=== PATIENT | male | born 1960 | race African-American/Black ===

== ENCOUNTER 2016-08-01 22:15 | Inpatient (IN) | payer OTHER, MEDICAID ==
[~2016-08-01] VITALS: Ht 188 cm; Wt 79.1 kg
[~2016-08-01 22:15] MED LIST: ASPI-807 PO; CALC667C PO; CARV25TA PO; CLOP75TA2 PO; FAMO20TA80 PO; FOLI1TAB16 PO; HYDR1TAB PO; LISI10TA5 PO; SEVE800T PO
[2016-08-01] MEDS ORDERED: FUROSEMIDE 40 MG/4 ML VIAL IV ONE (22:30)
[2016-08-01] MEDS ORDERED: ALBUTEROL FS 2.5 MG/3 ML VIAL.NEB NEB ONE (22:30)
[2016-08-01 22:50] LABS: BASOPHILS % (AUTO) 0.2 % (0.0-2.0); DIFF TOTAL % 100 %; EOSINOPHILS # (AUTO) 0.1 /CMM (0.0-0.7); HEMATOCRIT 34 % (39-51); HEMOGLOBIN 11.2 g/dL (13.5-17.5); LYMPHOCYTES # (AUTO) 0.7 /CMM (0.8-4.8); LYMPHOCYTES % (AUTO) 5.5 % (20.0-44.0); MEAN CORPUSCULAR HEMOGLOBIN 33 PG (26.0-33.0); MEAN CORPUSCULAR HGB CONC 33 g/dl (31.0-36.0); MEAN CORPUSCULAR VOLUME 100 fL (80-96); MONOCYTES # (AUTO) 0.9 /CMM (0.1-1.30); MONOCYTES % (AUTO) 7.6 % (2.0-12.0); NEUTROPHILS # (AUTO) 10.4 /CMM (1.8-8.9); NEUTROPHILS % (AUTO) 85.7 % (43.0-81.0); PLATELET COUNT (AUTO) 233 /CMM (150-450); RED BLOOD CELL COUNT(AUTO) 3.42 MIL/uL (4.5-6.0); WHITE BLOOD COUNT (AUTO) 12.1 K/uL (4.3-11.0)
[2016-08-01 22:58] LABS: CALCIUM, SERUM 9.2 mg/dL (8.5-10.1)
[2016-08-01 23:08] LABS: INR 1.02 (0.87-1.13); TROPONIN I 0.046 ng/mL (0.00-0.056)
[2016-08-01 23:10] LABS: LACTIC ACID 1.6 mmol/L (0.4-2.0)
[2016-08-01 23:11] LABS: CREATININE 8.2 mg/dL (0.6-1.3)
[2016-08-01 23:17] LABS: ALBUMIN 3.9 g/dL (3.4-5.0); BILIRUBIN,DIRECT 0.2 mg/dL (0.0-0.2); INDIRECT BILIRUBIN 0.8 mg/dL (0.0-1.1); TOTAL PROTEIN, SERUM 7.9 g/dL (6.4-8.2)
[2016-08-01] MEDS ORDERED: ALBUTEROL FS 2.5 MG/3 ML VIAL.NEB ONE (23:34)
[2016-08-01] MEDS ORDERED: FUROSEMIDE 40 MG/4 ML VIAL ONE (23:41)
[2016-08-02] MEDS ORDERED: ATOR20TA PO (00:48)
[2016-08-02 01:30] VITALS: BP 126/78
[2016-08-02 01:45] VITALS: BP 126/78
[2016-08-02] MEDS ORDERED: ONDANSETRON HCL/PF 4 MG/2 ML VIAL IVP PRN (02:00)
[2016-08-02] MEDS ORDERED: HYDROCODONE/APAP 5/325MG 1 EACH TABLET PO PRN (02:00)
[2016-08-02] MEDS ORDERED: ZOLPIDEM TARTRATE 5 MG TABLET PO PRN (02:00)
[2016-08-02] MEDS ORDERED: MAG HYDROX/AL HYDROX/SIMETH 30 ML UDC PO PRN (02:00)
[2016-08-02] MEDS ORDERED: ACETAMINOPHEN 325 MG TABLET PO PRN (02:00)
[2016-08-02] MEDS ORDERED: MAGNESIUM HYDROXIDE 30 ML UDC PO PRN (02:00)
[2016-08-02] MEDS ORDERED: Z GUARD REMEDY 2 OZ OINT TP PRN (02:00)
[2016-08-02] MEDS ORDERED: ACETAMINOPHEN 325 MG TABLET ONE (02:22)
[2016-08-02 08:00] VITALS: BP 125/69
[2016-08-02] MEDS: CLOPIDOGREL BISULFATE 75 MG TABLET PO SCH (09:54)
[2016-08-02] MEDS: FOLIC ACID 1 MG TABLET PO SCH (09:55)
[2016-08-02] MEDS: FAMOTIDINE (20 MG) 20 MG TABLET PO SCH ×2 (09:55→17:56)
[2016-08-02] MEDS: LISINOPRIL (10MG) 10 MG TABLET PO SCH (09:55)
[2016-08-02] MEDS: CARVEDILOL 3.125 MG TABLET PO SCH ×2 (09:57→21:19)
[2016-08-02] MEDS: ATORVASTATIN 10 MG TABLET PO SCH (09:57)
[2016-08-02] MEDS ORDERED: LEVOFLOXACIN (500MG) 500 MG TABLET PO SCH ×2 (10:00)
[2016-08-02] MEDS ORDERED: LEVOFLOXACIN (500MG) 500 MG TABLET PO ONE (10:00)
[2016-08-02 12:29] LABS: BASOPHILS # (AUTO) 0.1 /CMM (0.0-0.2); BASOPHILS % (AUTO) 0.4 % (0.0-2.0); DIFF TOTAL % 100 %; EOSINOPHILS # (AUTO) 0.3 /CMM (0.0-0.7); EOSINOPHILS % (AUTO) 1.9 % (0.0-6.0); HEMATOCRIT 31 % (39-51); HEMOGLOBIN 10.1 g/dL (13.5-17.5); LYMPHOCYTES # (AUTO) 0.9 /CMM (0.8-4.8); LYMPHOCYTES % (AUTO) 5.5 % (20.0-44.0); MEAN CORPUSCULAR HEMOGLOBIN 33 PG (26.0-33.0); MEAN CORPUSCULAR HGB CONC 33 g/dl (31.0-36.0); MEAN CORPUSCULAR VOLUME 101 fL (80-96); MONOCYTES # (AUTO) 0.7 /CMM (0.1-1.30); MONOCYTES % (AUTO) 4.1 % (2.0-12.0); NEUTROPHILS # (AUTO) 14.2 /CMM (1.8-8.9); NEUTROPHILS % (AUTO) 88.1 % (43.0-81.0); PLATELET COUNT (AUTO) 205 /CMM (150-450); RED BLOOD CELL COUNT(AUTO) 3.08 MIL/uL (4.5-6.0); WHITE BLOOD COUNT (AUTO) 16.1 K/uL (4.3-11.0)
[2016-08-02 12:49] LABS: IRON, SERUM 22 ug/dl (50-175); PERCENT SATURATION 13 % (14-33); TOTAL IRON BINDING CAPACITY 169 ug/dl (250-450)
[2016-08-02 12:55] LABS: ALBUMIN 3.1 g/dL (3.4-5.0); BILIRUBIN,TOTAL 0.7 mg/dL (0.2-1.0); CALCIUM, SERUM 8.4 mg/dL (8.5-10.1); PHOSPHORUS 3.6 mg/dL (2.5-4.9); POTASSIUM 4.7 mmol/L (3.5-5.1); TOTAL PROTEIN, SERUM 6.9 g/dL (6.4-8.2)
[2016-08-02 12:57] LABS: CREATININE 9.8 mg/dL (0.6-1.3)
[2016-08-02 13:04] LABS: THYROID STIMULATING HORMONE 0.265 uIU/mL (0.358-3.74)
[2016-08-02] MEDS: CALCIUM ACETATE 667 MG TABLET PO SCH ×2 (13:37→17:55)
[2016-08-02] MEDS: ALBUTEROL FS 2.5 MG/0.5 ML VIAL.NEB NEB SCH ×2 (14:29→20:13)
[2016-08-02 16:00] VITALS: BP 114/74
[2016-08-02 20:00] VITALS: BP 117/69
[2016-08-02 20:30] VITALS: BP 117/69
[2016-08-03] MEDS: ALBUTEROL FS 2.5 MG/0.5 ML VIAL.NEB NEB SCH ×4 (01:37→20:30)
[2016-08-03 07:02] LABS: DIFF TOTAL % 100 %; EOSINOPHILS # (AUTO) 0.4 /CMM (0.0-0.7); HEMATOCRIT 29 % (39-51); HEMOGLOBIN 9.5 g/dL (13.5-17.5); LYMPHOCYTES # (AUTO) 1.1 /CMM (0.8-4.8); LYMPHOCYTES % (AUTO) 9.5 % (20.0-44.0); MEAN CORPUSCULAR HEMOGLOBIN 33 PG (26.0-33.0); MEAN CORPUSCULAR HGB CONC 33 g/dl (31.0-36.0); MEAN CORPUSCULAR VOLUME 102 fL (80-96); MONOCYTES # (AUTO) 0.7 /CMM (0.1-1.30); MONOCYTES % (AUTO) 5.8 % (2.0-12.0); NEUTROPHILS # (AUTO) 9.7 /CMM (1.8-8.9); NEUTROPHILS % (AUTO) 81.7 % (43.0-81.0); PLATELET COUNT (AUTO) 194 /CMM (150-450); RED BLOOD CELL COUNT(AUTO) 2.86 MIL/uL (4.5-6.0); WHITE BLOOD COUNT (AUTO) 11.9 K/uL (4.3-11.0)
[2016-08-03 07:35] LABS: POTASSIUM 4.6 mmol/L (3.5-5.1)
[2016-08-03 08:00] VITALS: BP 139/94
[2016-08-03] MEDS: FAMOTIDINE (20 MG) 20 MG TABLET PO SCH ×2 (08:11→18:02)
[2016-08-03] MEDS: FOLIC ACID 1 MG TABLET PO SCH (08:11)
[2016-08-03] MEDS: CALCIUM ACETATE 667 MG TABLET PO SCH ×3 (08:11→18:02)
[2016-08-03] MEDS: FUROSEMIDE 40 MG/4 ML VIAL IV SCH (08:11)
[2016-08-03] MEDS: CARVEDILOL 3.125 MG TABLET PO SCH ×2 (08:12→21:27)
[2016-08-03] MEDS: ATORVASTATIN 10 MG TABLET PO SCH (08:12)
[2016-08-03] MEDS: CLOPIDOGREL BISULFATE 75 MG TABLET PO SCH (08:12)
[2016-08-03] MEDS: LISINOPRIL (10MG) 10 MG TABLET PO SCH (08:12)
[2016-08-03] MEDS: CODEINE/PROMETHAZINE HCL 5 ML UDC PO PRN ×2 (10:47→21:21)
[2016-08-03] MEDS ORDERED: EPOETIN ALFA (10,000 UNIT) 10,000 UNIT/ML VIAL IV ONE (11:30)
[2016-08-03 16:00] VITALS: BP 134/76
[2016-08-03] MEDS: ENALAPRIL MALEATE (5 MG) 5 MG TABLET PO SCH (18:03)
[2016-08-03 20:00] VITALS: BP 115/59
[2016-08-03 22:00] VITALS: BP 152/93
[2016-08-04] MEDS: ALBUTEROL FS 2.5 MG/0.5 ML VIAL.NEB NEB SCH ×2 (01:30→09:26)
[2016-08-04 07:39] LABS: BASOPHILS % (AUTO) 0.7 % (0.0-2.0); DIFF TOTAL % 100 %; EOSINOPHILS # (AUTO) 0.3 /CMM (0.0-0.7); EOSINOPHILS % (AUTO) 4.8 % (0.0-6.0); HEMATOCRIT 31 % (39-51); HEMOGLOBIN 10.1 g/dL (13.5-17.5); LYMPHOCYTES # (AUTO) 1.2 /CMM (0.8-4.8); LYMPHOCYTES % (AUTO) 16.4 % (20.0-44.0); MEAN CORPUSCULAR HEMOGLOBIN 33 PG (26.0-33.0); MEAN CORPUSCULAR HGB CONC 32 g/dl (31.0-36.0); MEAN CORPUSCULAR VOLUME 102 fL (80-96); MONOCYTES # (AUTO) 0.7 /CMM (0.1-1.30); MONOCYTES % (AUTO) 10.1 % (2.0-12.0); NEUTROPHILS # (AUTO) 4.8 /CMM (1.8-8.9); PLATELET COUNT (AUTO) 228 /CMM (150-450); RED BLOOD CELL COUNT(AUTO) 3.09 MIL/uL (4.5-6.0)
[2016-08-04] MEDS: CALCIUM ACETATE 667 MG TABLET PO SCH ×2 (07:58→12:55)
[2016-08-04 08:00] VITALS: BP 154/84
[2016-08-04 08:13] LABS: CALCIUM, SERUM 9.5 mg/dL (8.5-10.1); PHOSPHORUS 2.8 mg/dL (2.5-4.9)
[2016-08-04 08:14] LABS: CREATININE 7.6 mg/dL (0.6-1.3)
[2016-08-04] MEDS: FAMOTIDINE (20 MG) 20 MG TABLET PO SCH (09:18)
[2016-08-04] MEDS: ENALAPRIL MALEATE (5 MG) 5 MG TABLET PO SCH (09:22)
[2016-08-04 09:23] VITALS: BP 154/84
[2016-08-04] MEDS: CARVEDILOL 3.125 MG TABLET PO SCH (09:23)
[2016-08-04] MEDS: CLOPIDOGREL BISULFATE 75 MG TABLET PO SCH (09:24)
[2016-08-04] MEDS: ATORVASTATIN 10 MG TABLET PO SCH (09:25)
[2016-08-04] MEDS: FOLIC ACID 1 MG TABLET PO SCH (09:26)
[2016-08-04] MEDS: FUROSEMIDE 40 MG/4 ML VIAL IV SCH (09:26)
[2016-08-04] MEDS ORDERED: BENZ-13 PO (09:32)
[2016-08-04] MEDS ORDERED: ALBU2.5V13 NEB (09:32)
[2016-08-04] MEDS ORDERED: LEVOFLOXACIN (250MG) 250 MG TABLET PO SCH (10:00)
[2016-08-04] MEDS: CODEINE/PROMETHAZINE HCL 5 ML UDC PO PRN (12:54)
[2016-08-04] MEDS ORDERED: ALBUTEROL FS 2.5 MG/3 ML VIAL.NEB NEB SCH (13:30)
== END 2016-08-04 15:00 | disposition home or self-care (01) | DRG 291 ==
LOC: ER 22:16 → TELE 08-02 00:54 → MED 08-02 10:06
PROVIDERS: ADMIT Contractor; ATTEND Contractor
PROC: 5A1D00Z (ICD-10-PCS; principal; 2016-08-03)
DX: I13.2 Hypertensive heart and chronic kidney disease with heart failure and with stage 5 chronic kidney disease, or end stage renal disease (principal); I50.23 Acute on chronic systolic (congestive) heart failure; N18.6 End stage renal disease; J44.1 Chronic obstructive pulmonary disease with (acute) exacerbation; E44.0 Moderate protein-calorie malnutrition; E11.22 Type 2 diabetes mellitus with diabetic chronic kidney disease; Z99.2 Dependence on renal dialysis; D53.9 Nutritional anemia, unspecified; D72.829 Elevated white blood cell count, unspecified; F17.210 Nicotine dependence, cigarettes, uncomplicated; I25.10 Atherosclerotic heart disease of native coronary artery without angina pectoris; Z86.73 Personal history of transient ischemic attack (TIA), and cerebral infarction without residual deficits; Z95.810 Presence of automatic (implantable) cardiac defibrillator; E78.5 Hyperlipidemia, unspecified; J20.9 Acute bronchitis, unspecified; Z68.22 Body mass index [BMI] 22.0-22.9, adult; E61.1 Iron deficiency
CPT/HCPCS: 36415; 71010-TC; 80048-TC; 80053-TC; 80061-TC; 80076-TC; 82728-TC; 83540-TC; 83605-TC; 83735-TC; 83880; 84100-TC; 84443-TC; 84484-TC; 85025-TC; 85730-TC; 87040-TC; 87070-TC; 87081-TC; 93307-TC; A4606; J0885; J1940; Z7610

== ENCOUNTER 2018-12-17 12:36 | Inpatient (IN) | payer MEDICARE, OTHER ==
[~2018-12-17] VITALS: Ht 190.5 cm; Wt 85.7 kg
[~2018-12-17 12:36] MED LIST changes: +ALBU2.5V13 NEB; -ASPI-807 PO; +ATOR20TA PO; +BENZ-13 PO; +CLOP75TA15 PO; -CLOP75TA2 PO; -HYDR1TAB PO; -SEVE800T PO
--- NOTE | 2018-12-17 12:43 | NUR ---
PT TO ER BED 08 C/O R FOOT PAIN X 2 WEEKS. 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 [PT ALSO A DIALYSIS PATIENT AND WAS LAST DIALIZED SUNDAY OF LAST WEEK. PLACED ON MONITOR. AWAITING MD SAGE.
--- NOTE | 2018-12-17 13:33 | NUR ---
ROMULO FRAIRE AT BEDSIDE FOR EVAL.
--- NOTE | 2018-12-17 13:50 | NUR ---
IV LINE STARTED BLOOD DRAWN AND SENT TO LAB.
[2018-12-17] MEDS ORDERED: ONDANSETRON HCL/PF 4 MG/2 ML VIAL ONE ×2 (13:58→16:14)
[2018-12-17] MEDS ORDERED: MORPHINE SULFATE INJ 4 MG/ML DISP.SYRIN ONE ×2 (13:59→15:59)
[2018-12-17] MEDS ORDERED: IV NS 0.9% 1,000 ML BAG IV ONE (14:00)
[2018-12-17] MEDS ORDERED: MORPHINE SULFATE INJ 10 MG/ML DISP.SYRIN IV ONE ×2 (14:00→16:00)
[2018-12-17] MEDS ORDERED: ONDANSETRON HCL/PF - ER 4 MG/2 ML VIAL IV ONE ×2 (14:00→16:30)
--- NOTE | 2018-12-17 14:05 | NUR ---
CONFIRMED IV FLUID ORDER W/ BRUNILDA FRAIRE.
[2018-12-17 14:08] LABS: HEMATOCRIT 24 % (39-51); HEMOGLOBIN 7.6 g/dL (13.5-17.5); LYMPHOCYTES # (AUTO) 0.7 /CMM (0.8-4.8); LYMPHOCYTES % (AUTO) 3.6 % (20.0-44.0); MEAN CORPUSCULAR HGB CONC 33 g/dl (31.0-36.0); MEAN CORPUSCULAR VOLUME 98 fL (80-96); MONOCYTES # (AUTO) 1.5 /CMM (0.1-1.30); MONOCYTES % (AUTO) 7.6 % (2.0-12.0); NEUTROPHILS # (AUTO) 17.7 /CMM (1.8-8.9); NEUTROPHILS % (AUTO) 87.8 % (43.0-81.0); PLATELET COUNT (AUTO) 396 /CMM (150-450); RED BLOOD CELL COUNT(AUTO) 2.41 MIL/uL (4.5-6.0); WHITE BLOOD COUNT (AUTO) 20.2 K/uL (4.3-11.0)
[2018-12-17 14:22] LABS: POTASSIUM 4.7 mmol/L (3.5-5.1)
[2018-12-17 14:24] LABS: CALCIUM, SERUM 8.7 mg/dL (8.5-10.1)
[2018-12-17 14:28] LABS: BILIRUBIN,TOTAL 1.1 mg/dL (0.2-1.0)
[2018-12-17 14:29] LABS: ALBUMIN 2.4 g/dL (3.4-5.0); CREATININE 12.3 mg/dL (0.6-1.3); TOTAL PROTEIN, SERUM 7.4 g/dL (6.4-8.2)
[2018-12-17] MEDS ORDERED: VANCOMYCIN 1 GM in IV D5W 250 ML IV ONE (14:30)
[2018-12-17] MEDS ORDERED: SEVE800T8 PO (14:58)
[2018-12-17] MEDS ORDERED: ENAL5TAB PO (14:58)
[2018-12-17 15:38] LABS: EOSINOPHILS % (MANUAL) 1 % (0-4); LYMPHOCYTES % (MANUAL) 2 % (16-48); MONOCYTES % (MANUAL) 8 % (0-11.0); NEUTROPHILS % (MANUAL) 89 (42-76)
--- NOTE | 2018-12-17 15:52 | NUR ---
CALLED [facility]DR[facility] NEPHBEVERLY PAGED BARGEMAN
--- NOTE | 2018-12-17 16:13 | NUR ---
U/S TECH AT BEDSIDE FOR BLE DUPLEX ULTRASOUND.
--- NOTE | 2018-12-17 16:30 | NUR ---
REPAGED IDRIS FELIPE INTERNATIONAL MARKETING INTERN PINKY
[2018-12-17] MEDS ORDERED: FEE PK DOSING 1 MIN EA MC ONE (16:51)
[2018-12-17 18:00] VITALS: BP 126/72
--- NOTE | 2018-12-17 18:00 | NUR ---
RN NOTES PATIENT AWAKE ALERT AND ORIENTED, POOR HISTORIAN PATIENT BEING ADMITTED FOR WOUND COMPLICATION BY DR. COLUNGA. PT NOT WANTING TO HAVE BODY CHECK OR VITAL SIGNS DONE, REVIEWED RISKS AND MD ORDERS AND RECOMMENDATIONS WITH REINFORCEMENT NEEDED. PT REFUSED BODY CHECK AT THIS TIME, WILL ENDORSE TO NEXT SHIFT FOR ATTEMPT. IV ACCESS TO RIGHT HAND PATENT AND INTACT NO REDNESS OR INFILTRATION NOTED, PT ALSO WITH DIALYSIS ACCESS SITES NO BLEEDING NOTED. ENDORSED TO NEXT SHIFT FOR ADMISSION ASSESSMENT, DEAF INTERPRETER AWARE. ALL DUE MEDICATIONS GIVEN WITH NO ASE NOTED
[2018-12-17] MEDS: SEVELAMER CARBONATE 800 MG TABLET PO SCH ×2 (18:20→20:29)
[2018-12-17] MEDS: ENALAPRIL MALEATE (5 MG) 5 MG TABLET PO SCH (18:20)
[2018-12-17] MEDS: CALCIUM ACETATE 667 MG TABLET PO SCH (18:20)
[2018-12-17] MEDS: CARVEDILOL 3.125 MG TABLET PO SCH (18:20)
[2018-12-17] MEDS: CLOPIDOGREL BISULFATE 75 MG TABLET PO SCH (18:23)
[2018-12-17] MEDS ORDERED: Z GUARD REMEDY 2 OZ OINT TP PRN (18:30)
[2018-12-17] MEDS ORDERED: ACETAMINOPHEN 325 MG TABLET PO PRN (18:30)
[2018-12-17] MEDS ORDERED: MAG HYDROX/AL HYDROX/SIMETH 30 ML UDC PO PRN (18:30)
[2018-12-17] MEDS ORDERED: MAGNESIUM HYDROXIDE 30 ML UDC PO PRN (18:30)
[2018-12-17] MEDS ORDERED: ONDANSETRON HCL/PF 4 MG/2 ML VIAL IVP PRN (18:30)
[2018-12-17] MEDS: PIPERACILLIN /TAZOBACTAM 2.25 G in IV D5W 50 ML IV SCH (18:36)
[2018-12-17] MEDS: MORPHINE SULFATE INJ 2 MG/ML DISP.SYRIN IV PRN (20:29)
[2018-12-17 20:32] VITALS: BP 136/73
[2018-12-18] VITALS (7 sets, daily range): BP systolic 129–155; BP diastolic 64–79
[2018-12-18] MEDS: PIPERACILLIN /TAZOBACTAM 2.25 G in IV D5W 50 ML IV SCH ×3 (01:59→18:40)
[2018-12-18] MEDS: MORPHINE SULFATE INJ 2 MG/ML DISP.SYRIN IV PRN (06:14)
--- NOTE | 2018-12-18 08:04 | NUR ---
MS RN OPENING NOTES RECEIVED PATIENT IN BED, NOTED WITH EMESIS, DARK BROWN IN COLOR, MINIMAL AMOUNT. EMESIS BAG ON HAND. HOB ELEVATED. ELVER FISTULA HD ACCESS SITE. RIGHT HAND PERIPHERAL LINE INTACT. ABLE TO VERBALIZE NEEDS. BED IN LOWEST POSITION. BED SIDERAILS UPX2. CALL LIGHT WITHIN REACH.
--- NOTE | 2018-12-18 08:40 | NUR ---
MS RN NOTE PER PRIMARY HOSPITALIST CONTINUE TO MONITOR FOR EPISODES OF EMESIS FOR NOW, DO NOT NEED TO KEEP PT NPO, NO NEW ORDERS AT THIS TIME.
--- NOTE | 2018-12-18 08:46 | NUR ---
MS RN NOTE PER CONTROL CENTER OPERATOR THEY WERE UNABLE TO GET DRAW THIS AM AND WILL SEND ANOTHER TECH TO ATTEMPT LAB DRAW.
[2018-12-18] MEDS: CARVEDILOL 3.125 MG TABLET PO SCH ×2 (09:00→17:52)
[2018-12-18] MEDS: ENALAPRIL MALEATE (5 MG) 5 MG TABLET PO SCH (09:00)
[2018-12-18] MEDS: CALCIUM ACETATE 667 MG TABLET PO SCH ×3 (09:04→17:52)
[2018-12-18] MEDS: SEVELAMER CARBONATE 800 MG TABLET PO SCH ×3 (09:04→17:52)
--- NOTE | 2018-12-18 09:07 | NUR ---
MS RN NOTES HELD B/P MEDS, PATIENT WILL HAVE HD TODAY
[2018-12-18] MEDS: CLOPIDOGREL BISULFATE 75 MG TABLET PO SCH (10:04)
--- NOTE | 2018-12-18 11:19 | NUR ---
WOUND CARE CONSULT: PT PRESENTS WITH NECROTIC SURGICAL SITE TO RT FOOT AMPUTATION SITE WITH ELIE, NO DRAINAGE, PRESENT ON ADMISSION. PT NOT TURNED FOR FULL SKIN ASSESSMENT AT THIS TIME DUE TO PT ON DIALYSIS PRESENTLY. RECOMMEND DPM CONSULT. DR MACIAS NOTIFIED OF CONSULT REQUEST PER DR COLUNGA. WILL SEE PRN. SKIN PROTECTION RECOMMENDATIONS DISCUSSED WITH NURSING STAFF. MD IN AGREEMENT WITH PLAN OF CARE.
--- NOTE | 2018-12-18 11:40 | NUR ---
MS RN NOTE INFORMED PROTECTION AGENT YULIYA REGARDING PT REQUEST TO BE TRANSFERRED TO [facility] AND NOT BACK TO [facility]. YULIYA REQUESTED TO ASK PT IF [facility] WOULD BE APPROPRIATE, ASKED PT AND PER PT HE IS AGREEABLE TO BEING TRANSFERRED TO [facility] WHO HAS VASCULAR SURGEON, INFORMED YULIYA.
--- NOTE | 2018-12-18 12:00 | NUR ---
MS RN NOTE INFORMED FILEMON IN PHARMACY THAT PT IS CURRENTLY UNDERGOING HD AND VANCO TROUGH IS 18 TODAY, PER FILEMON THEY WILL PREPARE AND SEND UP VANCO.
[2018-12-18 12:19] LABS: BASOPHILS % (AUTO) 0.3 % (0.0-2.0); EOSINOPHILS % (AUTO) 1.3 % (0.0-6.0); HEMATOCRIT 21 % (39-51); LYMPHOCYTES # (AUTO) 0.7 /CMM (0.8-4.8); LYMPHOCYTES % (AUTO) 3.8 % (20.0-44.0); MEAN CORPUSCULAR HGB CONC 33 g/dl (31.0-36.0); MEAN CORPUSCULAR VOLUME 96 fL (80-96); MONOCYTES # (AUTO) 1.2 /CMM (0.1-1.30); MONOCYTES % (AUTO) 6.7 % (2.0-12.0); NEUTROPHILS # (AUTO) 16.2 /CMM (1.8-8.9); NEUTROPHILS % (AUTO) 87.9 % (43.0-81.0); PLATELET COUNT (AUTO) 373 /CMM (150-450); RED BLOOD CELL COUNT(AUTO) 2.15 MIL/uL (4.5-6.0); WHITE BLOOD COUNT (AUTO) 18.4 K/uL (4.3-11.0)
[2018-12-18 12:25] LABS: BILIRUBIN,TOTAL 0.9 mg/dL (0.2-1.0); CALCIUM, SERUM 8.8 mg/dL (8.5-10.1); MAGNESIUM 2.3 mg/dL (1.8-2.4); PHOSPHORUS 3.9 mg/dL (2.5-4.9); TOTAL PROTEIN, SERUM 6.7 g/dL (6.4-8.2)
--- NOTE | 2018-12-18 12:41 | NUR ---
MS RN NOTE REPORTED CRITICAL LAB VALUE OF HGB 6.9 TO PRIMARY HOSPITALIST , ORDERS RECIEVED TO TRANSFUSE 1 UNIT PRBC. VERIFIED VIA READBACK AND CARRIED OUT.
[2018-12-18 12:42] LABS: CREATININE 13.1 mg/dL (0.6-1.3)
[2018-12-18 12:50] LABS: THYROID STIMULATING HORMONE 1.19 uIU/mL (0.358-3.74)
[2018-12-18 12:53] LABS: HEMOGLOBIN 6.9 g/dL (13.5-17.5)
--- NOTE | 2018-12-18 13:00 | NUR ---
MS RN NOTE LIZZ HELD, PT DID NOT WANT TO EAT LUNCH AFTER HD COMPLETED.
--- NOTE | 2018-12-18 13:02 | NUR ---
MS RN NOTES SPOKE TO KULWINDER FROM (BLOOD BANK), NO NEED FOR ANOTHER TYPE AND SCREEN, ORDER EXPIRES ON 12/20/18.
--- NOTE | 2018-12-18 14:15 | NUR ---
NS RN BLOOD TRANSFUSION NOTES 1 UNIT PRBC VERIFIED BY 2 RN AND INITIATED. V/S 134/64, RR:14, HR: 98, T:97.4, O2 SAT 100%. DENIES ANY C/O PAIN NOR DISCOMFORT AT THIS TIME. WILL CONTINUE TO MONITOR FOR CHANGES.
[2018-12-18 14:23] LABS: EOSINOPHILS % (MANUAL) 2 % (0-4); LYMPHOCYTES % (MANUAL) 4 % (16-48); MONOCYTES % (MANUAL) 7 % (0-11.0); NEUTROPHILS % (MANUAL) 87 (42-76)
--- NOTE | 2018-12-18 14:30 | NUR ---
MS RN BLOOD TRANSFUSION NOTES V/S RECHECK, B/P 136/64, HR: 97, RR:12, T: 97.9, O2 SAT OF 95%. DENIES ANY C/O PAIN NOR DISCOMFORT AT THIS TIME. SAURABH BLOOD TRANSFUSION WELL WITHOUT S/S OF COMPLICATIONS. WILL CONTINUE TO MONITOR. CALL LIGHT WITHIN REACH.
[2018-12-18] MEDS ORDERED: VANCOMYCIN 500 MG in IV D5W 100 ML IV PRN (17:00)
[2018-12-18] MEDS ORDERED: LACTOBACILLUS RHAMNOSUS GG 1 EACH CAP.SPRINK PO SCH (17:00)
--- NOTE | 2018-12-18 17:20 | NUR ---
MS RN BLOOD TRANSFUSION PATIENT COMPLETED BLOOD TRANSFUSION AND RECEIVED 1 PRBCs WITHOUT S/S OF COMPLICATIONS.RIGHT HAND SL INTACT AND PATENT WITHOUT S/S OF INFILTRATION. DENIES ANY C/O PAIN NOR DISCOMFORT AT THIS TIME. ABLE TO VERBALIZE NEEDS, CALL LIGHT WITHIN REACH.
--- NOTE | 2018-12-18 17:29 | NUR ---
MS RN NOTE POST VANCO HD ADMINISTERED ORDERED LATE DUE TO PATIENT UNDERGOING BLOOD TRANSFUSION AFTER HD.
--- NOTE | 2018-12-18 19:00 | NUR ---
MS CLINICAL TRIAL HEAD INITIAL NOTES SEEN PT IN BED SITTING AWAKE AND ALERT WITH IVF STILL INFUSING ON HIS RIGHT HAND. NO SIGNS OF ANY DISTRESS NOTED. PT AWARE THAT HE'S DC TODAY AND GOING TO [facility]. PT COMPLAINING OF ABDOMINAL PAIN BUT NO N/V NOTED. VITAL SIGNS FF. BP 134/72, PULSE 108, RESP 20, TEMP 99.1 AND 98% IN ROOM AIR. KEPT HIM COMFORTABLE AT ALL TIMES. WILL CONTINUE MONITORING . PLACE CALL LIGHT AT REACH.
--- NOTE | 2018-12-18 19:01 | NUR ---
MS RN CLOSING NOTES PATIENT IN BED EATING DINNER. ALERT AND ORIENTED X4. NOTED PATIENT TO HAVE SLURRED SPEECH, BUT ABLE TO MAKE NEEDS KNOWN. DENIES ANY C/O PAIN NOR DISCOMFORT. NO SOB. HOB ELEVATED. ATE DINNER WITH FAIR INTAKE. S/P BLOOD TRANSFUSION WITHOUT S/S OF COMPLICATIONS. HAD HD DONE TODAY WITH 2L OUTPUT, SAURABH WELL. ELVER FISTULA WITIH GOOD BRUIT/THRILL. RIGHT HAND G#20 INTACT AND PATENT. CALLED DONAL REYNOLDS AND GAVE REPORT TO MIGEL. PER MIGEL, PATIENT WILL BE GOING TO LD UNIT, ROOM 1423. ENDORSED TO NEXT SHIFT. CALL LIGHT WITHIN REACH.
--- NOTE | 2018-12-18 19:41 | NUR ---
MS MARTY NOTES MAALOX GIVEN FOR UPSET STOMACH PER PT REQUESTED. WILL CONTINUE MONITORING.
--- NOTE | 2018-12-18 20:00 | NUR ---
MS ROLLER BEARING INSPECTOR CLOSING NOTES STOREPERSON CAME TO IT AUDIT MANAGER THE PT GOING OT DONAL CLAIRE. PT AWARE , BELONGING LIST CHECKED AND HAND HELD THE COPY OF THE CHART WELL BELONGING TO THE STOREPERSON. PT DENIES ANY PAIN OR N/V AT THIS TIME. NO SIGNS OF ANY DISTRESS NOTED. HEPLOCK ON HIS RIGHT HAND PATENT AND INTACT. PT LEFT WITH HEPLOCK ORDERED PER AM NURSE . NURSE. VITAL SIGNS FF. BP 134/72, PULSE 108, RESP 20, TEMP 99.1, O2 SAT 98%. PER AM NURSE SHE GAVE REPORT TO RN/MIGEL AND PT GOING TO ROOM 1423 BED # 2.
== END 2018-12-18 20:00 | disposition short-term general hospital (02) | DRG 564 ==
LOC: ER 12:40 → TELE 16:23 → MED 12-18 08:58
PROVIDERS: ADMIT Internal Medicine; ATTEND Internal Medicine
PROC: 5A1D70Z Performance of Urinary Filtration, Intermittent, Less than 6 Hours Per Day (ICD-10-PCS; principal; 2018-12-18)
PROC: 30233P1 Transfusion of Nonautologous Frozen Red Cells into Peripheral Vein, Percutaneous Approach (ICD-10-PCS; 2018-12-18)
DX: T87.81 Dehiscence of amputation stump (principal); N18.6 End stage renal disease; I69.351 Hemiplegia and hemiparesis following cerebral infarction affecting right dominant side; I12.0 Hypertensive chronic kidney disease with stage 5 chronic kidney disease or end stage renal disease; L03.115 Cellulitis of right lower limb; L97.319 Non-pressure chronic ulcer of right ankle with unspecified severity; Y83.9 Surgical procedure, unspecified as the cause of abnormal reaction of the patient, or of later complication, without mention of misadventure at the time of the procedure; Y92.89 Other specified places as the place of occurrence of the external cause; I25.10 Atherosclerotic heart disease of native coronary artery without angina pectoris; D63.8 Anemia in other chronic diseases classified elsewhere; F17.210 Nicotine dependence, cigarettes, uncomplicated; Z99.2 Dependence on renal dialysis; Z79.02 Long term (current) use of antithrombotics/antiplatelets; I70.233 Atherosclerosis of native arteries of right leg with ulceration of ankle
CPT/HCPCS: 36415; 71045-TC; 80053-TC; 80061-TC; 80202-TC; 83605-TC; 83735-TC; 84100-TC; 84443-TC; 84484-TC; 85025-TC; 85610-TC; 85730-TC; 86706; 86850-TC; 86921-TC; 87040-TC; 87081-TC; 87340; 90935-TC; A6253; A6403; G0378; J2270; J2405; J2543; J3370; J7030; J7050; J7060; P9016-BL

== ENCOUNTER 2018-12-22 12:40 | Inpatient (IN) | payer MEDICARE ==
[~2018-12-22] VITALS: Ht 190.5 cm; Wt 73.9 kg
[~2018-12-22 12:40] MED LIST changes: -ALBU2.5V13 NEB; -ATOR20TA PO; -BENZ-13 PO; +ENAL5TAB PO; -FAMO20TA80 PO; -FOLI1TAB16 PO; -LISI10TA5 PO; +SEVE800T8 PO
[2018-12-22 13:00] VITALS: BP 124/72
[2018-12-22] MEDS ORDERED: METO25TA20 PO (13:14)
[2018-12-22] MEDS ORDERED: CEFE1VIA3 IV (13:14)
[2018-12-22] MEDS ORDERED: ONDA4VIA52 IV (13:14)
[2018-12-22] MEDS ORDERED: HYDR1DIS2 IV (13:14)
[2018-12-22] MEDS ORDERED: BALS60OI4 TP (13:14)
[2018-12-22] MEDS ORDERED: HEPA50008 SQ (13:14)
[2018-12-22] MEDS ORDERED: HYDR-4384 PO (13:14)
[2018-12-22] MEDS ORDERED: VANC1VIA2 IV (13:14)
[2018-12-22] MEDS ORDERED: EPOE1VIA4 SQ (13:21)
[2018-12-22] MEDS ORDERED: ONDANSETRON HCL/PF 4 MG/2 ML VIAL IVP PRN (14:30)
[2018-12-22] MEDS ORDERED: MAGNESIUM HYDROXIDE 30 ML UDC PO PRN (14:30)
[2018-12-22] MEDS ORDERED: MAG HYDROX/AL HYDROX/SIMETH 30 ML UDC PO PRN (14:30)
[2018-12-22] MEDS ORDERED: ACETAMINOPHEN 325 MG TABLET PO PRN (14:30)
[2018-12-22] MEDS ORDERED: DEXTROSE 50%-WATER 50 ML DISP.SYRIN IV PRN (14:30)
[2018-12-22] MEDS ORDERED: HYDROCODONE/APAP 5/325MG 1 EACH TABLET PO PRN (14:30)
[2018-12-22] MEDS ORDERED: TEMAZEPAM 15 MG CAPSULE PO PRN (14:30)
[2018-12-22 15:15] LABS: BASOPHILS # (AUTO) 0.1 /CMM (0.0-0.2); BASOPHILS % (AUTO) 0.5 % (0.0-2.0); EOSINOPHILS % (AUTO) 2.4 % (0.0-6.0); HEMATOCRIT 27 % (39-51); HEMOGLOBIN 8.9 g/dL (13.5-17.5); LYMPHOCYTES # (AUTO) 0.7 /CMM (0.8-4.8); LYMPHOCYTES % (AUTO) 6.9 % (20.0-44.0); MEAN CORPUSCULAR HGB CONC 33 g/dl (31.0-36.0); MEAN CORPUSCULAR VOLUME 93 fL (80-96); MONOCYTES # (AUTO) 0.8 /CMM (0.1-1.30); MONOCYTES % (AUTO) 7.9 % (2.0-12.0); NEUTROPHILS # (AUTO) 8.5 /CMM (1.8-8.9); NEUTROPHILS % (AUTO) 82.3 % (43.0-81.0); PLATELET COUNT (AUTO) 322 /CMM (150-450); RED BLOOD CELL COUNT(AUTO) 2.87 MIL/uL (4.5-6.0); WHITE BLOOD COUNT (AUTO) 10.3 K/uL (4.3-11.0)
[2018-12-22 15:21] LABS: CREATININE 6.1 mg/dL (0.6-1.3); POTASSIUM 4.3 mmol/L (3.5-5.1)
[2018-12-22 16:00] VITALS: BP 124/78
[2018-12-22 16:13] LABS: BAND % (MANUAL) 1 % (0.0-5.0); LYMPHOCYTES % (MANUAL) 11 % (16-48); MONOCYTES % (MANUAL) 5 % (0-11.0); NEUTROPHILS % (MANUAL) 79 (42-76); REACTIVE LYMPHOCYTES 4 % (0-0)
[2018-12-22] MEDS ORDERED: VANCOMYCIN 500 MG in IV D5W 100 ML IV PRN (17:00)
[2018-12-22] MEDS ORDERED: FEE PK DOSING 1 MIN EA MC ONE (17:02)
[2018-12-22] MEDS: HYDROCODONE/APAP 10/325MG 1 EA TABLET PO PRN (17:15)
[2018-12-22] MEDS: BLOOD SUGAR DIAGNOSTIC 1 EACH STRIP IN SCH ×2 (17:30→22:00)
[2018-12-23] MEDS: BLOOD SUGAR DIAGNOSTIC 1 EACH STRIP IN SCH ×4 (07:30→21:34)
[2018-12-23 08:00] VITALS: BP 151/77
[2018-12-23] MEDS: SEVELAMER CARBONATE 0.8 GM POWD.PACK PO SCH ×3 (08:30→17:33)
[2018-12-23] MEDS ORDERED: ONDANSETRON HCL/PF 4 MG/2 ML VIAL IV PRN (08:30)
[2018-12-23] MEDS ORDERED: HYDROMORPHONE 1 MG/1 ML DISP.SYRIN IV PRN (08:30)
[2018-12-23] MEDS ORDERED: HOME MED MISCELLANEOUS XX SCH (08:30)
[2018-12-23] MEDS: CALCIUM ACETATE 667 MG TABLET PO SCH ×3 (08:30→17:33)
[2018-12-23] MEDS ORDERED: HYDROCODONE/APAP 5/325MG 1 EACH TABLET PO PRN (08:30)
[2018-12-23] MEDS ORDERED: EPOE1VIA4 SQ (08:34)
[2018-12-23] MEDS: CEFEPIME 1 GM in IV D5W 50 ML IV SCH ×2 (09:00→14:53)
[2018-12-23] MEDS: ENALAPRIL MALEATE (5 MG) 5 MG TABLET PO SCH (09:00)
[2018-12-23] MEDS: METOPROLOL TARTRATE 25 MG TABLET PO SCH ×2 (09:00→16:56)
[2018-12-23] MEDS: CLOPIDOGREL BISULFATE 75 MG TABLET PO SCH ×2 (09:00→11:52)
[2018-12-23] MEDS ORDERED: EPOETIN ALFA (10,000 UNIT) 10,000 UNIT/ML VIAL IV ONE (12:30)
[2018-12-23 14:30] LABS: CALCIUM, SERUM 8.9 mg/dL (8.5-10.1); CREATININE 7.4 mg/dL (0.6-1.3); MAGNESIUM 2.3 mg/dL (1.8-2.4); PHOSPHORUS 3.7 mg/dL (2.5-4.9); POTASSIUM 4.4 mmol/L (3.5-5.1)
[2018-12-23 14:32] LABS: BASOPHILS # (AUTO) 0.1 /CMM (0.0-0.2); BASOPHILS % (AUTO) 0.8 % (0.0-2.0); EOSINOPHILS % (AUTO) 2.4 % (0.0-6.0); HEMATOCRIT 27 % (39-51); HEMOGLOBIN 8.9 g/dL (13.5-17.5); LYMPHOCYTES # (AUTO) 0.9 /CMM (0.8-4.8); LYMPHOCYTES % (AUTO) 9.1 % (20.0-44.0); MEAN CORPUSCULAR HGB CONC 33 g/dl (31.0-36.0); MEAN CORPUSCULAR VOLUME 94 fL (80-96); MONOCYTES # (AUTO) 0.8 /CMM (0.1-1.30); MONOCYTES % (AUTO) 8.6 % (2.0-12.0); NEUTROPHILS # (AUTO) 7.8 /CMM (1.8-8.9); NEUTROPHILS % (AUTO) 79.1 % (43.0-81.0); PLATELET COUNT (AUTO) 342 /CMM (150-450); RED BLOOD CELL COUNT(AUTO) 2.83 MIL/uL (4.5-6.0); WHITE BLOOD COUNT (AUTO) 9.9 K/uL (4.3-11.0)
[2018-12-23] MEDS: HEPARIN SODIUM, PORCINE 5000 UNITS/1 ML VIAL SQ SCH ×2 (14:48→21:12)
[2018-12-23] MEDS ORDERED: EPOETIN ALFA (2000 UNIT) 2,000 UNIT/ML VIAL IV SCH (15:00)
[2018-12-23 15:18] LABS: BAND % (MANUAL) 2 % (0.0-5.0); EOSINOPHILS % (MANUAL) 3 % (0-4); LYMPHOCYTES % (MANUAL) 12 % (16-48); MONOCYTES % (MANUAL) 7 % (0-11.0); NEUTROPHILS % (MANUAL) 76 (42-76)
[2018-12-23 16:00] VITALS: BP 146/82
[2018-12-23] MEDS ORDERED: QUETIAPINE FUMARATE 25 MG TABLET PO PRN (17:00)
[2018-12-23] MEDS: LACTOBACILLUS RHAMNOSUS GG 1 EACH CAP.SPRINK PO SCH (17:32)
[2018-12-23 20:00] VITALS: BP 159/77
[2018-12-23] MEDS: INSULIN REGULAR, HUMAN 100 UNIT/ML 3 ML VIAL SQ PRN (21:36)
[2018-12-24] MEDS: HYDROCODONE/APAP 10/325MG 1 EA TABLET PO PRN ×3 (05:18→21:48)
[2018-12-24] MEDS: HEPARIN SODIUM, PORCINE 5000 UNITS/1 ML VIAL SQ SCH ×3 (05:19→21:58)
[2018-12-24] MEDS: BLOOD SUGAR DIAGNOSTIC 1 EACH STRIP IN SCH ×4 (06:05→21:56)
[2018-12-24] MEDS: INSULIN REGULAR, HUMAN 100 UNIT/ML 3 ML VIAL SQ PRN (06:05)
[2018-12-24 08:00] VITALS: BP 121/67
[2018-12-24] MEDS: ENALAPRIL MALEATE (5 MG) 5 MG TABLET PO SCH (09:00)
[2018-12-24] MEDS: METOPROLOL TARTRATE 25 MG TABLET PO SCH ×2 (09:00→16:55)
[2018-12-24] MEDS: CLOPIDOGREL BISULFATE 75 MG TABLET PO SCH (09:03)
[2018-12-24] MEDS: SEVELAMER CARBONATE 0.8 GM POWD.PACK PO SCH ×3 (09:03→18:46)
[2018-12-24] MEDS: LACTOBACILLUS RHAMNOSUS GG 1 EACH CAP.SPRINK PO SCH ×2 (09:03→16:54)
[2018-12-24] MEDS: CALCIUM ACETATE 667 MG TABLET PO SCH ×3 (09:03→18:46)
[2018-12-24 16:00] VITALS: BP 150/80
[2018-12-24] MEDS: CLOTRIMAZOLE 1% 15 GM TUBE TP SCH (17:00)
[2018-12-24 20:00] VITALS: BP 141/75
[2018-12-25] MEDS: HEPARIN SODIUM, PORCINE 5000 UNITS/1 ML VIAL SQ SCH ×2 (05:09→13:00)
[2018-12-25 08:00] VITALS: BP 138/77
[2018-12-25] MEDS: BLOOD SUGAR DIAGNOSTIC 1 EACH STRIP IN SCH ×2 (08:57→12:00)
[2018-12-25] MEDS: ENALAPRIL MALEATE (5 MG) 5 MG TABLET PO SCH (09:08)
[2018-12-25] MEDS: LACTOBACILLUS RHAMNOSUS GG 1 EACH CAP.SPRINK PO SCH (09:08)
[2018-12-25] MEDS: METOPROLOL TARTRATE 25 MG TABLET PO SCH (09:08)
[2018-12-25] MEDS: CLOPIDOGREL BISULFATE 75 MG TABLET PO SCH (09:09)
[2018-12-25] MEDS: SEVELAMER CARBONATE 0.8 GM POWD.PACK PO SCH ×2 (09:09→13:00)
[2018-12-25] MEDS: CALCIUM ACETATE 667 MG TABLET PO SCH ×2 (09:09→13:00)
[2018-12-25] MEDS: CLOTRIMAZOLE 1% 15 GM TUBE TP SCH (09:29)
[2018-12-25 16:00] VITALS: BP 126/67
== END 2018-12-25 16:30 | DRG 564 ==
LOC: MED 12:40
PROVIDERS: ADMIT Nurse Practitioner Acute Care; ATTEND Family Medicine
PROC: 5A1D70Z Performance of Urinary Filtration, Intermittent, Less than 6 Hours Per Day (ICD-10-PCS; principal; 2018-12-23)
PROC: 5A1D70Z Performance of Urinary Filtration, Intermittent, Less than 6 Hours Per Day (ICD-10-PCS; 2018-12-24)
DX: T87.81 Dehiscence of amputation stump (principal); N18.6 End stage renal disease; G93.41 Metabolic encephalopathy; L03.115 Cellulitis of right lower limb; I13.2 Hypertensive heart and chronic kidney disease with heart failure and with stage 5 chronic kidney disease, or end stage renal disease; I69.351 Hemiplegia and hemiparesis following cerebral infarction affecting right dominant side; D68.59 Other primary thrombophilia; Z99.2 Dependence on renal dialysis; I25.10 Atherosclerotic heart disease of native coronary artery without angina pectoris; F17.210 Nicotine dependence, cigarettes, uncomplicated; Y83.9 Surgical procedure, unspecified as the cause of abnormal reaction of the patient, or of later complication, without mention of misadventure at the time of the procedure; Y92.89 Other specified places as the place of occurrence of the external cause; I73.9 Peripheral vascular disease, unspecified; I70.90 Unspecified atherosclerosis; I50.9 Heart failure, unspecified; Z95.810 Presence of automatic (implantable) cardiac defibrillator; R73.9 Hyperglycemia, unspecified; Z59.0 Homelessness; H54.62 Unqualified visual loss, left eye, normal vision right eye; G89.29 Other chronic pain; M54.9 Dorsalgia, unspecified; Z91.19 Patient's noncompliance with other medical treatment and regimen; I69.320 Aphasia following cerebral infarction; B35.1 Tinea unguium; F39 Unspecified mood [affective] disorder; D63.1 Anemia in chronic kidney disease; F43.20 Adjustment disorder, unspecified
CPT/HCPCS: 36415; 80048-TC; 80202-TC; 82962-TC; 83735-TC; 84100-TC; 85025-TC; 97110-TC; 97112-TC; 97530-TC; A6253; A6402; G0378; J0692; J0885; J1170; J1644; J1815; J7050; J7060

== ENCOUNTER 2021-02-14 18:22 | Emergency (ER) | payer OTHER ==
[~2021-02-14] VITALS: Ht 190.5 cm; Wt 74.8 kg
[~2021-02-14 18:22] MED LIST changes: +BALS60OI4 TP; -CARV25TA PO; +ENAL-78 PO; -ENAL5TAB PO; +EPOE1VIA4 SQ; +HEPA50008 SQ; +HYDR-4384 PO; +HYDR1DIS2 IV; +METO25TA20 PO; +ONDA4VIA52 IV
--- NOTE | 2021-02-14 19:45 | NUR ---
Line started on r fa g 20, blood drawn from line and sent to lab
[2021-02-14 19:46] LABS: BASOPHILS % (AUTO) 0.5 % (0.0-2.0); EOSINOPHILS % (AUTO) 5.5 % (0.0-6.0); HEMATOCRIT 31 % (39-51); HEMOGLOBIN 10.1 g/dL (13.5-17.5); LYMPHOCYTES # (AUTO) 0.6 K/uL (0.8-4.8); LYMPHOCYTES % (AUTO) 17.6 % (20.0-44.0); MEAN CORPUSCULAR HGB CONC 33 g/dl (31.0-36.0); MEAN CORPUSCULAR VOLUME 94 fL (80-96); MONOCYTES # (AUTO) 0.5 K/uL (0.1-1.30); MONOCYTES % (AUTO) 13.5 % (2.0-12.0); NEUTROPHILS # (AUTO) 2.1 K/uL (1.8-8.9); NEUTROPHILS % (AUTO) 62.9 % (43.0-81.0); PLATELET COUNT (AUTO) 259 K/uL (150-450); RED BLOOD CELL COUNT(AUTO) 3.28 MIL/uL (4.5-6.0); WHITE BLOOD COUNT (AUTO) 3.3 K/uL (4.3-11.0)
[2021-02-14 19:52] LABS: CALCIUM, SERUM 8.9 mg/dL (8.5-10.1); CREATININE 3.5 mg/dL (0.6-1.3); POTASSIUM 3.3 mmol/L (3.5-5.1)
--- NOTE | 2021-02-14 20:30 | NUR ---
CALLED [facility] ACCORDING TO THE PAPERWORK THAT THE PT CAME IN WITH. FACILITY SAID PT HAS BEEN DISCHARGED FOR A WEEK AND WILL NOT RE ACCEPT THE PT. SPOKE WITH POLISH MAKER AND AWAITING CALL BACK REGARDING STATUS OF PT.
--- NOTE | 2021-02-14 21:41 | NUR ---
CALLED THE [facility] THAT PT CAME FROM IN [place] TO ASK WHAT FACILITY PT WAS SENT FROM. NO ANSWER SINCE AFTER HOURS. MESSAGE LEFT AND AWAITING CALL BACK.
--- NOTE | 2021-02-14 23:52 | NUR ---
PATIENT FOR SOCIAL WORK CONSULT IN THE AM
--- NOTE | 2021-02-15 03:24 | NUR ---
PT ASLEEP, NO DISTRESS NOTED. AROUSABLE. DENIES PAIN. VSS. CONTINUE TO MONITOR HIM.
--- NOTE | 2021-02-15 03:30 | NUR ---
CALLED [facility] NO ANSWER AT THIS TIME
--- NOTE | 2021-02-15 07:51 | NUR ---
The patient is sleeping in ER bed #12. Responsive to verbal stimuli. Respiration regular and unlabored. Attched to the monitor. Will continue to monitor the patient.
--- NOTE | 2021-02-15 09:05 | NUR ---
spoke to destin [phone] patient stay in [place] in the [place] [address] [place] [address]
--- NOTE | 2021-02-15 09:09 | NUR ---
[facility] CALLED ETA 60 MINS.
[2021-02-15 10:02] VITALS: BP 146/81
--- NOTE | 2021-02-15 10:03 | NUR ---
patient left in stable condition going back to board and care in no distress.
== END 2021-02-15 10:02 ==
LOC: ER 18:34
DX: I95.9 Hypotension, unspecified (principal); I13.2 Hypertensive heart and chronic kidney disease with heart failure and with stage 5 chronic kidney disease, or end stage renal disease; E11.22 Type 2 diabetes mellitus with diabetic chronic kidney disease; N18.6 End stage renal disease; I50.9 Heart failure, unspecified; Z99.2 Dependence on renal dialysis; F17.200 Nicotine dependence, unspecified, uncomplicated; I48.91 Unspecified atrial fibrillation; Z86.73 Personal history of transient ischemic attack (TIA), and cerebral infarction without residual deficits; Z98.890 Other specified postprocedural states; Z79.899 Other long term (current) drug therapy
CPT/HCPCS: 36415; 71045-TC; 80048-TC; 85025-TC; J7030

== ENCOUNTER 2021-07-13 09:17 | Inpatient (IN) | payer OTHER ==
[~2021-07-13] VITALS: Ht 195.6 cm; Wt 63.1 kg
--- NOTE | 2021-07-13 09:17 | NUR ---
PT B[facility]RA FROM DIALYSIS CENTER C/O MALFUNCTION LEFT ARM FISTULA,UNABLE TO COMPLETE DIALYSIS. PT IS AAOX3, NOT IN RESPIRATORY DISTRESS, HOOKED TO AUTO GARAGE ATTENDANT, KEPT RESTED AND COMFORTABLE. WILL CONTINUE TO MONITOR.
--- NOTE | 2021-07-13 09:30 | NUR ---
IV LINE ESTABLISHED BLOOD DRAWN AND SENT TO LAB.
--- NOTE | 2021-07-13 09:40 | NUR ---
SEEN AND EXAMINED BY .
[2021-07-13 09:57] LABS: BASOPHILS % (AUTO) 0.7 % (0.0-2.0); EOSINOPHILS % (AUTO) 14.6 % (0.0-6.0); HEMATOCRIT 36 % (39-51); HEMOGLOBIN 11.3 g/dL (13.5-17.5); LYMPHOCYTES # (AUTO) 0.7 K/uL (0.8-4.8); LYMPHOCYTES % (AUTO) 15.3 % (20.0-44.0); MEAN CORPUSCULAR HGB CONC 32 g/dl (31.0-36.0); MEAN CORPUSCULAR VOLUME 97 fL (80-96); MONOCYTES # (AUTO) 0.4 K/uL (0.1-1.30); MONOCYTES % (AUTO) 9.5 % (2.0-12.0); NEUTROPHILS # (AUTO) 2.8 K/uL (1.8-8.9); NEUTROPHILS % (AUTO) 59.9 % (43.0-81.0); PLATELET COUNT (AUTO) 158 K/uL (150-450); RED BLOOD CELL COUNT(AUTO) 3.66 MIL/uL (4.5-6.0); WHITE BLOOD COUNT (AUTO) 4.6 K/uL (4.3-11.0)
--- NOTE | 2021-07-13 10:24 | NUR ---
ULTRASOUND AT BEDSIDE
[2021-07-13 10:42] LABS: CALCIUM, SERUM 8.8 mg/dL (8.5-10.1)
--- NOTE | 2021-07-13 11:46 | NUR ---
MOVE SHEET SUBMITTED AND CALLED FOR TELE BED.
--- NOTE | 2021-07-13 11:51 | NUR ---
UNABLE TO UPDATE HOME MEDICATION INFORMATION AT THIS TIME. FROM SNF, CALLED AND REQUESTED RECORDS X3 AT [facility] . PER RUG DESIGNER, UNABLE TO HELP AT THIS TIME DUE TO NURSES ARE BUSY. PATIENT UNABLE TO RECALL MEDICATION INFORMATION.
--- NOTE | 2021-07-13 12:29 | NUR ---
COVID SPECIMEN OBTAINED AND SENT TO LAB.
--- NOTE | 2021-07-13 18:41 | NUR ---
Alanna murray in [place] - 07/13/21 at 1851 by BUD CALLED [facility] [phone] KAMILAH EWING
--- NOTE | 2021-07-13 18:41 | NUR ---
CALLED [facility] [phone] KAMILAH WHITAKER.
--- NOTE | 2021-07-14 | NUR ---
PATIENT RESTING IN BED WATCHING TV. PATIENT VSS AT THIS TIME. NO ACUTE DISTRESS NOTED. PATIENT CONNECTED TO CARDIAC AND POX MONITORS. PT RFA 20G IV INTACT FLUSHING WELL. SITTER AT BEDSIDE. WILL CONTINUE TO MONITOR.
[2021-07-14] MEDS ORDERED: GUAIFENESIN LA 600 MG TABLET.SA PO ONE (06:28)
[2021-07-14] MEDS ORDERED: GUAIFENESIN LA 600 MG TABLET.SA PO SCH (06:30)
[2021-07-14 09:40] LABS: CALCIUM, SERUM 8.7 mg/dL (8.5-10.1); POTASSIUM 5.8 mmol/L (3.5-5.1)
[2021-07-14 09:51] LABS: CREATININE 9.5 mg/dL (0.6-1.3)
--- NOTE | 2021-07-14 10:09 | NUR ---
SPOKE WITH ELIZABETH DEY WILL FOLLOW UP
[2021-07-14] MEDS ORDERED: CALCIUM CHLORIDE 1,000 MG/10 ML DISP.SYRIN IV ONE (11:00)
[2021-07-14] MEDS ORDERED: CALCIUM CHLORIDE 1,000 MG/10 ML DISP.SYRIN ONE (11:06)
--- NOTE | 2021-07-14 11:20 | NUR ---
SEEN BY IVELISSE ORDAZ
[2021-07-14] MEDS ORDERED: ZOLPIDEM TARTRATE 5 MG TABLET PO PRN (12:00)
[2021-07-14] MEDS ORDERED: ONDANSETRON HCL/PF - ER 4 MG/2 ML VIAL IV ONE (12:00)
[2021-07-14] MEDS ORDERED: ONDANSETRON HCL/PF 4 MG/2 ML VIAL IVP PRN (12:00)
[2021-07-14] MEDS ORDERED: Z GUARD REMEDY 4 OZ OINT TP PRN (12:00)
[2021-07-14] MEDS ORDERED: ONDANSETRON HCL/PF 4 MG/2 ML VIAL ONE (12:12)
[2021-07-14] MEDS ORDERED: CRAN1CAP10 PO (12:25)
[2021-07-14] MEDS ORDERED: LORA-259 PO (12:25)
[2021-07-14] MEDS ORDERED: FURO-145 PO (12:25)
[2021-07-14] MEDS ORDERED: QUET25TA PO (12:25)
[2021-07-14] MEDS ORDERED: VIT1TABL46 PO (12:25)
[2021-07-14] MEDS ORDERED: DOCU-141 PO (12:25)
[2021-07-14] MEDS ORDERED: CHOL200013 PO (12:25)
[2021-07-14] MEDS ORDERED: PANT40TA49 PO (12:25)
[2021-07-14] MEDS ORDERED: CARV25TA PO (12:25)
[2021-07-14] MEDS ORDERED: ALBU2.5V13 IH (12:25)
[2021-07-14] MEDS ORDERED: ATOR20TA PO (12:26)
[2021-07-14] MEDS ORDERED: INSULIN REGULAR, HUMAN 100 UNIT/ML 10 ML VIAL IV ONE (13:00)
[2021-07-14] MEDS ORDERED: SODIUM POLYSTYRENE SULFONATE 15 G/60 ML BOTTLE PO ONE (13:00)
[2021-07-14] MEDS ORDERED: DEXTROSE 50%-WATER 50 ML DISP.SYRIN IVP ONE (13:00)
[2021-07-14] MEDS ORDERED: SODIUM BICARBONATE SYR 50 MEQ/50 ML DISP.SYRIN IV ONE (13:00)
[2021-07-14] MEDS ORDERED: SODIUM POLYSTYRENE SULFONATE 15 G/60 ML BOTTLE ONE (13:01)
[2021-07-14] MEDS ORDERED: DEXTROSE 50%-WATER 50 ML DISP.SYRIN ONE (13:01)
[2021-07-14] MEDS ORDERED: SODIUM BICARBONATE SYR 50 MEQ/50 ML DISP.SYRIN ONE (13:01)
[2021-07-14] MEDS ORDERED: INSULIN REGULAR, HUMAN 100 UNIT/ML 10 ML VIAL ONE (13:01)
--- NOTE | 2021-07-14 14:09 | NUR ---
GOT BED 309-1
--- NOTE | 2021-07-14 14:40 | NUR ---
REPORT GIVEN TO LUDIN CROWLEY FOR MARCELO
[2021-07-14 15:10] VITALS: BP 148/87
[2021-07-14 16:00] VITALS: BP 153/93
[2021-07-14] MEDS ORDERED: ALBUTEROL FS 2.5 MG/3 ML VIAL.NEB NEB PRN (16:00)
--- NOTE | 2021-07-14 16:05 | NUR ---
EDGE BASTER ADMITTING NOTES ADMITTED A 61 Y/O MALE TO UNIT VIA GURNEY AT 1500 WITH DIAGNOSIS OF AV FISTULA THROMBOSIS. PT IS A/O X3-4. ABLE TO MAKE NEEDS KNOWN, DENIES PAIN OR ANY DISCOMFORT AT THIS TIME. PT ORIENTED TO STAFF AND ROOM. V/S TAKEN AND RECORDED. PT ON 02 VIA N/C AT 2LPM, TOLERATING WELL WITH NO ACUTE DISTRESS NOTED. 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 PHOTOS OF SKIN ISSUES TAKEN AND FILED IN HIS CHART. PT WITH AV FISTULA ON ELVER WITH POSITIVE BRUIT/SHRILL NOTED. IV ACCESS PRESENT ON RIGHT HAND G#20 AND PATENT. PT PLACED ON EXTERNAL MOTOR EQUIPMENT LIEUTENANT WITH READING OF NSR WITH PAC'S, HR ON THE 90'S, NO C/O CARDIAC DISTRESS VOICED. SAFETY MEASURES INITIATED: BED PLACED IN LOWEST LOCKED POSITION WITH SIDE-RAILS UP X2, BED ALARM ON AND CALL LIGHT PLACED W/I EASY REACH OF PT. WILL CONTINUE TO MONITOR.
[2021-07-14] MEDS: BLOOD SUGAR DIAGNOSTIC 1 EACH STRIP IN SCH ×2 (17:22→22:17)
[2021-07-14] MEDS: INSULIN REGULAR, HUMAN 100 UNIT/ML 3 ML VIAL SQ PRN (17:23)
[2021-07-14] MEDS: SEVELAMER CARBONATE 800 MG TABLET PO SCH (17:35)
[2021-07-14] MEDS: CARVEDILOL 12.5 MG TABLET PO SCH (17:35)
[2021-07-14] MEDS: QUETIAPINE FUMARATE 25 MG TABLET PO SCH (17:36)
--- NOTE | 2021-07-14 18:51 | NUR ---
ELECTRICIAN HELPER AUTOMOTIVE CLOSING NOTES PT IN BED AWAKE AND RESTING AT SEMI-LORA'S POSITION. A/O X3-4. ABLE TO MAKE NEEDS KNOWN. ON 02 VIA N/C AT 2LPM, TOLERATING WELL WITH NO ACUTE DISTRESS NOTED. IV ACCESS ON RIGHT HAND G#20 INTACT, PATENT AND FLUSHES WELL. ON EXTERNAL GENERAL INTERNAL MEDICINE DOCTOR WITH CURRENT READING OF NSR WITH IST DEGREE AV BLOCK, HR ON THE 90'S, NO C/O CARDIAC DISTRESS VOICED. ALL NEEDS AND CARE ATTENDED WELL. SAFETY MEASURES MAINTAINED: BED IN LOWEST LOCKED POSITION WITH SIDE-RAILS UP X2, BED ALARM ON AND CALL LIGHT PLACED W/I EASY REACH OF PT. WILL ENDORSE MARCELO TO NIGHTY SHIFT NURSE.
[2021-07-14 20:00] VITALS: BP 166/88
[2021-07-14] MEDS ORDERED: Medication Not On Formulary EA (Atorvastatin Calcium (Lipitor) 20 MG) PO SCH (22:00)
[2021-07-14] MEDS: ATORVASTATIN 10 MG TABLET PO SCH (22:17)
[2021-07-14] MEDS: LORAZEPAM 1 MG TABLET PO SCH (22:17)
[2021-07-14] MEDS: HEPARIN SODIUM, PORCINE 5000 UNITS/1 ML VIAL SQ SCH (22:18)
[2021-07-15] VITALS: BP 147/63
[2021-07-15 04:00] VITALS: BP 130/45
[2021-07-15] MEDS: BLOOD SUGAR DIAGNOSTIC 1 EACH STRIP IN SCH ×4 (06:02→22:26)
--- NOTE | 2021-07-15 06:13 | NUR ---
OPTOMETRIST/PRACTICE OWNER NOTES AWAKE & RESPONSIVE. NOT IN ANY DISTRESS. NO SOB NOTED. DENIES ANY PAIN OR DISCOMFORT AT THIS TIME. ON TELE SR @ 99 WITH 1AVB WITH IV-HL PATENT & INTACT. AM CARE DONE. MONITORED ACCORDINGLY. CALL LIGHT WITHIN REACH. BED IN LOWEST POSITION. SR UP X 3 WITH BED ALARM ON FOR SAFETY. WILL ENDORSE TO NEXT SHIFT.
--- NOTE | 2021-07-15 07:09 | NUR ---
STERILE PROCESS COORDINATOR OPENING NOTES PT IN BED RESTING SEMI-LORA'S, AROUSABLE VIA VOICE OR TOUCH TO A/O X3-4. ABLE TO MAKE NEEDS KNOWN. ON VIA N/C AT 2LPM, TOLERATING WELL WITH NO ACUTE DISTRESS NOTED. IV ACCESS ON RIGHT HAND G#20 INTACT, PATENT AND FLUSHES WELL. ON EXTERNAL UMBRELLA TIPPER HAND WITH CURRENT READING OF NSR WITH IST DEGREE AV BLOCK, HR ON THE 90'S, NO C/O CARDIAC DISTRESS VOICED. ALL NEEDS AND CARE ATTENDED WELL. SAFETY MEASURES MAINTAINED: BED IN LOWEST LOCKED POSITION WITH SIDE-RAILS UP X2, BED ALARM ON AND CALL LIGHT PLACED W/I EASY REACH OF PT. WILL CONTINUE TO MONITOR. Addendum: 07/15/21 at 0718 by LUDIN BLOUNT RN PATIENT FOR HD CATHETER INSERTION TODAY
--- NOTE | 2021-07-15 07:18 | NUR ---
RN NOTES PATIENT FOR HD CATHETER INSERTION TODAY, SUPPLIES AT BEDSIDE.
[2021-07-15] MEDS: PANTOPRAZOLE 40 MG TABLET.DR PO SCH (07:36)
[2021-07-15 07:40] LABS: BASOPHILS % (AUTO) 0.4 % (0.0-2.0); EOSINOPHILS % (AUTO) 5.3 % (0.0-6.0); HEMATOCRIT 37 % (39-51); HEMOGLOBIN 11.9 g/dL (13.5-17.5); LYMPHOCYTES # (AUTO) 0.5 K/uL (0.8-4.8); LYMPHOCYTES % (AUTO) 7.5 % (20.0-44.0); MEAN CORPUSCULAR HGB CONC 32 g/dl (31.0-36.0); MEAN CORPUSCULAR VOLUME 97 fL (80-96); MONOCYTES # (AUTO) 0.4 K/uL (0.1-1.30); MONOCYTES % (AUTO) 6.8 % (2.0-12.0); PLATELET COUNT (AUTO) 215 K/uL (150-450); RED BLOOD CELL COUNT(AUTO) 3.84 MIL/uL (4.5-6.0); WHITE BLOOD COUNT (AUTO) 6.2 K/uL (4.3-11.0)
[2021-07-15 08:06] VITALS: BP 138/93
[2021-07-15 08:17] LABS: CALCIUM, SERUM 8.8 mg/dL (8.5-10.1); MAGNESIUM 2.6 mg/dL (1.8-2.4); PHOSPHORUS 6.7 mg/dL (2.5-4.9); POTASSIUM 5.4 mmol/L (3.5-5.1)
[2021-07-15 08:23] LABS: CREATININE 10.6 mg/dL (0.6-1.3)
--- NOTE | 2021-07-15 08:31 | NUR ---
TEAM DRIVER NOTES RECEIVED REPORT FROM SERENITY IN LAB OF CRITICAL BUN OF 86 AND CREATININE OF 10.57. MESSAGED DR ESE ORDAZ REGARDING LAB VALUES, AWAITING ANY ORDERS.
[2021-07-15] MEDS: SEVELAMER CARBONATE 800 MG TABLET PO SCH ×3 (08:47→16:50)
[2021-07-15] MEDS: CHOLECALCIFEROL 1,000 UNIT TABLET (VIT D3) PO SCH (08:48)
[2021-07-15] MEDS: CARVEDILOL 12.5 MG TABLET PO SCH ×2 (08:49→16:34)
[2021-07-15] MEDS: VIT B CMPLX 3/FA/VIT C/BIOTIN 1 TAB TABLET PO SCH (08:51)
[2021-07-15] MEDS: HEPARIN SODIUM, PORCINE 5000 UNITS/1 ML VIAL SQ SCH ×2 (08:51→21:05)
[2021-07-15] MEDS: QUETIAPINE FUMARATE 25 MG TABLET PO SCH ×2 (08:57→16:50)
[2021-07-15] MEDS ORDERED: CHOLECALCIFEROL 2000 UNIT PO SCH (09:00)
[2021-07-15] MEDS: INSULIN REGULAR, HUMAN 100 UNIT/ML 3 ML VIAL SQ PRN ×3 (12:15→22:43)
--- NOTE | 2021-07-15 12:39 | NUR ---
RN NOTES LEFT FEMORAL HD CATHETER INSERTED BY KATHRIN FONSECA.
[2021-07-15] MEDS: TRAMADOL HCL 50 MG TABLET PO SCH (14:15)
--- NOTE | 2021-07-15 14:15 | NUR ---
EARLY YEARS TEACHER NOTES HD CATHETER WAS PLACED TODAY BY TIME STUDY ENGINEER WITH NO APPARENT COMPLICATIONS. PATIENT NOTED WITH 9/10 LOWER LEG PAIN AT THIS TIME NEAR SITE OF INSERTION, TRAMADOL PAIN MEDICATION REQUESTED FROM MD ORDAZ AND PRESCRIBED. MEDICATION ADMINISTERED PRESCRIBED, WILL CONTINUE TO MONITOR FOR S/S OF PAIN.
[2021-07-15 15:48] VITALS: BP 128/77
--- NOTE | 2021-07-15 16:12 | NUR ---
RN NOTES PT ON HEMODIALYSIS IN PROGRESS AND BP WENT DOWN TO 91/57 [facility], DR GONZALEZ INFORMED BY HD NURSE WITH ORDER TO ADMINISTERED ALBUMIN 25% 100ML. WILL CARRY OUT ORDER
[2021-07-15] MEDS ORDERED: ALBUMIN 25% 25 GM in PREMIX 1 EA IV STA (16:18)
--- NOTE | 2021-07-15 17:26 | NUR ---
RN NOTES HEMODIALYSIS FINISHED AT 1715 WITH ZERO (0) OUTPUT. PT TOLERATED PROCEDURE. V/S S/P HD; BP 128/79, P 79, R 18 AND T 97.5F. WILL CONTINUE TO MONITOR.
--- NOTE | 2021-07-15 19:19 | NUR ---
FURNITURE CLEANER CLOSING NOTES PATIENT LAYING SEMI-FOWLERS IN BED, A/O X 4. ABLE TO MAKE NEEDS KNOWN. ON 02 VIA N/C AT 2LPM, TOLERATING WELL WITH NO ACUTE DISTRESS NOTED. IV ACCESS ON RIGHT HAND G#20 INTACT, PATENT AND FLUSHES WELL. HD CATHETER IN PLACE IN LEFT GROIN. ON EXTERNAL SUPERVISOR KOSHER DIETARY SERVICE WITH CURRENT READING OF NSR WITH 1ST DEGREE AV BLOCK, HR IN 90S, NO C/O CARDIAC DISTRESS VOICED. ALL NEEDS MET. SAFETY MEASURES IN PLACE: BED IN LOWEST LOCKED POSITION WITH SIDE-RAILS UP X2, BED ALARM ON AND CALL LIGHT PLACED W/I EASY REACH OF PT. WILL ENDORSE TO WILDLIFE CONTROL AGENT FOR MARCELO.
--- NOTE | 2021-07-15 19:55 | NUR ---
PRIME BROKER OPENING NOTE PATIENT RECEIVED AWAKE IN BED. A/OX3. PATIENT IS VERY DIFFICULT TO UNDERSTAND D/T PAST HX OF STROKE. NO S/S OF DISTRESS, BREATHING SYMMETRICAL. TELE MONITOR REVEALS CONTROLLED AFIB 97. RH #20 INTACT AND PATENT. SAFETY MEASURES IN PLACE: BED AT LOWEST POSITION, RAILS UP X2, CALL LAMB WITHIN REACH. WILL CONTINUE TO MONITOR.
[2021-07-15 20:00] VITALS: BP 122/71
[2021-07-15] MEDS ORDERED: ACETAMINOPHEN 325 MG TABLET PO PRN (21:00)
[2021-07-15] MEDS: LORAZEPAM 1 MG TABLET PO SCH (21:03)
[2021-07-15] MEDS: ATORVASTATIN 10 MG TABLET PO SCH (21:03)
[2021-07-15] MEDS: ACETAMINOPHEN 325 MG TABLET PO PRN (21:03)
[2021-07-16] VITALS: BP 136/80
[2021-07-16] MEDS: TRAMADOL HCL 50 MG TABLET PO SCH ×3 (01:48→14:00)
[2021-07-16 04:00] VITALS: BP 108/67
--- NOTE | 2021-07-16 06:03 | NUR ---
TAX ANALYST CLOSING NOTE PATIENT AWAKE IN BED. A/OX3. NO S/S OF DISTRESS, BREATHING SYMMETRICAL. TELE MONITOR REVEALS CONTROLLED AFIB 87. RH #20 INTACT AND PATENT. SAFETY MEASURES IN PLACE: BED AT LOWEST POSITION, RAILS UP X2, CALL LAMB WITHIN REACH. WILL CONTINUE TO MONITOR. Addendum: 07/16/21 at 0608 by YANI ESQUEDA RN WILL ENDORSE TO NEXT SHIFT FOR MARCELO.
[2021-07-16] MEDS: ACETAMINOPHEN 325 MG TABLET PO PRN ×2 (06:11→18:26)
[2021-07-16 06:15] LABS: BASOPHILS % (AUTO) 0.8 % (0.0-2.0); HEMATOCRIT 31 % (39-51); HEMOGLOBIN 10.2 g/dL (13.5-17.5); LYMPHOCYTES # (AUTO) 0.6 K/uL (0.8-4.8); LYMPHOCYTES % (AUTO) 20.2 % (20.0-44.0); MEAN CORPUSCULAR HGB CONC 33 g/dl (31.0-36.0); MEAN CORPUSCULAR VOLUME 97 fL (80-96); MONOCYTES # (AUTO) 0.5 K/uL (0.1-1.30); MONOCYTES % (AUTO) 16.5 % (2.0-12.0); NEUTROPHILS # (AUTO) 1.4 K/uL (1.8-8.9); NEUTROPHILS % (AUTO) 44.5 % (43.0-81.0); PLATELET COUNT (AUTO) 160 K/uL (150-450); WHITE BLOOD COUNT (AUTO) 3.1 K/uL (4.3-11.0)
[2021-07-16] MEDS: BLOOD SUGAR DIAGNOSTIC 1 EACH STRIP IN SCH ×4 (06:40→22:01)
[2021-07-16 06:50] LABS: CALCIUM, SERUM 8.3 mg/dL (8.5-10.1); CREATININE 6.7 mg/dL (0.6-1.3); MAGNESIUM 2.3 mg/dL (1.8-2.4); PHOSPHORUS 5.1 mg/dL (2.5-4.9)
--- NOTE | 2021-07-16 07:46 | NUR ---
CLINICAL SCIENCES PROFESSOR OPENING NOTES RECEIVED PATIENT IN BED, AWAKE, A/O X4. PATIENT ON OXYGEN THERAPY AT 4 LPM VIA NASAL CANNULA; BREATHING EVEN AND UNLABORED AT THIS TIME. NO COMPLAINS OF PAIN. TELE MONITOR WITH A CURRENT READING OF A-FIB 105. IV ACCESS ON R HAND G #20 SL PRESENT AND INTACT. L GROIN AV FISTULA. SAFETY PRECAUTIONS IN PLACE; BED IN LOW POSITION AND LOCKED, RAILS UP X2, CALL LIGHT WITHIN REACH. WILL CONTINUE TO MONITOR PATIENT.
[2021-07-16 08:00] VITALS: BP 106/64
[2021-07-16] MEDS: SEVELAMER CARBONATE 800 MG TABLET PO SCH ×3 (08:16→16:27)
[2021-07-16] MEDS: VIT B CMPLX 3/FA/VIT C/BIOTIN 1 TAB TABLET PO SCH (08:16)
[2021-07-16] MEDS: CHOLECALCIFEROL 1,000 UNIT TABLET (VIT D3) PO SCH (08:16)
[2021-07-16] MEDS: PANTOPRAZOLE 40 MG TABLET.DR PO SCH (08:16)
[2021-07-16] MEDS: QUETIAPINE FUMARATE 25 MG TABLET PO SCH ×2 (08:16→16:27)
[2021-07-16] MEDS: CARVEDILOL 12.5 MG TABLET PO SCH ×2 (08:17→16:27)
[2021-07-16] MEDS: HEPARIN SODIUM, PORCINE 5000 UNITS/1 ML VIAL SQ SCH ×2 (08:22→22:00)
[2021-07-16 12:00] VITALS: BP 109/62
[2021-07-16] MEDS: GUAIFENESIN/D-METHORPHAN HB 5 ML UDC PO PRN (15:25)
[2021-07-16 16:00] VITALS: BP 98/49
--- NOTE | 2021-07-16 18:42 | NUR ---
SUPERVISOR BURLING AND JOINING CLOSING NOTES PATIENT REMAINS IN BED, AWAKE, A/O X4. PATIENT ON OXYGEN THERAPY AT 4 LPM VIA NASAL CANNULA; BREATHING EVEN AND UNLABORED DURING SHIFT. NO COMPLAINS OF PAIN. TELE MONITOR WITH A CURRENT READING OF A-FIB. IV ACCESS ON R HAND G #20 SL PRESENT AND INTACT. L GROIN AV FISTULA. HD TO BE DONE TODAY. ALL NEEDS ATTENDED DURING THE DAY. SAFETY PRECAUTIONS IN PLACE; BED IN LOW POSITION AND LOCKED, RAILS UP X2, CALL LIGHT WITHIN REACH. WILL ENDORSE TO MARKETING RESEARCH COORDINATOR NURSE FOR MARCELO.
--- NOTE | 2021-07-16 19:10 | NUR ---
RN NOTES RECEIVED REPORT FROM MORNING RN. PATIENT IN BED A/O 4. WITH OXYGEN INHALATION AT 4 LMP VIA NASAL CANULA TOLERATING WELL SATING 96%. NO DISTRESS NO SOB NOTED AT THIS TIME. WITH IV ACCESS AT R HAND # 20 SL FLUSHES WELL. WITH L UA AV FISTULA. L FEMORAL HEMODIALYSIS CATHETER INTACT NO BLEEDING NOTED AT THIS TIME. ALL SAFETY MEASURES IN PLACE AT ALL TIMES. CALL LIGHT WITHIN REACH. BED ON LOWEST POSITION AND LOCKED. FOR POSSIBLE HD TODAY ORDERED. WILL CLOSELY MONITOR THE PATIENT.
[2021-07-16 20:00] VITALS: BP 93/69
--- NOTE | 2021-07-16 20:10 | NUR ---
RN NOTES HEMODIALYSIS STARTED BY HD NURSE. WILL CONTINUE TO MONITOR THE PATIENT
[2021-07-16] MEDS ORDERED: ALBUMIN 25% 100 ML IV ONE (21:09)
[2021-07-16] MEDS: ALBUMIN 25% 25 GM in PREMIX 1 EA IV PRN (21:37)
--- NOTE | 2021-07-16 22:00 | NUR ---
RN NOTES BS 146 MG/DL 2 UNITS REGULAR INSULIN PER SLIDING SCALE GIVEN ORDERED.
[2021-07-16] MEDS: LORAZEPAM 1 MG TABLET PO SCH (22:01)
[2021-07-16] MEDS: ATORVASTATIN 10 MG TABLET PO SCH (22:01)
[2021-07-16] MEDS: INSULIN REGULAR, HUMAN 100 UNIT/ML 3 ML VIAL SQ PRN (22:02)
--- NOTE | 2021-07-16 22:15 | NUR ---
RN NOTES HEMODIALYSIS COMPLETED. NO UF GOAL PATIENT BP IS LOW EVEN WITH ALBUMIN. WILL MONITOR THE PATIENT POST HD.
[2021-07-17] VITALS: BP_SYST 102; BP_SYST 132; BP_DIAS 59; BP_DIAS 76
[2021-07-17] MEDS: TRAMADOL HCL 50 MG TABLET PO SCH ×2 (02:07→13:24)
[2021-07-17 04:00] VITALS: BP 115/65
--- NOTE | 2021-07-17 06:30 | NUR ---
RN NOTES BS 115 MG/DL NO INSULIN COVERAGE. PATIENT REMAINS STABLE.
[2021-07-17] MEDS: BLOOD SUGAR DIAGNOSTIC 1 EACH STRIP IN SCH ×4 (06:38→22:16)
--- NOTE | 2021-07-17 06:44 | NUR ---
RN NOTES PATIENT REMAINS STABLE NO SIGNIFICANT CHANGES IN HEALTH CONDITION. ALL DUE MEDS GIVEN ORDERED. STILL WITH OXYGEN INHALATION AT 3LPM VIA NASAL CANULA TOLERATING WELL SATING 96%. S/P HEMODIALYSIS LAST NIGHT NO FLUID REMOVES DUE TO LOW BP. ALL NEEDS ATTENDED PROMPTLY. ALL SAFETY MEASURES IN PLACE AT ALL TIMES. BED ON LOWEST POSITION AND LOCKED CALL LIGHT WITHIN REACH. WILL ENDORSED TO MORNING RN FOR MARCELO
--- NOTE | 2021-07-17 07:45 | NUR ---
MUSIC COORDINATOR OPENING NOTES RECEIVED PATIENT IN BED, ASLEEP, EASY TO AROUSE. A/O X4. PATIENT ON OXYGEN THERAPY AT 4 LPM VIA NASAL CANNULA. BREATHING IS EVEN AND UNLABORED. NO COMPLAINTS OF PAIN AT THIS TIME. TELE MONITOR WITH A CURRENT READING OF A-FIB 101. IV ACCESS ON RHAND G#20 SL PRESENT AND INTACT. LEFT GROIN AV FISTULA POSITIVE FOR BRUIT AND THRILL. SAFETY PRECAUTIONS IN PLACE WITH BED LOCKED IN LOW POSITION, SIDE RAILS UP X2, CALL LIGHT IS WITHIN EASY REACH. WILL CONTINUE TO MONITOR PATIENT.
--- NOTE | 2021-07-17 08:09 | NUR ---
RN NOTE DR. GALDAMEZ AND DR. LIRA MADE AWARE THAT PATIENT REMOVED MIDLINE JUST BEFORE FINISHING THE AMIODARONE DRIP. NO NEW ORDERS OBTAINED. Addendum: 07/17/21 at 1857 by RONAN TAMEZ RN ERROR-WRONG PATIENT
[2021-07-17 08:24] VITALS: BP 140/84
[2021-07-17] MEDS: SEVELAMER CARBONATE 800 MG TABLET PO SCH ×3 (08:26→16:52)
[2021-07-17] MEDS: QUETIAPINE FUMARATE 25 MG TABLET PO SCH ×2 (08:26→16:52)
[2021-07-17] MEDS: CHOLECALCIFEROL 1,000 UNIT TABLET (VIT D3) PO SCH (08:26)
[2021-07-17] MEDS: VIT B CMPLX 3/FA/VIT C/BIOTIN 1 TAB TABLET PO SCH (08:26)
[2021-07-17] MEDS: PANTOPRAZOLE 40 MG TABLET.DR PO SCH (08:26)
[2021-07-17] MEDS: CARVEDILOL 12.5 MG TABLET PO SCH ×2 (08:27→16:52)
[2021-07-17] MEDS: HEPARIN SODIUM, PORCINE 5000 UNITS/1 ML VIAL SQ SCH ×2 (08:27→21:00)
[2021-07-17] MEDS: GUAIFENESIN/D-METHORPHAN HB 5 ML UDC PO PRN (08:33)
[2021-07-17 10:01] LABS: BASOPHILS % (AUTO) 0.6 % (0.0-2.0); EOSINOPHILS % (AUTO) 17.1 % (0.0-6.0); HEMATOCRIT 32 % (39-51); HEMOGLOBIN 10.2 g/dL (13.5-17.5); LYMPHOCYTES # (AUTO) 0.4 K/uL (0.8-4.8); LYMPHOCYTES % (AUTO) 12.2 % (20.0-44.0); MEAN CORPUSCULAR HGB CONC 32 g/dl (31.0-36.0); MEAN CORPUSCULAR VOLUME 97 fL (80-96); MONOCYTES # (AUTO) 0.5 K/uL (0.1-1.30); NEUTROPHILS # (AUTO) 1.7 K/uL (1.8-8.9); NEUTROPHILS % (AUTO) 54.1 % (43.0-81.0); PLATELET COUNT (AUTO) 141 K/uL (150-450); RED BLOOD CELL COUNT(AUTO) 3.28 MIL/uL (4.5-6.0); WHITE BLOOD COUNT (AUTO) 3.2 K/uL (4.3-11.0)
[2021-07-17 10:32] LABS: CALCIUM, SERUM 8.5 mg/dL (8.5-10.1); CREATININE 5.9 mg/dL (0.6-1.3); MAGNESIUM 2.3 mg/dL (1.8-2.4); PHOSPHORUS 4.6 mg/dL (2.5-4.9); POTASSIUM 4.2 mmol/L (3.5-5.1)
[2021-07-17] MEDS: INSULIN REGULAR, HUMAN 100 UNIT/ML 3 ML VIAL SQ PRN (11:27)
[2021-07-17 15:19] LABS: BAND % (MANUAL) 1 % (0.0-5.0); EOSINOPHILS % (MANUAL) 25 % (0-4); LYMPHOCYTES % (MANUAL) 4 % (16-48); MONOCYTES % (MANUAL) 13 % (0-11.0); NEUTROPHILS % (MANUAL) 57 (42-76)
[2021-07-17 16:10] VITALS: BP 120/86
[2021-07-17] MEDS: DEXTROSE 50%-WATER 50 ML DISP.SYRIN IV PRN (16:52)
--- NOTE | 2021-07-17 17:00 | NUR ---
RN NOTE PT BS FOUND TO BE 45. RECHECKED AGAIN 45. ADMINISTERED D50 AND ORANGE JUICE PO. NO SIGNS/SYMPTOMS OF HYPOGLYCEMIA. BS RECHECK AFTER 30 MINS 131. MD AND CHARGE NURSE MADE AWARE. PER RIPRAP MAN, PT DID NOT WANT TO EAT.
--- NOTE | 2021-07-17 18:59 | NUR ---
QC TECH CLOSING NOTES PATIENT IN BED, ASLEEP, EASY TO AROUSE. A/O X4. PATIENT ON ROOM AIR, TOLERATING WELL SATURATING AT 97%. BREATHING IS EVEN AND UNLABORED. PT WITH COUGH. NO COMPLAINTS OF PAIN AT THIS TIME. TELE MONITOR WITH A CURRENT READING OF A-FIB 80'S. IV ACCESS ON RHAND G#20 SL PRESENT AND INTACT. LEFT GROIN AV FISTULA POSITIVE FOR BRUIT AND THRILL. PT NPO AFTER MIDNIGHT FOR PROCEDURE TMRW WITH DR. CONTE. SAFETY PRECAUTIONS IN PLACE WITH BED LOCKED IN LOW POSITION, SIDE RAILS UP X2, CALL LIGHT IS WITHIN EASY REACH. WILL ENDORSE CONTINUITY OF CARE TO ONCOMING SHIFT.
--- NOTE | 2021-07-17 19:30 | NUR ---
LABORER TAN HOUSE NOTES AFIB-102 ON TELE MONITOR,ON BED A/O X4,BREATHING NON LABORED,O2 AT 4L/NC IN USED ON AND OFF,WITH RIGHT HAND SALINE LOCK INTACT AND PATENT,WITH ELVER AV SHUNT,LEFT FEMORAL HD CATH FOR TREATMENT.INSTRUCTED NPO POST MIDNIGHT FOR LEFT AV ACCESS THROMBECTOMY,CONSENT ON CHART.RIGHT BKA NOTED CALL LIGHT IN REACH,NEEDS ANTICIPATED.
[2021-07-17 20:00] VITALS: BP 128/79
[2021-07-17] MEDS: LORAZEPAM 1 MG TABLET PO SCH (21:28)
[2021-07-17] MEDS: ATORVASTATIN 10 MG TABLET PO SCH (21:28)
--- NOTE | 2021-07-17 22:00 | NUR ---
MS RN NOTES ACCU-CHECK BLOOD SUGAR CHECK 109,NO INSULIN COVERAGE.SNACKS PROVIDED,NPO AFTER MIDNIGHT.
[2021-07-18] VITALS: BP_SYST 122; BP_SYST 132; BP_DIAS 76; BP_DIAS 78
[2021-07-18] MEDS: GUAIFENESIN/D-METHORPHAN HB 5 ML UDC PO PRN (00:26)
--- NOTE | 2021-07-18 00:26 | NUR ---
INSECTICIDE MIXER NOTES C/O COUGH,ROBITUSSIN DM 5ML PO GIVEN,NPO THEREAFTER.
[2021-07-18] MEDS: TRAMADOL HCL 50 MG TABLET PO SCH ×2 (02:00→13:59)
[2021-07-18 04:00] VITALS: BP 148/98
[2021-07-18] MEDS: BLOOD SUGAR DIAGNOSTIC 1 EACH STRIP IN SCH ×4 (06:03→22:24)
--- NOTE | 2021-07-18 06:15 | NUR ---
ORACLE SOA ARCHITECT NOTES ACCU-CHECK BLOOD SUGAR CHECK 83,NO INSULIN COVERAGE,KEPT NPO FOR PROCEDURE THIS MORNING
--- NOTE | 2021-07-18 06:26 | NUR ---
CONCHE LOADER AND UNLOADER NOTES ON BED A/O X3-4,NO EPISODE OF SOB NOTED,ABLE TO SLEEP INTERMITTENTLY,KEPT NPO FOR THE PROCEDURE THIS MORNING,IN NO ACUTE DISTRESS.
[2021-07-18] MEDS: PANTOPRAZOLE 40 MG TABLET.DR PO SCH (07:30)
--- NOTE | 2021-07-18 07:35 | NUR ---
CYLINDER WORKER OPENING NOTES RECEIVED PATIENT IN BED, ASLEEP, EASY TO AROUSE. A/O X3. PATIENT ON OXYGEN THERAPY AT 4 LPM VIA NASAL CANNULA. BREATHING IS EVEN AND UNLABORED. NO COMPLAINTS OF PAIN AT THIS TIME. TELE MONITOR WITH A CURRENT READING OF A-FIB 110. PT SCHEDULED FOR SURGERY TODAY. IV ACCESS ON RHAND G#20 SL PRESENT AND INTACT. LEFT GROIN AV FISTULA POSITIVE FOR BRUIT AND THRILL. SAFETY PRECAUTIONS IN PLACE WITH BED LOCKED IN LOW POSITION, SIDE RAILS UP X2, CALL LIGHT IS WITHIN EASY REACH. WILL CONTINUE TO MONITOR PATIENT.
[2021-07-18 07:39] LABS: BASOPHILS % (AUTO) 0.9 % (0.0-2.0); EOSINOPHILS % (AUTO) 14.5 % (0.0-6.0); HEMATOCRIT 33 % (39-51); HEMOGLOBIN 10.6 g/dL (13.5-17.5); LYMPHOCYTES # (AUTO) 0.5 K/uL (0.8-4.8); LYMPHOCYTES % (AUTO) 15.2 % (20.0-44.0); MEAN CORPUSCULAR HGB CONC 32 g/dl (31.0-36.0); MEAN CORPUSCULAR VOLUME 97 fL (80-96); MONOCYTES # (AUTO) 0.5 K/uL (0.1-1.30); MONOCYTES % (AUTO) 14.5 % (2.0-12.0); NEUTROPHILS # (AUTO) 1.8 K/uL (1.8-8.9); NEUTROPHILS % (AUTO) 54.9 % (43.0-81.0); PLATELET COUNT (AUTO) 157 K/uL (150-450); RED BLOOD CELL COUNT(AUTO) 3.42 MIL/uL (4.5-6.0); WHITE BLOOD COUNT (AUTO) 3.4 K/uL (4.3-11.0)
[2021-07-18] MEDS: VIT B CMPLX 3/FA/VIT C/BIOTIN 1 TAB TABLET PO SCH (08:03)
[2021-07-18] MEDS: SEVELAMER CARBONATE 800 MG TABLET PO SCH ×3 (08:03→17:05)
[2021-07-18] MEDS: CARVEDILOL 12.5 MG TABLET PO SCH ×2 (08:03→17:06)
[2021-07-18] MEDS: CHOLECALCIFEROL 1,000 UNIT TABLET (VIT D3) PO SCH (08:04)
[2021-07-18] MEDS: QUETIAPINE FUMARATE 25 MG TABLET PO SCH ×2 (08:04→17:05)
[2021-07-18 08:09] VITALS: BP 156/85
[2021-07-18 08:12] LABS: CALCIUM, SERUM 9.4 mg/dL (8.5-10.1); CREATININE 7.3 mg/dL (0.6-1.3); MAGNESIUM 2.4 mg/dL (1.8-2.4); PHOSPHORUS 5.6 mg/dL (2.5-4.9); POTASSIUM 4.7 mmol/L (3.5-5.1)
[2021-07-18 08:25] LABS: THYROID STIMULATING HORMONE 1.574 uIU/mL (0.358-3.74)
[2021-07-18] MEDS: HEPARIN SODIUM, PORCINE 5000 UNITS/1 ML VIAL SQ SCH (08:36)
[2021-07-18] MEDS ORDERED: ANESTHESIA TRAY IN PYXIS 1 EA TRAY MC ONE (08:37)
[2021-07-18] MEDS ORDERED: HEPARIN SODIUM, PORCINE 1,000 UNIT/ML VIAL ONE (08:38)
[2021-07-18] MEDS ORDERED: LIDOCAINE 1% INJ 50 ML MDV IJ ONE ×2 (08:39→10:30)
--- NOTE | 2021-07-18 09:00 | NUR ---
RN NOTE SURGERY HELD D/T PATIENT DECREASE IN BP AND ELEVATED HEART RATE. PT WAS RETURNED BACK TO ROOM AT THIS TIME. ESE ORDAZ NP AT BEDSIDE.
--- NOTE | 2021-07-18 09:30 | NUR ---
RN NOTE PT NOTED WITH SHORTNESS OF BREATH. OXYGEN SATURATION 96% WITH 4L NC. DR. MALIK AT BEDSIDE.
[2021-07-18] MEDS ORDERED: IOHEXOL 240MG/ML 0 ML IV ONE (09:49)
--- NOTE | 2021-07-18 11:38 | NUR ---
RN NOTE CURRENTLY RECEIVING HEMODIALYSIS AT BEDSIDE.
[2021-07-18 12:14] VITALS: BP 114/70
--- NOTE | 2021-07-18 14:36 | NUR ---
PATIENT REFUSED TO HAVE THORACENTESIS TODAY, WILL RE-ATTEMPT TOMORROW
--- NOTE | 2021-07-18 15:00 | NUR ---
RN NOTE PER HD NURSE, OUTPUT 2.5L
[2021-07-18 15:56] VITALS: BP 137/84
[2021-07-18] MEDS: DILTIAZEM HCL 30 MG TABLET PO SCH (17:08)
--- NOTE | 2021-07-18 18:40 | NUR ---
DEICER INSPECTOR ELECTRIC CLOSING NOTES PATIENT IN BED, ASLEEP, EASY TO AROUSE. A/O X4. PT ON 4L NV SATURATING 97%, TOLERATING WELL.BREATHING IS EVEN AND UNLABORED. PT STILL WITH COUGH. HD DONE TODAY WITH 2.5 L OUTPUT. NO COMPLAINTS OF PAIN AT THIS TIME. TELE MONITOR WITH A CURRENT READING OF A-FIB 92. IV ACCESS ON RHAND G#20 SL PATENT AND INTACT. LEFT GROIN AV FISTULA POSITIVE FOR BRUIT AND THRILL. SAFETY PRECAUTIONS IN PLACE WITH BED LOCKED IN LOW POSITION, SIDE RAILS UP X2, CALL LIGHT IS WITHIN EASY REACH. WILL ENDORSE CONTINUITY OF CARE TO ONCOMING SHIFT.
--- NOTE | 2021-07-18 19:10 | NUR ---
TELE/RN OPENING NOTE RECEIVED PATIENT RESTING IN BED. AWAKE, ALERT AND ORIENTED X 4. ABLE TO MAKE NEEDS KNOWN. DENIES PAIN AT THIS TIME. CONTINUES ON O2 4L VIA NC WITH NO S/SX OF RESPIRATORY DISTRESS NOTED. IV ACCESS TO RIGHT HAND #20G INTACT, PATENT AND SALINE LOCKED. LEFT FEMORAL HD CATH IN PLACE. LEFT UPPER ARM AV FISTULA IN PLACE WITH DRESSING C/D/I. CONTINUES ON TELE MONITOR WITH CURRENT READING A-FIB. CALL LIGHT WITHIN REACH. ASPIRATION, FALL AND SAFETY PRECAUTIONS MAINTAINED. WILL CONTINUE TO MONITOR.
[2021-07-18 20:00] VITALS: BP 103/69
[2021-07-18] MEDS: ATORVASTATIN 10 MG TABLET PO SCH (22:24)
[2021-07-18] MEDS: LORAZEPAM 1 MG TABLET PO SCH (22:24)
[2021-07-19] VITALS: BP 125/96
[2021-07-19] MEDS: DILTIAZEM HCL 30 MG TABLET PO SCH ×3 (00:50→14:59)
[2021-07-19] MEDS: TRAMADOL HCL 50 MG TABLET PO SCH ×2 (01:02→13:15)
[2021-07-19 04:00] VITALS: BP 126/45
--- NOTE | 2021-07-19 06:00 | NUR ---
TELE/RN CLOSING NOTE PATIENT CURRENTLY SLEEPING IN BED. ALERT AND ORIENTED X 4. ABLE TO MAKE NEEDS KNOWN. DENIES PAIN AT THIS TIME. CONTINUES ON O2 2L VIA NC WITH NO S/SX OF RESPIRATORY DISTRESS NOTED. IV ACCESS TO RIGHT HAND #20G INTACT, PATENT AND SALINE LOCKED. LEFT FEMORAL HD CATH IN PLACE. LEFT UPPER ARM AV FISTULA IN PLACE WITH DRESSING C/D/I. CONTINUES ON TELE MONITOR WITH CURRENT READING A-FIB. CALL LIGHT WITHIN REACH. ASPIRATION, FALL AND SAFETY PRECAUTIONS MAINTAINED. WILL ENDORSE PLAN OF CARE TO ONCOMING SHIFT.
[2021-07-19] MEDS: BLOOD SUGAR DIAGNOSTIC 1 EACH STRIP IN SCH ×4 (06:07→21:19)
--- NOTE | 2021-07-19 06:10 | NUR ---
TELE/RN NOTE PATIENT REFUSED TO CHANGE THE LINEN THIS AM. TOLD THE COFFEE TASTER TO GET OUT, DOES NOT WANT TO BE BOTHERED. INCREASED AGITATION NOTED. ENDORSED TO AM SHIFT RN.
[2021-07-19 06:56] LABS: BASOPHILS % (AUTO) 0.9 % (0.0-2.0); EOSINOPHILS % (AUTO) 19.1 % (0.0-6.0); HEMATOCRIT 32 % (39-51); HEMOGLOBIN 10.2 g/dL (13.5-17.5); LYMPHOCYTES # (AUTO) 0.7 K/uL (0.8-4.8); LYMPHOCYTES % (AUTO) 18.7 % (20.0-44.0); MEAN CORPUSCULAR HGB CONC 32 g/dl (31.0-36.0); MEAN CORPUSCULAR VOLUME 97 fL (80-96); MONOCYTES # (AUTO) 0.5 K/uL (0.1-1.30); MONOCYTES % (AUTO) 14.6 % (2.0-12.0); NEUTROPHILS # (AUTO) 1.7 K/uL (1.8-8.9); NEUTROPHILS % (AUTO) 46.7 % (43.0-81.0); PLATELET COUNT (AUTO) 133 K/uL (150-450); RED BLOOD CELL COUNT(AUTO) 3.29 MIL/uL (4.5-6.0); WHITE BLOOD COUNT (AUTO) 3.6 K/uL (4.3-11.0)
[2021-07-19 07:08] LABS: CALCIUM, SERUM 8.9 mg/dL (8.5-10.1); MAGNESIUM 2.2 mg/dL (1.8-2.4); PHOSPHORUS 4.8 mg/dL (2.5-4.9); POTASSIUM 4.1 mmol/L (3.5-5.1)
--- NOTE | 2021-07-19 07:30 | NUR ---
RN OPENING NOTES Patient seen comfortably lying in bed, no SOB, no apparent distress noted, breathing even and unlabored, denies any pain or discomfort at this time, no grimacing. Call light left within reach, safety precautions in place, brakes locked, side rails up X 2, will monitor closely for any changes.
[2021-07-19 08:00] VITALS: BP 122/69
[2021-07-19] MEDS: VIT B CMPLX 3/FA/VIT C/BIOTIN 1 TAB TABLET PO SCH (08:14)
[2021-07-19] MEDS: PANTOPRAZOLE 40 MG TABLET.DR PO SCH (08:14)
[2021-07-19] MEDS: CARVEDILOL 12.5 MG TABLET PO SCH ×2 (08:14→17:36)
[2021-07-19] MEDS: SEVELAMER CARBONATE 800 MG TABLET PO SCH ×3 (08:14→17:37)
[2021-07-19] MEDS: QUETIAPINE FUMARATE 25 MG TABLET PO SCH ×2 (08:14→17:37)
[2021-07-19] MEDS: CHOLECALCIFEROL 1,000 UNIT TABLET (VIT D3) PO SCH (08:14)
--- NOTE | 2021-07-19 10:00 | NUR ---
Patient S/P ultrasound guided thoracentesis of right lung with 1660cc serous fluid output, site covered with dry dressing, intact and patent, no bleeding noted, no s/s of infection, no unusual drainage, no unusual odor, denies any discomfort or pain,patient tolerated procedure well, no apparent distress noted, no shortness of breath, afebrile at this time.
[2021-07-19] MEDS: INSULIN REGULAR, HUMAN 100 UNIT/ML 3 ML VIAL SQ PRN ×2 (12:13→21:29)
[2021-07-19 16:00] VITALS: BP 111/71
--- NOTE | 2021-07-19 18:23 | NUR ---
RN CLOSING NOTES Patient lying in bed, alert, oriented X 4, no apparent distress noted, no shortness of breath, breathing even and unlabored, denies any pain or discomfort, no grimacing, and remained afebrile, no dizziness, no palpitations, no chest pain during shift. Insulin given per sliding scale per MD order, no s/s of hypo or hyperglycemia, no tremors, no change in level of consciousness. All medications given per MD order, tolerating well. No nausea, no vomiting, abdominal bowel sound present in all quadrant, no grimacing when abdomen palpated. Aspiration precautions observed at all times, kept head of bed elevated, all needs anticipated, kept clean and dry, safety precautions in place, side rails up X 2, brakes locked, call light left within reach, will endorse to next shift for continuity of care.
--- NOTE | 2021-07-19 19:11 | NUR ---
RN OPENING NOTES Patient lying in bed, alert, oriented X 4, no apparent distress noted, no shortness of breath, breathing even and unlabored, denies any pain or discomfort, no grimacing, and remained afebrile, no dizziness, no palpitations, no chest pain at this time. no s/s of hypo or hyperglycemia, no tremors, no change in level of consciousness.No nausea, no vomiting, abdominal bowel sound present in all quadrant, no grimacing when abdomen palpated. Aspiration precautions observed at all times, kept head of bed elevated, all needs anticipated, kept clean and dry, safety precautions in place, side rails up X 2, brakes locked, call light left within reach, will continue to monitor.
[2021-07-19 20:00] VITALS: BP 140/73
--- NOTE | 2021-07-19 20:47 | NUR ---
WHEEL ALIGNMENT TECHNICIAN NOTES PT REFUSING VS AT THIS TIME RISK AND BENEFITS EXPLAINED X3 PT REFUSED X3. PT STATED " I ALREADY TOLD YOU I DONT WANT IT RIGHT NOW LEAVE ME ALONE!" WILL TRY AGAIN LATER. WILL CONTINUE TO MONITOR.
[2021-07-19] MEDS: ATORVASTATIN 10 MG TABLET PO SCH (21:19)
[2021-07-19] MEDS: LORAZEPAM 1 MG TABLET PO SCH (21:19)
--- NOTE | 2021-07-19 22:11 | NUR ---
SOCIAL ORGANIZATION PROFESSOR NOTES PT PULLED OUT IV CATHETER INTACT NO BLEEDING OR DISCOLORATION AT SITE NEW IV ACCESS RIGHT FOREARM 20G INTACT SECURED AND FLUSHING WELL. PT TOLERATED WELL. WILL CONTINUE TO MONITOR.
[2021-07-20] VITALS: BP 100/56
[2021-07-20] MEDS: TRAMADOL HCL 50 MG TABLET PO SCH ×2 (01:27→14:48)
[2021-07-20 04:00] VITALS: BP 116/45
[2021-07-20 06:41] LABS: BASOPHILS % (AUTO) 0.7 % (0.0-2.0); EOSINOPHILS % (AUTO) 16.8 % (0.0-6.0); HEMATOCRIT 35 % (39-51); HEMOGLOBIN 11.1 g/dL (13.5-17.5); LYMPHOCYTES # (AUTO) 0.6 K/uL (0.8-4.8); LYMPHOCYTES % (AUTO) 14.7 % (20.0-44.0); MEAN CORPUSCULAR HGB CONC 32 g/dl (31.0-36.0); MEAN CORPUSCULAR VOLUME 97 fL (80-96); MONOCYTES # (AUTO) 0.6 K/uL (0.1-1.30); MONOCYTES % (AUTO) 13.9 % (2.0-12.0); NEUTROPHILS # (AUTO) 2.2 K/uL (1.8-8.9); NEUTROPHILS % (AUTO) 53.9 % (43.0-81.0); PLATELET COUNT (AUTO) 128 K/uL (150-450); RED BLOOD CELL COUNT(AUTO) 3.58 MIL/uL (4.5-6.0); WHITE BLOOD COUNT (AUTO) 4.1 K/uL (4.3-11.0)
--- NOTE | 2021-07-20 06:55 | NUR ---
RN CLOSING NOTES Patient lying in bed, alert, oriented X 4, no apparent distress noted, no shortness of breath, breathing even and unlabored, denies any pain or discomfort, no grimacing, and remained afebrile, no dizziness, no palpitations, no chest pain at this time. no s/s of hypo or hyperglycemia, no tremors, no change in level of consciousness.No nausea, no vomiting, abdominal bowel sound present in all quadrant, no grimacing when abdomen palpated. Aspiration precautions observed at all times, kept head of bed elevated, all needs anticipated, kept clean and dry, safety precautions in place, side rails up X 2, brakes locked, call light left within reach, pt refused lab draw this morning label stitcher will try again later will endorse care to day shift nurse.
[2021-07-20] MEDS: PANTOPRAZOLE 40 MG TABLET.DR PO SCH (07:30)
--- NOTE | 2021-07-20 07:30 | NUR ---
BILLING ADMINISTRATOR NOTES PT IN BED, AWAKE, ALERT AND ORIENTED, NO COMPLAINT AT THIS TIME, CALL LIGHT PLACED WITHIN REACH, NEEDS ATTENDED.
[2021-07-20 07:55] LABS: CREATININE 7.4 mg/dL (0.6-1.3); POTASSIUM 4.6 mmol/L (3.5-5.1)
[2021-07-20 08:00] VITALS: BP 115/75
[2021-07-20] MEDS: CARVEDILOL 12.5 MG TABLET PO SCH ×2 (09:00→16:28)
[2021-07-20] MEDS: DILTIAZEM HCL CD 120 MG PO SCH (09:00)
[2021-07-20] MEDS ORDERED: DILTIAZEM HCL CD 240 MG PO SCH (09:00)
[2021-07-20] MEDS: BLOOD SUGAR DIAGNOSTIC 1 EACH STRIP IN SCH ×4 (09:27→21:58)
[2021-07-20] MEDS: SEVELAMER CARBONATE 800 MG TABLET PO SCH ×3 (09:29→16:29)
[2021-07-20] MEDS: VIT B CMPLX 3/FA/VIT C/BIOTIN 1 TAB TABLET PO SCH (09:29)
[2021-07-20] MEDS: QUETIAPINE FUMARATE 25 MG TABLET PO SCH ×2 (09:29→16:29)
[2021-07-20] MEDS: CHOLECALCIFEROL 1,000 UNIT TABLET (VIT D3) PO SCH (09:29)
[2021-07-20] MEDS: INSULIN REGULAR, HUMAN 100 UNIT/ML 3 ML VIAL SQ PRN ×2 (11:44→21:58)
[2021-07-20 16:00] VITALS: BP 129/81
[2021-07-20] MEDS: APIXABAN 5 MG TABLET PO SCH (18:38)
--- NOTE | 2021-07-20 18:50 | NUR ---
WINDOW DRAPER NOTES PT IN BED, BEING ASSISTED WITH DINNER, WITH GOOD APPETITE, BS CHECKED BEFORE DINNER, 56, CRANBERRY JUICE GIVEN, RECHECKED AFTER DIINER, BS 104, PT STILL EATING AT THIS TIME, PM MEDS GIVEN, FOR HD TONIGHT, ALL NEEDS ATTENDED.
--- NOTE | 2021-07-20 19:37 | NUR ---
RN OPENING NOTES Patient lying in bed, alert, oriented X 4, no apparent distress noted, no shortness of breath, breathing even and unlabored, denies any pain or discomfort, no grimacing, and remained afebrile, no dizziness, no palpitations, no chest pain at this time. no s/s of hypo or hyperglycemia, no tremors, no change in level of consciousness.No nausea, no vomiting, abdominal bowel sound present in all quadrant, no grimacing when abdomen palpated. Aspiration precautions observed at all times, kept head of bed elevated, all needs anticipated, kept clean and dry, safety precautions in place, side rails up X 2, brakes locked, call light left within reach, pt to have dialysis this evening. will continue to monitor pt .
[2021-07-20 20:00] VITALS: BP 103/48
--- NOTE | 2021-07-20 21:20 | NUR ---
STRATEGY EXECUTION CONSULTANT NOTES PT CURRENTLY HAVING DIALYSIS.
[2021-07-20] MEDS: LORAZEPAM 1 MG TABLET PO SCH (22:00)
[2021-07-20] MEDS: ATORVASTATIN 10 MG TABLET PO SCH (22:00)
--- NOTE | 2021-07-20 22:39 | NUR ---
JAVA PERFORMANCE ENGINEER NOTES MEDICATION NOT ADMINISTERED PT JUST STARTED DIALYSIS. WILL CONTINUE TO MONITOR.
--- NOTE | 2021-07-20 23:35 | NUR ---
ASSEMBLER FISHING FLOATS NOTES PT DONE WITH DIALYSIS TOTAL OUTPUT 2L. WILL CONTINUE TO MONITOR.
[2021-07-21] VITALS: BP 98/55
[2021-07-21] MEDS: TRAMADOL HCL 50 MG TABLET PO SCH ×2 (02:00→14:05)
[2021-07-21] MEDS: BLOOD SUGAR DIAGNOSTIC 1 EACH STRIP IN SCH ×4 (06:39→22:19)
--- NOTE | 2021-07-21 06:57 | NUR ---
RN CLOSING NOTES Patient lying in bed, alert, oriented X 4, no apparent distress noted, no shortness of breath, breathing even and unlabored, denies any pain or discomfort, no grimacing, and remained afebrile, no dizziness, no palpitations, no chest pain at this time. no s/s of hypo or hyperglycemia, no tremors, no change in level of consciousness.No nausea, no vomiting, abdominal bowel sound present in all quadrant, no grimacing when abdomen palpated. Aspiration precautions observed at all times, kept head of bed elevated, all needs anticipated, kept clean and dry, safety precautions in place, side rails up X 2, brakes locked, call light left within reach, pt to have dialysis this evening. will endorse care to day shift nurse.
--- NOTE | 2021-07-21 07:33 | NUR ---
NON DESTRUCTIVE TESTER OPENING NOTES RECEIVED PATIENT AWAKE IN BED IN NO ACUTE SIGNS OF DISTRESS. ALERT AND ORIENTED X 4. ABLE TO MAKE NEEDS KNOWN, DENIES PAIN OR ANY DISCOMFORTS AT THIS TIME. ON O2 2L VIA N/C WITH NO S/SX OF RESPIRATORY DISTRESS NOTED. IV ACCESS TO RFA #20G INTACT, PATENT AND SALINE LOCKED. LEFT FEMORAL HD CATH IN PLACE. LEFT UPPER ARM AV FISTULA IN PLACE WITH DRESSING C/D/I AND WITH [POSITIVE SHRILL AND BRUIT NOTED. ON TELE-MONITOR WITH CURRENT READING A-FIB CONTROLLED, HR ON THE 90'S, NO C/O CARDIAC DISTRESS VOICED AT THIS TIME. SAFETY MEASURES IN PLACED: BED IN LOWEST LOCKED POSITION WITH SR-UP X2. CALL LIGHT WITHIN REACH. WILL CONTINUE TO MONITOR PT ACCORDINGLY..
[2021-07-21 07:46] LABS: BASOPHILS % (AUTO) 0.5 % (0.0-2.0); EOSINOPHILS % (AUTO) 15.7 % (0.0-6.0); HEMATOCRIT 33 % (39-51); HEMOGLOBIN 10.4 g/dL (13.5-17.5); LYMPHOCYTES # (AUTO) 0.5 K/uL (0.8-4.8); LYMPHOCYTES % (AUTO) 17.2 % (20.0-44.0); MEAN CORPUSCULAR HGB CONC 32 g/dl (31.0-36.0); MEAN CORPUSCULAR VOLUME 97 fL (80-96); MONOCYTES % (AUTO) 13.4 % (2.0-12.0); NEUTROPHILS # (AUTO) 1.6 K/uL (1.8-8.9); NEUTROPHILS % (AUTO) 53.2 % (43.0-81.0); PLATELET COUNT (AUTO) 105 K/uL (150-450); RED BLOOD CELL COUNT(AUTO) 3.38 MIL/uL (4.5-6.0); WHITE BLOOD COUNT (AUTO) 2.9 K/uL (4.3-11.0)
[2021-07-21 07:47] LABS: MONOCYTES # (AUTO) 0.4 K/uL (0.1-1.30)
[2021-07-21 08:00] VITALS: BP 127/69
[2021-07-21 08:08] LABS: CALCIUM, SERUM 8.7 mg/dL (8.5-10.1); CREATININE 6.3 mg/dL (0.6-1.3); POTASSIUM 4.7 mmol/L (3.5-5.1)
[2021-07-21] MEDS: QUETIAPINE FUMARATE 25 MG TABLET PO SCH ×2 (08:44→16:36)
[2021-07-21] MEDS: VIT B CMPLX 3/FA/VIT C/BIOTIN 1 TAB TABLET PO SCH (08:44)
[2021-07-21] MEDS: DILTIAZEM HCL CD 120 MG PO SCH (08:45)
[2021-07-21] MEDS: APIXABAN 5 MG TABLET PO SCH (08:46)
[2021-07-21] MEDS: CARVEDILOL 12.5 MG TABLET PO SCH ×2 (08:46→16:34)
[2021-07-21] MEDS: CHOLECALCIFEROL 1,000 UNIT TABLET (VIT D3) PO SCH (08:47)
[2021-07-21] MEDS: SEVELAMER CARBONATE 800 MG TABLET PO SCH ×3 (08:47→16:33)
[2021-07-21] MEDS: PANTOPRAZOLE 40 MG TABLET.DR PO SCH (08:47)
--- NOTE | 2021-07-21 11:22 | NUR ---
WOUND CARE CONSULT: PT PRESENTS WITH RT BELOW KNEE AMPUTATION STUMP AND SCARRING TO LEFT LEG, PRESENT ON ADMISSION. RECOMMENDATIONS MADE FOR SKIN PROTECTION. DISCUSSED WITH NURSING STAFF. WILL SEE PRN. UNDERWOOD IN AGREEMENT WITH PLAN OF CARE.
[2021-07-21] MEDS: INSULIN REGULAR, HUMAN 100 UNIT/ML 3 ML VIAL SQ PRN ×2 (11:36→22:19)
[2021-07-21 12:00] VITALS: BP 100/67
--- NOTE | 2021-07-21 13:21 | NUR ---
RN NOTES PT FOR U/S GUIDED THORACENTESIS OF RIGHT LUNG, VERBAL CONSENT GIVEN BY PT. CALLED U/S TECH LOW AND STATED THAT THEY COULDN'T DO THE THORACENTESIS TODAY BECAUSE PT RECEIVED ELIQUIS THIS MORNING AND SHE SAID THAT PT NEEDS TO BE OFF OF BLOOD THINNERS FOR 48HRS FOR PROCEDURE TO BE DONE. SHE SAID THAT THEY WILL DO IT ON SUNDAY.
[2021-07-21 16:09] VITALS: BP 94/65
--- NOTE | 2021-07-21 18:36 | NUR ---
MS RN CLOSING NOTES PATIENT IN BED AWAKE AND WATCHING TV AT THIS TIME. A/O X 4, ABLE TO MAKE NEEDS KNOWN. ON O2 VIA N/C @ 2LPM, TOLERATING WELL WITH NO ACUTE RESPIRATORY DISTRESS NOTED. IV SL ON RFA #20G INTACT, PATENT AND FLUSHES WELL. PT WITH LEFT FEMORAL HD CATHETER IN PLACE WITH DRESSING C/D/I. PT ALSO HAS LEFT UPPER ARM AV FISTULA WITH POSITIVE SHRILL AND BRUIT NOTED. ALL NEEDS AND CARE ATTENDED WELL. SAFETY MEASURES IN PLACED: BED LOCKED AND IN LOWEST POSITION, SIDE-RAILS UP X2, CALL LIGHT AND TRAY TABLE WITHIN EASY REACH OF PT. WILL ENDORSE MARCELO TO MANAGER AUDIO NURSE.
--- NOTE | 2021-07-21 19:50 | NUR ---
MS RN OPENING NOTE RECEIVED PATIENT IN BED WATCHING TELEVISION. A/OX4. NO S/S OF APPARENT DISTRESS ON 2LPM OF O2 VIA NC. NO C/O PAIN AT THIS TIME. RIGHT ABOVE THE KNEE AMPUTATION. NO FLUIDS RUNNING AT THIS TIME. SAFETY IN PLACE . WILL CONTINUE WITH PATIENT PLAN OF CARE.
[2021-07-21 20:00] VITALS: BP 97/50
[2021-07-21] MEDS: ATORVASTATIN 10 MG TABLET PO SCH (22:06)
[2021-07-21] MEDS: LORAZEPAM 1 MG TABLET PO SCH (22:06)
--- NOTE | 2021-07-21 22:20 | NUR ---
MS RN NOTE BLOOD SUGAR 121. NO COVERAGE NEEDED.
[2021-07-22] MEDS: TRAMADOL HCL 50 MG TABLET PO SCH ×2 (02:00→15:07)
[2021-07-22] MEDS: INSULIN REGULAR, HUMAN 100 UNIT/ML 3 ML VIAL SQ PRN ×4 (06:31→22:20)
[2021-07-22] MEDS: BLOOD SUGAR DIAGNOSTIC 1 EACH STRIP IN SCH ×4 (06:31→22:16)
--- NOTE | 2021-07-22 06:32 | NUR ---
MS RN NOTE- NON-ADMIN BLOOD SUGAR 118. NO COVERAGE NEEDED.
--- NOTE | 2021-07-22 06:42 | NUR ---
MS RN CLOSING PATIENT SITTING IN BED WATCHING TELEVISION. A/OX3-4. NO S/S OF APPARENT DISTRESS ON 2LPM OF O2 VIA NC-- ON AND OFF. DENIES PAIN AT THIS TIME. ALL NEEDS ATTENDED. ALL SCHEDULED MEDICATIONS ADMINISTERED. NO FLUIDS RUNNING AT THIS TIME. SAFETY KEPT IN PLACE THE WHOLE SHIFT. WILL ENDORSE TO MORNING SHIFT RN FOR CONTINUITY OF CARE.
[2021-07-22 06:56] LABS: BASOPHILS % (AUTO) 0.6 % (0.0-2.0); EOSINOPHILS % (AUTO) 14.6 % (0.0-6.0); HEMATOCRIT 35 % (39-51); HEMOGLOBIN 11.1 g/dL (13.5-17.5); LYMPHOCYTES # (AUTO) 0.6 K/uL (0.8-4.8); LYMPHOCYTES % (AUTO) 13.2 % (20.0-44.0); MEAN CORPUSCULAR HGB CONC 32 g/dl (31.0-36.0); MEAN CORPUSCULAR VOLUME 98 fL (80-96); MONOCYTES # (AUTO) 0.6 K/uL (0.1-1.30); NEUTROPHILS # (AUTO) 2.6 K/uL (1.8-8.9); NEUTROPHILS % (AUTO) 57.6 % (43.0-81.0); PLATELET COUNT (AUTO) 120 K/uL (150-450); WHITE BLOOD COUNT (AUTO) 4.5 K/uL (4.3-11.0)
--- NOTE | 2021-07-22 07:19 | NUR ---
RN OPENING NOTE- PATIENT IN BED ASLEEP, EASILY AWAKENED. A/OX4. NO S/S OF APPARENT DISTRESS ON 2LPM OF O2 VIA NC. NO C/O PAIN AT THIS TIME. RIGHT ABOVE THE KNEE AMPUTATION. PT HAS TaleSpringO Frazr RUNNING AT THIS TIME. BED LOCKED, SIDE RAILS RAISED, CALL LIGHT IN REACH . WILL CONTINUE WITH PATIENT PLAN OF CARE.
[2021-07-22 07:34] LABS: POTASSIUM 5.3 mmol/L (3.5-5.1)
[2021-07-22 07:41] LABS: CREATININE 7.6 mg/dL (0.6-1.3)
[2021-07-22 07:50] LABS: CALCIUM, SERUM 8.7 mg/dL (8.5-10.1)
[2021-07-22] MEDS: PANTOPRAZOLE 40 MG TABLET.DR PO SCH (08:28)
[2021-07-22] MEDS: CHOLECALCIFEROL 1,000 UNIT TABLET (VIT D3) PO SCH (08:29)
[2021-07-22] MEDS: VIT B CMPLX 3/FA/VIT C/BIOTIN 1 TAB TABLET PO SCH (08:30)
[2021-07-22] MEDS: CARVEDILOL 12.5 MG TABLET PO SCH ×2 (08:30→16:41)
[2021-07-22] MEDS: QUETIAPINE FUMARATE 25 MG TABLET PO SCH ×2 (08:31→16:41)
[2021-07-22] MEDS: DILTIAZEM HCL CD 120 MG PO SCH (08:31)
[2021-07-22] MEDS: SEVELAMER CARBONATE 800 MG TABLET PO SCH ×3 (08:31→16:41)
[2021-07-22 08:32] VITALS: BP 130/74
[2021-07-22] MEDS: PIPERACILLIN /TAZOBACTAM 2.25 G in IV D5W 50 ML IV SCH ×3 (12:00→17:25)
--- NOTE | 2021-07-22 12:45 | NUR ---
RN NOTE-PT REFUSING THIS RNS CARE. ASSISTANCE AND HELP. YELLING AT STAFF. PROFANE AND OPPOSITIONAL. ATTEMPTED TO REASSURE AND ASSIST. TOLD TO "GET OUT OF THIS ROOM. "
--- NOTE | 2021-07-22 13:35 | NUR ---
RN NOTE- SUBSCRIPTION CLERK REPORTS PT YELLING AND CURSING AT HER WHEN TRYING TO HELP. PT STASTES HE NEEDS HELP EATING BUT WHEN SUBSCRIPTION CLERK TRIES, PT BECOMES ANGRY AND ORDERS SUBSCRIPTION CLERK OUT OF ROOM. THEN PT HITS CALL BUTTON REPEATEDLY. ATTEMPTED TO INTERVENE AND FIND MIDDLE GROUND W PT TO FACILITATE NEEDS. PT REFUSED AND ORDERED RN OUT OF ROOM.
--- NOTE | 2021-07-22 13:55 | NUR ---
SS Consult: SS consult for living alone. Pt. Is a 10-haim-jqu-Black male presenting with dialysis fistula complication. Pt. demonstrates adequate insight to the reason for hospitalization. Pt. was oriented x3, alert, and was not cooperative. During interview, pt. was capable of following directions, made appropriate eye-contact, and appeared groomed. Pt.s speech was at a normal rate. Pt.s mood was irritable and angry. Pt. presented with an aggressive tone. SW explored pt.s hx of mental health and substance abuse. Pt. reported no hx of mental health, substance abuse, suicidal or homicidal ideation. Pt. denies auditory hallucinations, visual hallucinations, paranoia, or delusions. SW explored pt.s living situation. Per pt., he does not live alone, and he resides at [facility] [[phone], pt. could not verify address]. Per CM note, pt. is a resident at facility. ARCHANA explored pt.s DMEs. Per pt., he is not ambulatory and uses a wheelchair. Pt. stated that he feels supportive by his caregiver at the facility. Plan: SW provided available resources and pt. accepted. SW left resources at bedside. Once discharge, per pt., he will return to [facility]. Resources Provided: ABUSE PREVENTION: ELDER ABUSE HOTLINE (01/01) ADULT PROTECTIVE SERVICES HOTLINE LONG-TERM CARE [facility] Region AREA ON AGING (HOTLINE) ADULT DAY HEALTH CARE CARE CENTERS: Private pay or [facility] funded adult day care [place] [facility] , [facility] , [facility] , [place] [facility] , [facility] Adult Day Health Care , [facility] Adult Daycare Center , [facility] , [place] [facility] Adult [place] , [place] ALZHEIMERS DISEASE/DEMENTIA: Alzheimers Association Helpline [facility] Chapter www.alz.org/[place] [facility] Department of Aging www.lacity.org Family Caregiver [place] www.caregiver.org [place] Caregiver Resources Center/Family Support www.[facility].org CANCER RESOURCES: South African Cancer Society www.cancer.org Cancer Support Community www.CancerSupportVvsb.org: CancerCare www.cancercare.org [facility] Cancer Support [place] www.[facility].org [facility] HEALTH ASSOCIATIONS: AARP www.aarp.org ALS Association (ask for Debra) www.als.org South African Diabetes Association www.diabetes.org South African Heart Association www.heart.org South African Lung Association www.lungusa.org South African Parkinson Disease Association www.apdaparkinson.org South African Sal[place] , www.redcross.org Arthritis Foundation www.arthritis.org Crohns & Colitis Foundation of South African www.ccfa.org/chapters/salo National Multiple Sclerosis Society www.nationalmssociety.org Myasthenia Gravis Foundation www.myasthenia-ca.org National Stroke Association www.stroke.org CONSERVATORSHIP & GUARDIANSHIP: AARP Elenita Pierre Legal Services Center for Health Care Rights Eldercare Information and Referral Sales Assistant Entertainment And Media Foundation [facility]: [facility] Bar Referral Service [facility] Neighborhood Legal Services Office of the Public Guardian Palms EYESIGHT DISORDER RESOURCES: South African Macular Degeneration Foundation [facility] www.[facility].org GRIEF AND BEREAVEMENT RESOURCES: The [facility] , [facility] THE HOPE Connection , [facility] Bereavement Center , [place] HEARING DISORDER RESOURCES: [place] Telephone Access Program Deaf and Disabled Telecommunications Program www.ddtp.[facility].ca.gov HearRx Hearing Centers ([place]) Better Hearing Systems , [place] GLAD ([facility] Agency on Deafness) V/ TTY; Intake Manager , [facility] Hearing [facility] -low income hearing aid assistance www.Fonemeshuniversity hospitals geauga medical centerringfoundation.org [place] [facility] , [place]y HELP AT HOME CAREGIVER SUPPORT: In Home Support Services (Must have Medi-Tien to be eligible) *Ask for a list of agencies that provide services to assist with care in the home. Local Senior Centers also have listings of care providers. HOME SAFETY MODIFICATIONS AND EQUIPMENT: Senior centers have additional referrals. [place] Housing and Community Investment Dept. Handyworker Program (low income) or Visit http://hcidla.lacity.org/vfn-mcgjyc-ds for more information National Seating and Mobility and/or ; Forever Active www.foreverC9 Inc..MOG Stay Home Safe www.Adviously Inc..MOG LIFE ALERT RESPONSE SYSTEM: Game Plan Holdings Services 696-448-1227 www. PEX Card.MOG Life Alert 722-685-0313 www.[place] Iron Oxides (PIROX) Life Station 790-207-9581 www.Hytle.MOG Safe Return 246-554-1412 www.Sidestage.or/safereturn Cell Phones for Seniors www.Centrality Communications MEALS AND FOOD PROGRAMS: Magnus Meals on Wheels [phone] [place] Meals on Wheels [phone] [facility] [phone] [place] to the Homebound [phone] [place] to the Homebound [phone] Api Healthcare to the Homebound [phone] [facility] to the Homebound [phone] [facility] [phone] [facility] [phone] ONE Generation [phone] [facility] [phone] [facility] [phone] Meals on Wheels [phone] For all ages: $6.85/ meal w side. Delivered M-F from 10 am-1pm. Application and payment is done over the phone. Frozen meals available for weekends. Emergency Food [facility] [phone] [facility] Veneer Sample Maker [phone] [facility] [phone] [facility]- Brown bag lunches [phone] [facility] [phone] MEAL/GROCERY DELIVERY PROGRAMS: [facility] Gourmet Meals [phone]- [facility] [phone]- [facility] Magic Kitchen [phone] Moms Meals [phone] (ask Lam for Discount Select grocery stores may provide delivery. MEDICAL INSURANCE SUPPORT SERVICES: Center for Health Care Rights [phone] Health Insurance Counseling/Advocacy Programs (HICAP)-Must have Medicare. Offers counseling for Medi-Tien eligibility [phone] Department of Public Veneer Sample Maker [phone] www.lifepoint hospitals.ca.gov Medicare 073-820-7423 www.socialsecurity.org Social Security [phone] SENIOR ACTIVITY PROGRAMS: *Contact a local senior center, adult school, recreation facility or community college for education, fitness, recreation, and social programs. Aquatic Therapy and Adapted Exercise programs through [facility] [phone] Encore at [facility] [phone] www.[facility]/encore U- Senior Friends [phone] [place] Senior Programs [phone] www.oasisnet.org Suddenly 65 www..com SENIOR CENTERS: [facility] [phone] [facility] [phone] [facility] [phone] [facility] [phone] [facility] [phone] [facility] [phone] [facility] [phone] [facility] [phone] One [facility] [phone] [facility] [phone] [facility] [phone] [facility] [phone] [phone] TRANSPORTATION: Local [facility] may have applications for transportation programs and additional resources. ACCESS Services [phone] Transportation for seniors and disabled persons 7 days a week requiring 254 hr. advance reservation. Must apply and register for program sue eligible. [employer] RIDE [phone] or [phone] Transportation for seniors and persons with ADA card/metro disabled card in the [facility]. M-F only. Must register for services. ONE GENERATION [phone] Serves 65 years + in conjunction with city ride program. Must be registered with both programs. A to B Transport [phone] Provides wheelchair/gurney van service. Adult Medical Transport [phone] Accepts [facility] with prior authorization. Care Van [phone] Provides wheelchair Transport. [facility] Wide Transportation [phone] Provides gurney service Gentle Care [phone] Gurney Transport. All Town Transportation [phone] wheelchair & gurney transport D Transportation [phone] wheelchair & gurney transport [place] Non-Emergency Transport [phone] wheelchair & gurney transport [facility] Living Center [phone] Short Term Transportation primarily for adults with disabilities on social security income. Nominal fee may apply and a reservation is required. [facility] Cab [phone] or [phone] [facility] [phone] [place] [address] Referral Services -[phone] For additional programs & services VETERANS RESOURCES: Submissions for Aid and Attendance should be done directly to [facility] office locatd at : [address] [address] X110 National Caregiver Support Line [phone] [facility] Field Office [phone] [place] Department of Sullivan Affairs [phone] Pension Information [phone]
--- NOTE | 2021-07-22 15:26 | NUR ---
RN MARYJANE TO HOLD BLOOD THINNERS FOR 48 HOURS PRIOR TO EXAM. TECH WILL ATTEMPT TO ARRANGE FOR RADIOLOGIST TO PERFORM THORACENTESIS ON SUNDAY.
[2021-07-22 16:09] VITALS: BP 114/72
--- NOTE | 2021-07-22 18:36 | NUR ---
RN CLOSING NOTE- PATIENT IN BED A/OX4. NO S/S OF APPARENT DISTRESS ON 2LPM OF O2 VIA NC. NO C/O PAIN AT THIS TIME. RIGHT ABOVE THE KNEE AMPUTATION. PT HAS NO IVF RUNNING AT THIS TIME. SHAVED AND BATHED PT, ASSISTED W CARE AFTER HD. HD W 2 L REMOVED. TOLERATED WELL. COMPLIANT AND COOPERATIVE THIS AFTERNOON. BED LOCKED, SIDE RAILS RAISED, CALL LIGHT IN REACH . WILL CONTINUE WITH PATIENT PLAN OF CARE.
--- NOTE | 2021-07-22 19:30 | NUR ---
MS RN OPENING NOTE RECEIVED PATIENT IN BED With EYES CLOSED, EASY TO AROUSE. A/OX3. NO S/S OF APPARENT DISTRESS ON 2LPM OF O2 VIA NC. NO C/O PAIN AT THIS TIME. RIGHT BELOW THE KNEE AMPUTATION. NO FLUIDS RUNNING AT THIS TIME. SAFETY IN PLACE . WILL CONTINUE WITH PATIENT PLAN OF CARE.
[2021-07-22 20:00] VITALS: BP 110/81
[2021-07-22] MEDS: ATORVASTATIN 10 MG TABLET PO SCH (22:16)
[2021-07-22] MEDS: LORAZEPAM 1 MG TABLET PO SCH (22:16)
[2021-07-22] MEDS: GUAIFENESIN/D-METHORPHAN HB 5 ML UDC PO PRN (22:18)
--- NOTE | 2021-07-22 22:22 | NUR ---
PATIENT COUGHING A LOT. REQUESTED FOR COUGH MEDICATION. GIVEN ROBITUSSIN SYRUP 5ML.
--- NOTE | 2021-07-22 23:54 | NUR ---
MS RN NOTE PATIENT WAS FEELING OUT OF BREATH, EVEN WITH THE HEAD ALL THE WAY UP AND IN 2LPM OF O2.. I TITRATED TO 3LPM THEN CHECKED SATURATION. PATIENT WAS SATING IN THE LOW 80'S. TITRATED UP TO 4LPM AND IT WAS STILL THE SAME AND FINALLY TITRATED TO 5LPM PATIENT SATURATION IS IN 95-96% NOW. WILL LEAVE AT 5LPM FOR NOW. PATIENT STABLE AT THIS TIME. WILL CONTINUE TO MONITOR AND ASSESS.
[2021-07-23] MEDS: PIPERACILLIN /TAZOBACTAM 2.25 G in IV D5W 50 ML IV SCH ×5 (00:06→23:07)
[2021-07-23] MEDS: TRAMADOL HCL 50 MG TABLET PO SCH ×2 (02:00→13:06)
[2021-07-23] MEDS: BLOOD SUGAR DIAGNOSTIC 1 EACH STRIP IN SCH ×4 (07:01→21:47)
[2021-07-23] MEDS: INSULIN REGULAR, HUMAN 100 UNIT/ML 3 ML VIAL SQ PRN (07:02)
--- NOTE | 2021-07-23 07:03 | NUR ---
MS RN NOTE BLOOD SUGAR 112. NO COVERAGE NEEDED.
--- NOTE | 2021-07-23 07:20 | NUR ---
MS RN OPENING NOTES PATIENT ON BED ASLEEP BUT RESPONSIVE TO CALL, HE IS ALERT AND ORIENTED X 4. 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 PATIENT IS ON OXYGEN AT 5LPM WITH NO SIGNS OF DISTRESS. PATIENT WITH LEFT UPPER ARM AV FISTULA WITH POSITIVE BRUIT/ THRILL. WITH LEFT FEMORAL CATHETER WITH DRESSING DRY AND INTACT. WITH RIGHT FOREARM IV ACCESS G20 ON SALINE LOCK. 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 NO COMPLAINTS OF PAIN OR DISTRESS AT THIS TIME. SAFETY MEASURES IN PLACED. CALL LIGHT WITHIN REACH. BED ON LOWEST LOCKED POSITION, SIDE RAILS UP X2. WILL CONTINUE TO MONITOR PATIENT.
--- NOTE | 2021-07-23 07:21 | NUR ---
MS RN CLOSING REPORT GIVEN TO JUAN DALTON CONTINUITY OF CARE.
[2021-07-23 07:41] LABS: BASOPHILS % (AUTO) 0.3 % (0.0-2.0); HEMATOCRIT 33 % (39-51); HEMOGLOBIN 10.7 g/dL (13.5-17.5); LYMPHOCYTES # (AUTO) 0.2 K/uL (0.8-4.8); MEAN CORPUSCULAR HGB CONC 32 g/dl (31.0-36.0); MEAN CORPUSCULAR VOLUME 97 fL (80-96); MONOCYTES # (AUTO) 0.6 K/uL (0.1-1.30); MONOCYTES % (AUTO) 7.8 % (2.0-12.0); NEUTROPHILS # (AUTO) 6.5 K/uL (1.8-8.9); NEUTROPHILS % (AUTO) 85.9 % (43.0-81.0); PLATELET COUNT (AUTO) 111 K/uL (150-450); RED BLOOD CELL COUNT(AUTO) 3.47 MIL/uL (4.5-6.0); WHITE BLOOD COUNT (AUTO) 7.6 K/uL (4.3-11.0)
[2021-07-23 08:34] LABS: CALCIUM, SERUM 8.7 mg/dL (8.5-10.1); POTASSIUM 5.5 mmol/L (3.5-5.1)
[2021-07-23] MEDS: QUETIAPINE FUMARATE 25 MG TABLET PO SCH ×2 (09:00→17:25)
[2021-07-23] MEDS: CHOLECALCIFEROL 1,000 UNIT TABLET (VIT D3) PO SCH (09:00)
[2021-07-23] MEDS: PANTOPRAZOLE 40 MG TABLET.DR PO SCH (09:00)
[2021-07-23] MEDS: VIT B CMPLX 3/FA/VIT C/BIOTIN 1 TAB TABLET PO SCH (09:01)
[2021-07-23] MEDS: SEVELAMER CARBONATE 800 MG TABLET PO SCH ×3 (09:01→17:24)
[2021-07-23] MEDS: CARVEDILOL 12.5 MG TABLET PO SCH ×2 (09:09→17:25)
[2021-07-23] MEDS: DILTIAZEM HCL CD 120 MG PO SCH (09:09)
--- NOTE | 2021-07-23 15:17 | NUR ---
MS RN NOTE S/P THORACENTESIS DONE. TOOK OUT 1.5 LITERS AND SENT TO LABORATORY FOR CYTOLOGY STUDIES. PROCEDURE TOLERATED WELL. NOTIFIED WITH ORDER TO DO XRAY. VERIFIED ORDERS AND CARRIED OUT. WILL CONTINUE TO MONITOR PATIENT.
[2021-07-23 16:00] VITALS: BP 100/60
--- NOTE | 2021-07-23 18:50 | NUR ---
MS CARLINE CLOSING NOTES PATIENT ON BED ASLEEP BUT RESPONSIVE TO CALL, HE IS ALERT AND ORIENTED X 4. 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 PATIENT IS ON OXYGEN AT 5LPM WITH NO SIGNS OF DISTRESS. PATIENT WITH LEFT UPPER ARM AV FISTULA WITH POSITIVE BRUIT/ THRILL. WITH RIGHT FOREARM IV ACCESS G20 ON SALINE LOCK. 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 NO SIGNS OF BLEEDING NOTED. NO COMPLAINTS OF PAIN OR DISTRESS AT THIS TIME. SAFETY MEASURES IN PLACED. CALL LIGHT WITHIN REACH. BED ON LOWEST LOCKED POSITION, SIDE RAILS UP X2. WILL CONTINUE TO MONITOR PATIENT. Addendum: 07/23/21 at 1857 by JUAN ONOFRE RN ADDENDUM WILL ENDORSE PATIENT FOR CONTINUITY OF CARE.
--- NOTE | 2021-07-23 19:30 | NUR ---
MS RN OPENING NOTES RECEIVED PATIENT IN BED ASLEEP, AROUSES EASILY. A/OX4, NO SOB NOTED. PATIENT IS ON OXYGEN AT 5LPM WITH NO SIGNS OF DISTRESS. PATIENT WITH LEFT UPPER ARM AV FISTULA WITH POSITIVE BRUIT AND THRILL. IV ACCESS ON RIGHT FOREARM G20 ON SL. 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 PATIENT IS LEGALLY BLIND. DENIES PAIN OR DISCOMFORT AT THIS TIME. SAFETY MEASURES IN PLACED. CALL LIGHT WITHIN REACH. BED ON LOWEST LOCKED POSITION, SIDE RAILS UP X2. WILL CONTINUE TO MONITOR PATIENT THROUGHOUT THE SHIFT.
[2021-07-23 20:00] VITALS: BP 108/68
[2021-07-23] MEDS: LORAZEPAM 1 MG TABLET PO SCH (21:18)
[2021-07-23] MEDS: ATORVASTATIN 10 MG TABLET PO SCH (21:18)
[2021-07-24] MEDS: TRAMADOL HCL 50 MG TABLET PO SCH ×2 (01:39→14:08)
[2021-07-24] MEDS: PIPERACILLIN /TAZOBACTAM 2.25 G in IV D5W 50 ML IV SCH ×4 (05:06→23:31)
[2021-07-24 06:07] LABS: BASOPHILS % (AUTO) 0.5 % (0.0-2.0); EOSINOPHILS % (AUTO) 9.1 % (0.0-6.0); HEMATOCRIT 32 % (39-51); HEMOGLOBIN 10.2 g/dL (13.5-17.5); LYMPHOCYTES # (AUTO) 0.3 K/uL (0.8-4.8); LYMPHOCYTES % (AUTO) 8.2 % (20.0-44.0); MEAN CORPUSCULAR HGB CONC 32 g/dl (31.0-36.0); MEAN CORPUSCULAR VOLUME 96 fL (80-96); MONOCYTES # (AUTO) 0.5 K/uL (0.1-1.30); MONOCYTES % (AUTO) 13.3 % (2.0-12.0); NEUTROPHILS # (AUTO) 2.4 K/uL (1.8-8.9); NEUTROPHILS % (AUTO) 68.9 % (43.0-81.0); PLATELET COUNT (AUTO) 111 K/uL (150-450); RED BLOOD CELL COUNT(AUTO) 3.29 MIL/uL (4.5-6.0); WHITE BLOOD COUNT (AUTO) 3.5 K/uL (4.3-11.0)
[2021-07-24 06:32] LABS: CALCIUM, SERUM 8.3 mg/dL (8.5-10.1); POTASSIUM 5.5 mmol/L (3.5-5.1)
[2021-07-24] MEDS: BLOOD SUGAR DIAGNOSTIC 1 EACH STRIP IN SCH ×4 (06:40→22:19)
--- NOTE | 2021-07-24 06:48 | NUR ---
MS RN CLOSING NOTES PATIENT IN BED AWAKE, A/OX4, NO SOB NOTED. PATIENT IS ON OXYGEN AT 5LPM WITH NO SIGNS OF DISTRESS. PATIENT WITH LEFT UPPER ARM AV FISTULA WITH POSITIVE BRUIT AND THRILL. IV ACCESS ON RIGHT FOREARM G20 ON SL. 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 PATIENT IS LEGALLY BLIND. DENIES PAIN OR DISCOMFORT AT THIS TIME. SAFETY MEASURES IN PLACED. CALL LIGHT WITHIN REACH. BED ON LOWEST LOCKED POSITION, SIDE RAILS UP X2. WILL ENDORSE TO ONCOMING SHIFT.
--- NOTE | 2021-07-24 07:15 | NUR ---
MS RN OPENING NOTES PATIENT ON BED ASLEEP BUT AROUSABLE TO CALL, HE IS ALERT AND ORIENTED X 4. 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 PATIENT IS ON OXYGEN AT 5LPM WITH NO SIGNS OF DISTRESS. PATIENT WITH LEFT UPPER ARM AV FISTULA WITH POSITIVE BRUIT/ THRILL. WITH RIGHT FOREARM IV ACCESS G20 ON SALINE LOCK. 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 NO SIGNS OF BLEEDING NOTED. NO COMPLAINTS OF PAIN OR DISTRESS AT THIS TIME. SAFETY MEASURES IN PLACED. CALL LIGHT WITHIN REACH. BED ON LOWEST LOCKED POSITION, SIDE RAILS UP X2. WILL CONTINUE TO MONITOR PATIENT.
[2021-07-24 07:16] LABS: CREATININE 7.8 mg/dL (0.6-1.3)
[2021-07-24] MEDS: PANTOPRAZOLE 40 MG TABLET.DR PO SCH (08:19)
[2021-07-24] MEDS: QUETIAPINE FUMARATE 25 MG TABLET PO SCH ×2 (09:39→17:18)
[2021-07-24] MEDS: SEVELAMER CARBONATE 800 MG TABLET PO SCH ×3 (09:39→17:18)
[2021-07-24] MEDS: DILTIAZEM HCL CD 120 MG PO SCH (09:40)
[2021-07-24] MEDS: CHOLECALCIFEROL 1,000 UNIT TABLET (VIT D3) PO SCH (09:40)
[2021-07-24] MEDS: VIT B CMPLX 3/FA/VIT C/BIOTIN 1 TAB TABLET PO SCH (09:40)
[2021-07-24] MEDS: CARVEDILOL 12.5 MG TABLET PO SCH ×2 (09:41→17:18)
--- NOTE | 2021-07-24 19:00 | NUR ---
MS RN CLOSING NOTES PATIENT ON BED ASLEEP BUT AROUSABLE TO CALL, HE IS ALERT AND ORIENTED X 4. 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 PATIENT IS ON OXYGEN AT 5LPM WITH NO SIGNS OF DISTRESS. PATIENT WITH LEFT UPPER ARM AV FISTULA WITH POSITIVE BRUIT/ THRILL. WITH RIGHT FOREARM IV ACCESS G20 ON SALINE LOCK. 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 NO SIGNS OF BLEEDING NOTED. NO COMPLAINTS OF PAIN OR DISTRESS AT THIS TIME. SAFETY MEASURES IN PLACED. CALL LIGHT WITHIN REACH. BED ON LOWEST LOCKED POSITION, SIDE RAILS UP X2. WILL ENDORSE FOR CONTINUITY OF CARE.
[2021-07-24 20:00] VITALS: BP 93/55
[2021-07-24] MEDS: ATORVASTATIN 10 MG TABLET PO SCH (21:53)
[2021-07-24] MEDS: LORAZEPAM 1 MG TABLET PO SCH (21:53)
[2021-07-25] MEDS: TRAMADOL HCL 50 MG TABLET PO SCH ×2 (02:42→14:17)
[2021-07-25] MEDS: PIPERACILLIN /TAZOBACTAM 2.25 G in IV D5W 50 ML IV SCH ×3 (05:16→18:14)
--- NOTE | 2021-07-25 06:30 | NUR ---
RN CLOSING NOTES Patient is A&Ox4. Safety measures in place d/t patient legally blind and fall risk. Patient is also short tempered with staff but kept calm overnight. VS WBL. BG WNL. RFA #20G flushed and patent. No overnight events. No signs of distress. Satting at 96% on 5L NC. Currently resting in bed denies any needs.
[2021-07-25] MEDS: BLOOD SUGAR DIAGNOSTIC 1 EACH STRIP IN SCH ×4 (06:45→22:01)
[2021-07-25 06:57] LABS: BASOPHILS % (AUTO) 0.4 % (0.0-2.0); EOSINOPHILS % (AUTO) 15.1 % (0.0-6.0); HEMATOCRIT 31 % (39-51); HEMOGLOBIN 9.7 g/dL (13.5-17.5); LYMPHOCYTES # (AUTO) 0.4 K/uL (0.8-4.8); LYMPHOCYTES % (AUTO) 8.7 % (20.0-44.0); MEAN CORPUSCULAR HGB CONC 32 g/dl (31.0-36.0); MEAN CORPUSCULAR VOLUME 95 fL (80-96); MONOCYTES # (AUTO) 0.7 K/uL (0.1-1.30); MONOCYTES % (AUTO) 15.6 % (2.0-12.0); NEUTROPHILS # (AUTO) 2.6 K/uL (1.8-8.9); NEUTROPHILS % (AUTO) 60.2 % (43.0-81.0); PLATELET COUNT (AUTO) 130 K/uL (150-450); WHITE BLOOD COUNT (AUTO) 4.3 K/uL (4.3-11.0)
[2021-07-25 07:31] LABS: CALCIUM, SERUM 7.8 mg/dL (8.5-10.1); POTASSIUM 5.8 mmol/L (3.5-5.1)
[2021-07-25 07:34] LABS: CREATININE 9.5 mg/dL (0.6-1.3)
[2021-07-25 08:00] VITALS: BP 96/63
[2021-07-25] MEDS: CHOLECALCIFEROL 1,000 UNIT TABLET (VIT D3) PO SCH (08:18)
[2021-07-25] MEDS: VIT B CMPLX 3/FA/VIT C/BIOTIN 1 TAB TABLET PO SCH (08:18)
[2021-07-25] MEDS: PANTOPRAZOLE 40 MG TABLET.DR PO SCH (08:18)
[2021-07-25] MEDS: SEVELAMER CARBONATE 800 MG TABLET PO SCH ×3 (08:18→18:03)
[2021-07-25] MEDS: QUETIAPINE FUMARATE 25 MG TABLET PO SCH ×2 (08:18→18:03)
[2021-07-25] MEDS: CARVEDILOL 12.5 MG TABLET PO SCH ×2 (08:24→17:00)
[2021-07-25] MEDS: DILTIAZEM HCL CD 120 MG PO SCH (08:25)
[2021-07-25 16:00] VITALS: BP 99/63
[2021-07-25] MEDS ORDERED: LIDOCAINE 1% INJ 50 ML MDV IJ PRN (17:00)
[2021-07-25 20:00] VITALS: BP 94/68
--- NOTE | 2021-07-25 20:26 | NUR ---
RN OPENING NOTES RECEIVED PT IN BED, AWAKE. AOx4, ABLE TO MAKE NEEDS KNOWN. ON NC 5LPM AND TOLERATING WELL. NO SOB NOTED. NO S/SX OF RESPIRATORY DISTRESS NOTED. IV ACCESS IN RFA#20, AND ELVER AVF. IV IS INTACT, PATENT, AND FLUSHING WELL. SAFETY PRECAUTIONS IN PLACE: BED IN LOWEST, LOCKED POSITION, SIDERAILS UPx2, AND BRAKES ON. TABLE AND CALL LIGHT WITHIN REACH. WILL CONTINUE TO MONITOR.
[2021-07-25] MEDS: LORAZEPAM 1 MG TABLET PO SCH (21:37)
[2021-07-25] MEDS: ATORVASTATIN 10 MG TABLET PO SCH (21:37)
[2021-07-25] MEDS: INSULIN REGULAR, HUMAN 100 UNIT/ML 3 ML VIAL SQ PRN (22:02)
[2021-07-26] MEDS: TRAMADOL HCL 50 MG TABLET PO SCH ×2 (01:08→14:47)
[2021-07-26] MEDS: BLOOD SUGAR DIAGNOSTIC 1 EACH STRIP IN SCH ×4 (06:34→21:46)
[2021-07-26] MEDS: INSULIN REGULAR, HUMAN 100 UNIT/ML 3 ML VIAL SQ PRN ×2 (06:35→21:49)
--- NOTE | 2021-07-26 07:30 | NUR ---
RN MS NOTES PT IN BED, AWAKE, ALERT AND ORIENTED, DENIES PAIN, NOT IN DISTRESS, WATCHING TV, CALL LIGHT WITHIN REACH, KEPT COMFORTABLE IN BED.
--- NOTE | 2021-07-26 07:50 | NUR ---
PATIENT STABLE. REPORT GIVEN TO ONCOMING SHIFT FOR MARCELO.
[2021-07-26 08:00] VITALS: BP 104/63
[2021-07-26] MEDS: CARVEDILOL 12.5 MG TABLET PO SCH ×2 (09:00→16:31)
[2021-07-26] MEDS: DILTIAZEM HCL CD 120 MG PO SCH (09:00)
[2021-07-26] MEDS: SEVELAMER CARBONATE 800 MG TABLET PO SCH ×3 (09:38→17:28)
[2021-07-26] MEDS: VIT B CMPLX 3/FA/VIT C/BIOTIN 1 TAB TABLET PO SCH (09:38)
[2021-07-26] MEDS: CHOLECALCIFEROL 1,000 UNIT TABLET (VIT D3) PO SCH (09:38)
[2021-07-26] MEDS: QUETIAPINE FUMARATE 25 MG TABLET PO SCH ×2 (09:38→17:28)
[2021-07-26] MEDS: PANTOPRAZOLE 40 MG TABLET.DR PO SCH (09:38)
[2021-07-26 13:01] LABS: BASOPHILS % (AUTO) 0.3 % (0.0-2.0); CALCIUM, SERUM 8.4 mg/dL (8.5-10.1); HEMATOCRIT 29 % (39-51); HEMOGLOBIN 9.3 g/dL (13.5-17.5); LYMPHOCYTES # (AUTO) 0.4 K/uL (0.8-4.8); LYMPHOCYTES % (AUTO) 8.7 % (20.0-44.0); MEAN CORPUSCULAR HGB CONC 33 g/dl (31.0-36.0); MEAN CORPUSCULAR VOLUME 93 fL (80-96); MONOCYTES # (AUTO) 0.7 K/uL (0.1-1.30); MONOCYTES % (AUTO) 16.9 % (2.0-12.0); NEUTROPHILS # (AUTO) 2.3 K/uL (1.8-8.9); NEUTROPHILS % (AUTO) 54.1 % (43.0-81.0); PLATELET COUNT (AUTO) 148 K/uL (150-450); POTASSIUM 5.9 mmol/L (3.5-5.1); RED BLOOD CELL COUNT(AUTO) 3.07 MIL/uL (4.5-6.0); WHITE BLOOD COUNT (AUTO) 4.3 K/uL (4.3-11.0)
[2021-07-26 13:46] LABS: CREATININE 7.7 mg/dL (0.6-1.3)
[2021-07-26 16:00] VITALS: BP 115/67
[2021-07-26 17:29] LABS: BAND % (MANUAL) 1 % (0.0-5.0); EOSINOPHILS % (MANUAL) 20 % (0-4); LYMPHOCYTES % (MANUAL) 17 % (16-48); MONOCYTES % (MANUAL) 14 % (0-11.0); NEUTROPHILS % (MANUAL) 48 (42-76)
--- NOTE | 2021-07-26 18:12 | NUR ---
RN MS NOTES PT IN BED, AWAKE, ALERT AND VERBALLY RESPONSIVE, PT WITH ONGOING HEMODIALYSIS, TOLERATES WELL, CALL LIGHT WITHIN REACH, ASSISTED WITH MEALS, PT HAD US GUIDED THORACENTESIS THIS AFTERNOON WITH 1650 ML OUTPUT, SPECIMEN SENT TO LAB FOR CYTOLOGY ORDERED, PM MEDS GIVEN, ALL NEEDS ATTENDED.
--- NOTE | 2021-07-26 19:41 | NUR ---
RN OPENING NOTES RECEIVED PT IN BED, AWAKE, RECEIVING DIALYSIS. AOx4, ABLE TO MAKE NEEDS KNOWN. ON NC 5LPM AND TOLERATING WELL. NO SOB NOTED. NO S/SX OF RESPIRATORY DISTRESS NOTED. IV ACCESS IN RFA#20, AND ELVER AVF. IV IS INTACT, PATENT, AND FLUSHING WELL. SAFETY PRECAUTIONS IN PLACE: BED IN LOWEST, LOCKED POSITION, SIDERAILS UPx2, AND BRAKES ON. TABLE AND CALL LIGHT WITHIN REACH. WILL CONTINUE TO MONITOR.
--- NOTE | 2021-07-26 19:41 | NUR ---
DIALYSIS JUST FINISHED. PER SIGNS CLEANER, 2 L OUT. VITAL SIGNS STABLE. WILL CONTINUE TO MONITOR.
[2021-07-26 20:25] VITALS: BP 108/54
[2021-07-26] MEDS: ATORVASTATIN 10 MG TABLET PO SCH (21:46)
[2021-07-26] MEDS: LORAZEPAM 1 MG TABLET PO SCH (21:46)
[2021-07-27] MEDS: TRAMADOL HCL 50 MG TABLET PO SCH ×2 (01:37→17:01)
[2021-07-27] MEDS: BLOOD SUGAR DIAGNOSTIC 1 EACH STRIP IN SCH ×4 (06:31→22:41)
[2021-07-27] MEDS: INSULIN REGULAR, HUMAN 100 UNIT/ML 3 ML VIAL SQ PRN ×2 (06:32→23:28)
--- NOTE | 2021-07-27 06:34 | NUR ---
ABRIL WNL. DID NOT ADMINISTER INSULIN. WILL CONTINUE TO MONITOR.
--- NOTE | 2021-07-27 06:47 | NUR ---
RN CLOSING NOTES PT IN BED, ASLEEP, AWAKENS TO VERBAL STIMULI. AOx4, ABLE TO MAKE NEEDS KNOWN. ON NC 5LPM AND TOLERATING WELL. NO SOB NOTED. NO S/SX OF RESPIRATORY DISTRESS NOTED. IV ACCESS IN RFA#20, AND ELVER AVF. IV IS INTACT, PATENT, AND FLUSHING WELL. ALL NEEDS MET. PT KEPT CLEAN AND DRY. SAFETY PRECAUTIONS IN PLACE: BED IN LOWEST, LOCKED POSITION, SIDERAILS UPx2, AND BRAKES ON. TABLE AND CALL LIGHT WITHIN REACH. WILL ENDORSE TO ONCOMING SHIFT FOR MARCELO.
[2021-07-27 06:57] LABS: BASOPHILS % (AUTO) 0.4 % (0.0-2.0); EOSINOPHILS % (AUTO) 18.3 % (0.0-6.0); HEMATOCRIT 30 % (39-51); HEMOGLOBIN 9.9 g/dL (13.5-17.5); LYMPHOCYTES # (AUTO) 0.4 K/uL (0.8-4.8); LYMPHOCYTES % (AUTO) 11.8 % (20.0-44.0); MEAN CORPUSCULAR HGB CONC 33 g/dl (31.0-36.0); MEAN CORPUSCULAR VOLUME 93 fL (80-96); MONOCYTES # (AUTO) 0.6 K/uL (0.1-1.30); NEUTROPHILS # (AUTO) 1.8 K/uL (1.8-8.9); NEUTROPHILS % (AUTO) 52.5 % (43.0-81.0); PLATELET COUNT (AUTO) 155 K/uL (150-450); RED BLOOD CELL COUNT(AUTO) 3.28 MIL/uL (4.5-6.0); WHITE BLOOD COUNT (AUTO) 3.4 K/uL (4.3-11.0)
[2021-07-27 07:06] LABS: ALBUMIN 2.6 g/dL (3.4-5.0); BILIRUBIN,TOTAL 0.5 mg/dL (0.2-1.0); CALCIUM, SERUM 8.3 mg/dL (8.5-10.1); CREATININE 6.4 mg/dL (0.6-1.3); POTASSIUM 5.1 mmol/L (3.5-5.1); TOTAL PROTEIN, SERUM 6.7 g/dL (6.4-8.2)
--- NOTE | 2021-07-27 07:30 | NUR ---
RN MS NOTES PT IN BED, ASLEEP, EASY TO AROUSE, ALERT AND ABLE TO MAKE NEEDS KNOWN, DENIES PAIN, NOT IN DISTRESS, CALL LIGHT WITHIN REACH, NEEDS ATTENDED.
[2021-07-27 08:00] VITALS: BP_SYST 118
[2021-07-27] MEDS: DILTIAZEM HCL CD 120 MG PO SCH (08:43)
[2021-07-27] MEDS: PANTOPRAZOLE 40 MG TABLET.DR PO SCH (08:43)
[2021-07-27] MEDS: VIT B CMPLX 3/FA/VIT C/BIOTIN 1 TAB TABLET PO SCH (08:43)
[2021-07-27] MEDS: CARVEDILOL 12.5 MG TABLET PO SCH ×2 (08:43→17:00)
[2021-07-27] MEDS: QUETIAPINE FUMARATE 25 MG TABLET PO SCH ×2 (08:43→17:01)
[2021-07-27] MEDS: SEVELAMER CARBONATE 800 MG TABLET PO SCH ×3 (08:43→17:01)
[2021-07-27] MEDS: CHOLECALCIFEROL 1,000 UNIT TABLET (VIT D3) PO SCH (08:44)
[2021-07-27 13:58] LABS: BAND % (MANUAL) 1 % (0.0-5.0); EOSINOPHILS % (MANUAL) 19 % (0-4); LYMPHOCYTES % (MANUAL) 10 % (16-48); MONOCYTES % (MANUAL) 19 % (0-11.0); NEUTROPHILS % (MANUAL) 51 (42-76)
[2021-07-27 16:00] VITALS: BP 109/55
--- NOTE | 2021-07-27 19:00 | NUR ---
RN MS NOTES PT IN BED, RESTING, EASY TO AROUSE, ALERT AND ORIENTED, REFUSED BLOOD SUGAR CHECK AND DOES NOT WANT TO BE DISTURBED, PM CARE GIVEN, ASSISTED WITH DINNER, NEEDS ATTENDED.
--- NOTE | 2021-07-27 19:15 | NUR ---
MS RN OPENING NOTES RECEIVED PATIENT LAYING AWAKE IN BED. A/OX4. PATIENT WITH REGULAR AND UNLABORED BREATHING ON 5LPM VIA NASAL CANULA, TOLERATED WELL. NO SIGNS AND SYMPTOMS OF DISTRESS NOTED AT THIS TIME. NO COMPLAINS OF PAIN OR DISCOMFORT AT THIS TIME. SAFETY PRECAUTIONS ENFORCED WITH BED LOCKED AND AT LOWEST POSITION. CALL LIGHT WITHIN REACH AT ALL TIMES. WILL CONTINUE TO MONITOR PATIENT.
[2021-07-27] MEDS: ATORVASTATIN 10 MG TABLET PO SCH (22:23)
[2021-07-27] MEDS: LORAZEPAM 1 MG TABLET PO SCH (22:23)
[2021-07-28] MEDS: TRAMADOL HCL 50 MG TABLET PO SCH ×2 (04:10→08:29)
[2021-07-28 06:55] LABS: BASOPHILS % (AUTO) 0.4 % (0.0-2.0); EOSINOPHILS % (AUTO) 16.7 % (0.0-6.0); HEMATOCRIT 31 % (39-51); HEMOGLOBIN 10.1 g/dL (13.5-17.5); LYMPHOCYTES # (AUTO) 0.4 K/uL (0.8-4.8); LYMPHOCYTES % (AUTO) 8.4 % (20.0-44.0); MEAN CORPUSCULAR HGB CONC 32 g/dl (31.0-36.0); MEAN CORPUSCULAR VOLUME 93 fL (80-96); MONOCYTES # (AUTO) 0.7 K/uL (0.1-1.30); MONOCYTES % (AUTO) 13.5 % (2.0-12.0); PLATELET COUNT (AUTO) 190 K/uL (150-450); RED BLOOD CELL COUNT(AUTO) 3.37 MIL/uL (4.5-6.0)
[2021-07-28] MEDS: BLOOD SUGAR DIAGNOSTIC 1 EACH STRIP IN SCH ×4 (07:03→21:47)
[2021-07-28 07:13] LABS: CALCIUM, SERUM 8.9 mg/dL (8.5-10.1); MAGNESIUM 2.4 mg/dL (1.8-2.4); PHOSPHORUS 5.4 mg/dL (2.5-4.9); POTASSIUM 5.5 mmol/L (3.5-5.1)
--- NOTE | 2021-07-28 07:15 | NUR ---
MS RN CLOSING NOTES PATIENT STILL LAYING AWAKE IN BED. A/OX4. PATIENT WITH REGULAR AND UNLABORED BREATHING ON 5LPM VIA NASAL CANULA, TOLERATED WELL. NO SIGNS AND SYMPTOMS OF DISTRESS NOTED AT THIS TIME. NO COMPLAINS OF PAIN OR DISCOMFORT AT THIS TIME. SAFETY PRECAUTIONS ENFORCED WITH BED LOCKED AND AT LOWEST POSITION. CALL LIGHT WITHIN REACH AT ALL TIMES. WILL ENDORSE CONTINUITY OF CARE TO DAY SHIFT NURSE.
--- NOTE | 2021-07-28 07:30 | NUR ---
ms rn received on bed, awake,alert,oriented x4,not in any form of distress, hd patient ,will have hd today, no sob noted,denies pain at this time. will monitor patient.
--- NOTE | 2021-07-28 07:35 | NUR ---
ms rn received a critical high creatinine result but patient is on hd,will follow up for hd today.
[2021-07-28 07:44] LABS: CREATININE 7.9 mg/dL (0.6-1.3)
[2021-07-28 08:00] VITALS: BP 127/75
--- NOTE | 2021-07-28 08:00 | NUR ---
ms rn hd rn came to do tx, patient is refusing.
[2021-07-28] MEDS: SEVELAMER CARBONATE 800 MG TABLET PO SCH ×3 (08:28→17:00)
[2021-07-28] MEDS: VIT B CMPLX 3/FA/VIT C/BIOTIN 1 TAB TABLET PO SCH (08:28)
[2021-07-28] MEDS: CHOLECALCIFEROL 1,000 UNIT TABLET (VIT D3) PO SCH (08:29)
[2021-07-28] MEDS: QUETIAPINE FUMARATE 25 MG TABLET PO SCH (08:29)
[2021-07-28] MEDS: PANTOPRAZOLE 40 MG TABLET.DR PO SCH (08:29)
[2021-07-28] MEDS: INSULIN REGULAR, HUMAN 100 UNIT/ML 3 ML VIAL SQ PRN (08:33)
[2021-07-28] MEDS: CARVEDILOL 12.5 MG TABLET PO SCH ×2 (09:00→17:00)
[2021-07-28] MEDS: DILTIAZEM HCL CD 120 MG PO SCH (09:00)
[2021-07-28] MEDS: diphenhydrAMINE HCL 25 MG CAPSULE PO PRN (10:24)
--- NOTE | 2021-07-28 14:45 | NUR ---
ms rn was able to do hd, no distress noted.
[2021-07-28 16:00] VITALS: BP 100/59
--- NOTE | 2021-07-28 16:00 | NUR ---
ms rn hd done w/ 500ml output,was not able to pull out more fluid due to hypotensive episodes during tx. will monitor patient.
--- NOTE | 2021-07-28 16:21 | NUR ---
ms rn refusing meds that was held before hd, will monitor b/p.
--- NOTE | 2021-07-28 17:00 | NUR ---
ms rn patient is refusing care at this time, was seen by dr. shyla finnegan/ orders made and carried out.
--- NOTE | 2021-07-28 18:00 | NUR ---
ms rn blood sugar done - 134 - patient refused 2 units of coverage, will monitor patient.
[2021-07-28] MEDS: BENZTROPINE MESYLATE (1 MG) 1 MG TABLET PO SCH (18:25)
[2021-07-28] MEDS: HALOPERIDOL 5 MG TABLET PO SCH (18:25)
--- NOTE | 2021-07-28 18:33 | NUR ---
ms rn on bed, no distress noted,all needs attended.
--- NOTE | 2021-07-28 19:35 | NUR ---
RN NOTES RECEIVED PATIENT AWAKE ON BED, A/OX3, LEGALLY BLIND, DENIES PAIN, NO SOB, CALL LIGHT WITHIN REACH, SIDERAILSUPX2, WILL CONTINUE TO MONITOR
[2021-07-28 20:00] VITALS: BP 134/77
[2021-07-28] MEDS: LORAZEPAM 1 MG TABLET PO SCH (21:46)
[2021-07-28] MEDS: ATORVASTATIN 10 MG TABLET PO SCH (21:46)
[2021-07-29] MEDS: TRAMADOL HCL 50 MG TABLET PO SCH ×2 (02:00→13:01)
--- NOTE | 2021-07-29 02:00 | NUR ---
RN NOTES ULTRAM 50 MG PO WAS NOT GIVEN , PT. SLEEPING GOOD
[2021-07-29 06:45] LABS: BASOPHILS % (AUTO) 0.4 % (0.0-2.0); EOSINOPHILS % (AUTO) 23.5 % (0.0-6.0); HEMATOCRIT 32 % (39-51); HEMOGLOBIN 10.3 g/dL (13.5-17.5); LYMPHOCYTES # (AUTO) 0.5 K/uL (0.8-4.8); LYMPHOCYTES % (AUTO) 13.6 % (20.0-44.0); MEAN CORPUSCULAR HGB CONC 32 g/dl (31.0-36.0); MEAN CORPUSCULAR VOLUME 93 fL (80-96); MONOCYTES # (AUTO) 0.5 K/uL (0.1-1.30); MONOCYTES % (AUTO) 14.5 % (2.0-12.0); NEUTROPHILS # (AUTO) 1.8 K/uL (1.8-8.9); PLATELET COUNT (AUTO) 210 K/uL (150-450); RED BLOOD CELL COUNT(AUTO) 3.46 MIL/uL (4.5-6.0); WHITE BLOOD COUNT (AUTO) 3.7 K/uL (4.3-11.0)
--- NOTE | 2021-07-29 06:45 | NUR ---
RN NOTES AWAKE, DENIES PAIN, NO SOB, CALL LIGHT WITHIN REACH, SIDERAKILSUPX2, PT. NEEDS ATTENDED
[2021-07-29] MEDS: BLOOD SUGAR DIAGNOSTIC 1 EACH STRIP IN SCH ×4 (06:47→21:55)
[2021-07-29] MEDS: PANTOPRAZOLE 40 MG TABLET.DR PO SCH (07:30)
--- NOTE | 2021-07-29 07:32 | NUR ---
ms rn received on bed, awake,alert,oriented x4,not in any form of distress, respirations even and unlabored,no sob noted,denies pain at this time, will monitor patient's conditon.
[2021-07-29 08:00] VITALS: BP 135/75
--- NOTE | 2021-07-29 08:30 | NUR ---
ms rn patient on npo for thoracenthesis today.
[2021-07-29 08:38] LABS: CALCIUM, SERUM 8.9 mg/dL (8.5-10.1); CREATININE 6.6 mg/dL (0.6-1.3); PHOSPHORUS 5.1 mg/dL (2.5-4.9); POTASSIUM 4.8 mmol/L (3.5-5.1)
[2021-07-29] MEDS: BENZTROPINE MESYLATE (1 MG) 1 MG TABLET PO SCH ×3 (09:00→17:22)
[2021-07-29] MEDS: HALOPERIDOL 5 MG TABLET PO SCH ×3 (09:00→17:22)
[2021-07-29] MEDS: SEVELAMER CARBONATE 800 MG TABLET PO SCH ×3 (09:00→17:22)
[2021-07-29 09:15] VITALS: BP 147/87
[2021-07-29] MEDS ORDERED: NALOXONE PREFILLED SYRINGE 2 MG/2 ML SYRINGE IV PRN (09:30)
[2021-07-29] MEDS ORDERED: MIDAZOLAM HCL 2 MG/2ML VIAL IV PRN (09:30)
[2021-07-29] MEDS ORDERED: FENTANYL PF 250MCG/5ML AMPUL IV PRN (09:30)
[2021-07-29] MEDS ORDERED: FLUMAZENIL 0.5 MG VIAL IV PRN (09:30)
[2021-07-29 09:46] VITALS: BP 104/57
[2021-07-29 09:50] VITALS: BP 106/65
--- NOTE | 2021-07-29 10:05 | NUR ---
ms rn patient went down for procedure,all needs attended.
[2021-07-29 10:18] VITALS: BP 115/65
--- NOTE | 2021-07-29 11:05 | NUR ---
ms rn patient came back from post thoracentesis w/ pigtail drain connected to water seal tube, received w/ 650cc level ,pus like color,initially, site covered w/ dressing,no s/s of bleeding noted.
[2021-07-29] MEDS: CHOLECALCIFEROL 1,000 UNIT TABLET (VIT D3) PO SCH (13:01)
[2021-07-29] MEDS: VIT B CMPLX 3/FA/VIT C/BIOTIN 1 TAB TABLET PO SCH (13:02)
[2021-07-29] MEDS: CARVEDILOL 12.5 MG TABLET PO SCH ×2 (13:03→17:22)
[2021-07-29] MEDS: DILTIAZEM HCL CD 120 MG PO SCH (13:04)
--- NOTE | 2021-07-29 14:00 | NUR ---
ms rn was seen by dr. garza, wanted to connect water seal tube to low intermittent suction,all needs attended.
[2021-07-29 14:02] LABS: EOSINOPHILS % (MANUAL) 27 % (0-4); LYMPHOCYTES % (MANUAL) 10 % (16-48); MONOCYTES % (MANUAL) 17 % (0-11.0); NEUTROPHILS % (MANUAL) 46 (42-76)
--- NOTE | 2021-07-29 14:10 | NUR ---
rn due all meds given, including those were not given this morning.
--- NOTE | 2021-07-29 17:37 | NUR ---
ms rn on bed, eating dinner, denies pain, chest tube still intact draining pus like color,all needs attended.
--- NOTE | 2021-07-29 19:11 | NUR ---
MS RN NOTES received on bed, awake,alert,oriented x4,not in any form of distress, respirations even and unlabored,no sob noted,denies pain at this time, pt s/p thoracentesis with chest tube placement noted pt with chest tube connected to wall with intermittent suction noted with 1750cc of drainage. will continue to monitor pt. Addendum: 07/29/21 at 2053 by JAMAAL FIELDS RN correction noted with 2100 cc output at this time. chamber changed.
[2021-07-29 20:00] VITALS: BP 124/74
[2021-07-29] MEDS: LORAZEPAM 1 MG TABLET PO SCH (21:55)
[2021-07-29] MEDS: ATORVASTATIN 10 MG TABLET PO SCH (21:55)
[2021-07-29] MEDS: INSULIN REGULAR, HUMAN 100 UNIT/ML 3 ML VIAL SQ PRN (22:05)
[2021-07-30] MEDS: TRAMADOL HCL 50 MG TABLET PO SCH ×2 (02:00→14:00)
--- NOTE | 2021-07-30 05:25 | NUR ---
MS RN NOTES PT PULLED OUT IV PT IS IN A BAD MOOD WILL NOT LET ME REINSERT IV AT THIS TIME. PT ALSO REFUSED BLOOD DRAW AT THIS TIME. CHARGE NURSE MADE AWARE WILL CONTINUE TO MONITOR.
--- NOTE | 2021-07-30 06:46 | NUR ---
MS RN NOTES pt in bed , awake,alert,oriented x4,not in any form of distress, respirations even and unlabored,no sob noted,denies pain at this time, noted pt with chest tube connected to wall with intermittent suction noted with 70 cc of drainage. pt still refusing iv insertion at this time and refused aq check as well will endorse care to day shift nurse.
[2021-07-30] MEDS: BLOOD SUGAR DIAGNOSTIC 1 EACH STRIP IN SCH ×4 (07:26→22:39)
--- NOTE | 2021-07-30 07:30 | NUR ---
MS RN OPENING NOTES RECEIVED PATIENT ON BED, AWAKE AND A/O X4. ON ROOM AIR TOLERATING WELL. NO SOB NOTED. NOT IN DISTRESS. WITH NO COMPLAINTS OF PAIN OR DISCOMFORT AT THIS TIME. WITH NO IV ACCESS. PATIENT PULLED OUT IV LINE. REFUSED FOR IV LINE INSERTION. SAFETY MEASURES IN PLACED. CALL LIGHT WITHIN REACH. BED ON LOWEST LOCKED POSITION, SIDE RAILS UP X2. WILL CONTINUE TO MONITOR.
[2021-07-30 08:00] VITALS: BP 114/62
[2021-07-30] MEDS: HALOPERIDOL 5 MG TABLET PO SCH ×3 (08:48→16:37)
[2021-07-30] MEDS: PANTOPRAZOLE 40 MG TABLET.DR PO SCH (08:48)
[2021-07-30] MEDS: SEVELAMER CARBONATE 800 MG TABLET PO SCH ×3 (08:48→16:37)
[2021-07-30] MEDS: VIT B CMPLX 3/FA/VIT C/BIOTIN 1 TAB TABLET PO SCH (08:48)
[2021-07-30] MEDS: CHOLECALCIFEROL 1,000 UNIT TABLET (VIT D3) PO SCH (08:48)
[2021-07-30] MEDS: CARVEDILOL 12.5 MG TABLET PO SCH ×2 (08:49→16:38)
[2021-07-30] MEDS: BENZTROPINE MESYLATE (1 MG) 1 MG TABLET PO SCH ×3 (08:50→16:37)
[2021-07-30] MEDS: DILTIAZEM HCL CD 120 MG PO SCH (09:00)
[2021-07-30 18:06] LABS: BASOPHILS % (AUTO) 0.2 % (0.0-2.0); HEMATOCRIT 31 % (39-51); HEMOGLOBIN 10.1 g/dL (13.5-17.5); LYMPHOCYTES # (AUTO) 0.3 K/uL (0.8-4.8); LYMPHOCYTES % (AUTO) 9.5 % (20.0-44.0); MEAN CORPUSCULAR HGB CONC 32 g/dl (31.0-36.0); MEAN CORPUSCULAR VOLUME 92 fL (80-96); MONOCYTES # (AUTO) 0.4 K/uL (0.1-1.30); MONOCYTES % (AUTO) 11.8 % (2.0-12.0); NEUTROPHILS # (AUTO) 2.2 K/uL (1.8-8.9); NEUTROPHILS % (AUTO) 63.5 % (43.0-81.0); PLATELET COUNT (AUTO) 216 K/uL (150-450); WHITE BLOOD COUNT (AUTO) 3.5 K/uL (4.3-11.0)
[2021-07-30 18:31] LABS: CALCIUM, SERUM 8.3 mg/dL (8.5-10.1); CREATININE 5.6 mg/dL (0.6-1.3); PHOSPHORUS 4.1 mg/dL (2.5-4.9); POTASSIUM 4.8 mmol/L (3.5-5.1)
--- NOTE | 2021-07-30 19:14 | NUR ---
MS RN CLOSING NOTES PATIENT ON BED, AWAKE AND A/O X4. ON ROOM AIR TOLERATING WELL. NO SOB NOTED. NOT IN DISTRESS. WITH NO COMPLAINTS OF PAIN OR DISCOMFORT AT THIS TIME. WITH NO IV ACCESS. PATIENT STILL REFUSED FOR IV LINE INSERTION. DUE MEDS GIVEN. SAFETY MEASURES IN PLACED. CALL LIGHT WITHIN REACH. BED ON LOWEST LOCKED POSITION, SIDE RAILS UP X2. WILL ENDORSE TO NEXT SHIFT FOR MARCELO.
--- NOTE | 2021-07-30 19:35 | NUR ---
RN NOTES RECEIVED PATIENT SLEEPING BUT AROUSABLE, CHEST TUBE IN PLACE, NOT IN DISTRESS, NO PAIN NOTED, A/OX3. LEGALLY BLIND, CALL LIGHT WITHIN REACH, SIDERAILSUPX2, WILL CONTINUE TO MONITOR
[2021-07-30 20:00] VITALS: BP 100/57
[2021-07-30] MEDS: LORAZEPAM 1 MG TABLET PO SCH (22:40)
[2021-07-30] MEDS: ATORVASTATIN 10 MG TABLET PO SCH (22:40)
[2021-07-31] MEDS: TRAMADOL HCL 50 MG TABLET PO SCH ×2 (01:49→13:05)
[2021-07-31 06:12] LABS: BASOPHILS % (AUTO) 0.2 % (0.0-2.0); EOSINOPHILS % (AUTO) 13.3 % (0.0-6.0); HEMATOCRIT 28 % (39-51); LYMPHOCYTES # (AUTO) 0.4 K/uL (0.8-4.8); LYMPHOCYTES % (AUTO) 9.9 % (20.0-44.0); MEAN CORPUSCULAR HGB CONC 32 g/dl (31.0-36.0); MEAN CORPUSCULAR VOLUME 93 fL (80-96); MONOCYTES # (AUTO) 0.5 K/uL (0.1-1.30); MONOCYTES % (AUTO) 12.6 % (2.0-12.0); NEUTROPHILS # (AUTO) 2.5 K/uL (1.8-8.9); PLATELET COUNT (AUTO) 201 K/uL (150-450); RED BLOOD CELL COUNT(AUTO) 2.99 MIL/uL (4.5-6.0); WHITE BLOOD COUNT (AUTO) 3.9 K/uL (4.3-11.0)
[2021-07-31] MEDS: INSULIN REGULAR, HUMAN 100 UNIT/ML 3 ML VIAL SQ PRN ×3 (06:22→16:40)
--- NOTE | 2021-07-31 06:54 | NUR ---
RN NOTES AWAKE, DENIES PAIN, CHEST TUBE IN PLACE, NO SOB, MORNING CARE RENDERED, PT. NEEDS ATTENDED
[2021-07-31] MEDS: BLOOD SUGAR DIAGNOSTIC 1 EACH STRIP IN SCH ×4 (06:59→21:05)
--- NOTE | 2021-07-31 07:20 | NUR ---
MS RN OPENING NOTES RECEIVED PATIENT IN BED, AWAKE, VERBALLY RESPONSIVE. NO SIGNS OF ACUTE DISTRESS NOTED. CURRENTLY ON ROOM AIR, TOLERATING WELL. SPO2 98%, NO SOB NOTED. WITH CHEST TUBE INTACT ATTACHED TO PLEURAVAC WITH PURULENT DRAINAGE. AV FISTULA ON LEFT UPPER ARM, (+) BRUITS AND THRILLS. NO BLEEDING NOTED. NO IV ACCESS NOTED. SAFETY MEASURES PROVIDED. BED IN LOWEST LOCKED POSITION, SR UP X2, CALL LIGHT PLACED WITHIN EASY REACH. WILL CONTINUE TO MONITOR.
[2021-07-31 07:22] LABS: CALCIUM, SERUM 8.3 mg/dL (8.5-10.1); CREATININE 6.8 mg/dL (0.6-1.3); MAGNESIUM 2.1 mg/dL (1.8-2.4); PHOSPHORUS 4.6 mg/dL (2.5-4.9); POTASSIUM 4.8 mmol/L (3.5-5.1)
[2021-07-31] MEDS: PANTOPRAZOLE 40 MG TABLET.DR PO SCH (08:14)
[2021-07-31] MEDS: BENZTROPINE MESYLATE (1 MG) 1 MG TABLET PO SCH ×3 (08:15→16:18)
[2021-07-31] MEDS: VIT B CMPLX 3/FA/VIT C/BIOTIN 1 TAB TABLET PO SCH (08:15)
[2021-07-31] MEDS: CHOLECALCIFEROL 1,000 UNIT TABLET (VIT D3) PO SCH (08:15)
[2021-07-31] MEDS: SEVELAMER CARBONATE 800 MG TABLET PO SCH ×3 (08:15→16:18)
[2021-07-31] MEDS: DILTIAZEM HCL CD 120 MG PO SCH (08:15)
[2021-07-31] MEDS: HALOPERIDOL 5 MG TABLET PO SCH ×3 (08:15→16:18)
[2021-07-31] MEDS: CARVEDILOL 12.5 MG TABLET PO SCH ×2 (08:15→16:19)
[2021-07-31 08:46] VITALS: BP 155/98
[2021-07-31] MEDS: DEXTROSE 50%-WATER 50 ML DISP.SYRIN IV PRN (09:38)
--- NOTE | 2021-07-31 10:00 | NUR ---
RN NOTES PATIENT NOTED WITH BS OF 32 MG/DL @ 0930. DOZING INTERMITTENTLY, ORANGE JUICE GIVEN. NEW IV ACCESS INSERTED ON LFA #20G. D50% W GIVEN VIA IV. RECHECKED BS @ 15 MINUTES 165 MG/DL. PATIENT AWAKE, VERBALLY RESPONSIVE. DEGREASING SOLUTION MIXER HELPED HER EAT BREAKFAST. WILL CONTINUE TO MONITOR.
[2021-07-31] MEDS ORDERED: NEPRO VAN 237 ML CAN PO PRN (13:00)
[2021-07-31 15:55] VITALS: BP 103/61
--- NOTE | 2021-07-31 18:49 | NUR ---
MS RN CLOSING NOTES PATIENT IN BED, AWAKE, VERBALLY RESPONSIVE. NO SIGNS OF ACUTE DISTRESS NOTED. CURRENTLY ON ROOM AIR, TOLERATING WELL. SPO2 97%, NO SOB NOTED. WITH CHEST TUBE INTACT ATTACHED TO PLEURAVAC WITH PURULENT DRAINAGE, NOTED WITH 10 ML TOTAL OUTPUT THIS SHIFT. AV FISTULA ON LEFT UPPER ARM, (+) BRUITS AND THRILLS. NO BLEEDING NOTED. IV ACCESS ON RFA INTACT AND PATENT, SL. SAFETY MEASURES MAINTAINED. BED IN LOWEST LOCKED POSITION, SR UP X2, CALL LIGHT PLACED WITHIN EASY REACH. WILL ENDORSE TO NEXT SHIFT.
--- NOTE | 2021-07-31 19:30 | NUR ---
RN NOTES RECEIVED PATIENT AWAKE ON BED, A/OX2, LEGALLY BLIND, CHEST TUBE IN PLACE, NOT IN DISTRESS, DENIES PAIN, CALL LIGHT WITHIN REACH, SIDERAILSUPX2, WILL CONTINUE TO MONITOR
[2021-07-31 20:00] VITALS: BP 95/67
[2021-07-31] MEDS: ATORVASTATIN 10 MG TABLET PO SCH (21:05)
[2021-07-31] MEDS: LORAZEPAM 1 MG TABLET PO SCH (21:05)
--- NOTE | 2021-07-31 22:00 | NUR ---
RN NOTES BLOOD SUGAR 165- PT. REFUSED INSULIN COVERAGE
[2021-08-01] MEDS: TRAMADOL HCL 50 MG TABLET PO SCH ×2 (02:19→13:34)
[2021-08-01 05:59] LABS: BASOPHILS % (AUTO) 0.5 % (0.0-2.0); EOSINOPHILS % (AUTO) 15.5 % (0.0-6.0); HEMATOCRIT 30 % (39-51); HEMOGLOBIN 9.7 g/dL (13.5-17.5); LYMPHOCYTES # (AUTO) 0.4 K/uL (0.8-4.8); LYMPHOCYTES % (AUTO) 8.9 % (20.0-44.0); MEAN CORPUSCULAR HGB CONC 32 g/dl (31.0-36.0); MEAN CORPUSCULAR VOLUME 92 fL (80-96); MONOCYTES # (AUTO) 0.4 K/uL (0.1-1.30); MONOCYTES % (AUTO) 9.7 % (2.0-12.0); NEUTROPHILS % (AUTO) 65.4 % (43.0-81.0); PLATELET COUNT (AUTO) 230 K/uL (150-450); RED BLOOD CELL COUNT(AUTO) 3.27 MIL/uL (4.5-6.0); WHITE BLOOD COUNT (AUTO) 4.6 K/uL (4.3-11.0)
--- NOTE | 2021-08-01 06:25 | NUR ---
RN NOTES AWAKE, MORNING CARE RENDERED, REFUSED PHOTO, DENIES PAIN, NO SOB, CALL LIGHT WITHIN REACH, SIDERAILSUPX2, PT. NEEDS ATTENDED
[2021-08-01 06:43] LABS: CALCIUM, SERUM 8.7 mg/dL (8.5-10.1); MAGNESIUM 2.4 mg/dL (1.8-2.4); PHOSPHORUS 5.2 mg/dL (2.5-4.9); POTASSIUM 5.7 mmol/L (3.5-5.1)
[2021-08-01 06:49] LABS: CREATININE 8.5 mg/dL (0.6-1.3)
[2021-08-01] MEDS: BLOOD SUGAR DIAGNOSTIC 1 EACH STRIP IN SCH ×4 (07:37→21:36)
[2021-08-01] MEDS: PANTOPRAZOLE 40 MG TABLET.DR PO SCH (07:48)
[2021-08-01] MEDS: VIT B CMPLX 3/FA/VIT C/BIOTIN 1 TAB TABLET PO SCH (08:16)
[2021-08-01] MEDS: SEVELAMER CARBONATE 800 MG TABLET PO SCH ×3 (08:16→16:44)
[2021-08-01] MEDS: HALOPERIDOL 5 MG TABLET PO SCH ×3 (08:16→16:45)
[2021-08-01] MEDS: CHOLECALCIFEROL 1,000 UNIT TABLET (VIT D3) PO SCH (08:16)
[2021-08-01] MEDS: BENZTROPINE MESYLATE (1 MG) 1 MG TABLET PO SCH ×3 (08:16→16:44)
[2021-08-01] MEDS: DILTIAZEM HCL CD 120 MG PO SCH (08:27)
[2021-08-01] MEDS: CARVEDILOL 12.5 MG TABLET PO SCH ×2 (08:27→16:46)
[2021-08-01 08:45] VITALS: BP 80/40
[2021-08-01] MEDS: INSULIN REGULAR, HUMAN 100 UNIT/ML 3 ML VIAL SQ PRN (11:46)
--- NOTE | 2021-08-01 13:49 | NUR ---
RN NOTES RECEIVED PATIENT IN BED, ASLEEP EASY TO AROUSE, VERBALLY RESPONSIVE. NO SIGNS OF ACUTE DISTRESS NOTED. CURRENTLY ON ROOM AIR, TOLERATING WELL. SPO2 98%, NO DISTRESS & NO SOB NOTED. PATIENT SLEEPING ON RIGHT SIDE WITH CHEST TUBE INTACT IT IS ATTACHED TO PLEURAVAC - PURULENT DRAINAGE, NOTED WITH 30 ML , AV FISTULA ON LEFT UPPER ARM, (+) BRUITS/ THRILLS NOTED INTACT, IV ACCESS ON RFA INTACT AND PATENT EASY TO FLUSH, BED LOW TO FLOOR, WHEELS LOCKED SAFETY MEASURES INPLACE, SR UP X2, CALL LIGHT PLACED WITHIN EASY REACH. CONSENT FOR THORANCENTISIS FILLED OUT SIGNED DATED IN AGREEMENT TO COOPERATE NEEDED AT THIS TIME,
[2021-08-01] MEDS ORDERED: DEXTROSE 50%-WATER 50 ML DISP.SYRIN IVP ONE (16:00)
[2021-08-01] MEDS ORDERED: Calcium Gluconate 1GM/10ML 4.65 MEQ in IV D5W 50 ML IV ONE (16:00)
[2021-08-01] MEDS ORDERED: INSULIN REGULAR, HUMAN 100 UNIT/ML 10 ML VIAL IV ONE (16:00)
[2021-08-01] MEDS ORDERED: SODIUM POLYSTYRENE SULFONATE 15 G/60 ML BOTTLE PO ONE (16:00)
--- NOTE | 2021-08-01 19:27 | NUR ---
RN OPENING NOTES RECEIVED PT IN BED, AWAKE, SITTING UP AT BEDSIDE. AOx2-3, ABLE TO MAKE NEEDS KNOWN. [place] NC 2LPM AND TOLERATING WELL. NO SOB NOTED. NO S/SX OF RESPIRATORY DISTRESS NOTED. IV ACCESS IN RFA #20G AND L AV FISTULA. IV IS INTACT, PATENT, AND FLUSHING WELL. SAFETY PRECAUTIONS IN PLACE: BED IN LOWEST, LOCKED POSITION, SIDERAILS UPx2, AND BRAKES ON. TABLE AND CALL LIGHT WITHIN REACH. WILL CONTINUE TO MONITOR.
[2021-08-01] MEDS: ATORVASTATIN 10 MG TABLET PO SCH (21:16)
[2021-08-01] MEDS: LORAZEPAM 1 MG TABLET PO SCH (21:16)
--- NOTE | 2021-08-01 22:07 | NUR ---
PATIENT ALMOST FELL OUT OF BED. ATTEMPTED TO HELP PATIENT LAY IN BED RATHER THAN SIT AT THE EDGE. PT BECOMES ANGRY AND HOSTILE. REFUSES HELP AND DOES NOT WANT TO LAY IN BED. WILL CONTINUE TO MONITOR.
[2021-08-02] MEDS: TRAMADOL HCL 50 MG TABLET PO SCH ×2 (01:06→13:31)
--- NOTE | 2021-08-02 06:53 | NUR ---
RN CLOSING NOTES PT IN BED, AWAKE, SITTING AT BEDSIDE. AOx2-3, ABLE TO MAKE NEEDS KNOWN. ON NC 2LPM AND TOLERATING WELL. NO SOB NOTED. NO S/SX OF RESPIRATORY DISTRESS NOTED. IV ACCESS IN RFA #20G AND L AV FISTULA. IV IS INTACT, PATENT, AND FLUSHING WELL. PT DENIED LINEN CHANGE. ALL NEEDS MET. SAFETY PRECAUTIONS IN PLACE: BED IN LOWEST, LOCKED POSITION, SIDERAILS UPx2, AND BRAKES ON. TABLE AND CALL LIGHT WITHIN REACH. WILL ENDORSE TO ONCOMING SHIFT FOR MARCELO.
[2021-08-02] MEDS: BLOOD SUGAR DIAGNOSTIC 1 EACH STRIP IN SCH ×4 (07:48→21:28)
[2021-08-02 08:00] VITALS: BP 148/89
--- NOTE | 2021-08-02 08:02 | NUR ---
RN NOTES DIALYSIS NURSE AT BEDSIDE FOR SCHEDULED HD TODAY.
[2021-08-02] MEDS: PANTOPRAZOLE 40 MG TABLET.DR PO SCH (09:01)
[2021-08-02] MEDS: VIT B CMPLX 3/FA/VIT C/BIOTIN 1 TAB TABLET PO SCH (09:02)
[2021-08-02] MEDS: SEVELAMER CARBONATE 800 MG TABLET PO SCH ×3 (09:02→16:04)
[2021-08-02] MEDS: HALOPERIDOL 5 MG TABLET PO SCH ×3 (09:03→16:21)
[2021-08-02] MEDS: BENZTROPINE MESYLATE (1 MG) 1 MG TABLET PO SCH ×3 (09:03→16:21)
[2021-08-02] MEDS: CHOLECALCIFEROL 1,000 UNIT TABLET (VIT D3) PO SCH (09:03)
[2021-08-02] MEDS: DILTIAZEM HCL CD 120 MG PO SCH (09:04)
[2021-08-02] MEDS: CARVEDILOL 12.5 MG TABLET PO SCH ×2 (09:04→16:03)
--- NOTE | 2021-08-02 09:19 | NUR ---
RN NOTES PATIENT SEEN BY DR. MALIK; REORDERED TRIGLYCERIDE LEVEL FROM PLEURAL FLUID ASPIRATE RESULT IS NOT SHOWN IN RECORD.
--- NOTE | 2021-08-02 09:50 | NUR ---
RN NOTES SPECIMEN OBTAINED FOR TRIG LEVEL.
--- NOTE | 2021-08-02 10:30 | NUR ---
RN NOTES SPECIMEN BROUGHT TO LAB FOR PROCESSING FOR TRIG LEVEL.
--- NOTE | 2021-08-02 12:30 | NUR ---
RN NOTES S/P HD, OUTPUT OF 400CC PER HD NURSE. ELVER AV FISTULA SECURED W/ DRY DRESSING AND TAPE.
[2021-08-02] MEDS: INSULIN REGULAR, HUMAN 100 UNIT/ML 3 ML VIAL SQ PRN ×3 (12:38→21:35)
[2021-08-02 15:00] LABS: BASOPHILS % (AUTO) 0.4 % (0.0-2.0); EOSINOPHILS % (AUTO) 20.2 % (0.0-6.0); HEMATOCRIT 29 % (39-51); HEMOGLOBIN 9.4 g/dL (13.5-17.5); LYMPHOCYTES # (AUTO) 0.4 K/uL (0.8-4.8); LYMPHOCYTES % (AUTO) 13.7 % (20.0-44.0); MEAN CORPUSCULAR HGB CONC 32 g/dl (31.0-36.0); MEAN CORPUSCULAR VOLUME 92 fL (80-96); MONOCYTES # (AUTO) 0.6 K/uL (0.1-1.30); MONOCYTES % (AUTO) 17.3 % (2.0-12.0); NEUTROPHILS # (AUTO) 1.6 K/uL (1.8-8.9); NEUTROPHILS % (AUTO) 48.4 % (43.0-81.0); PLATELET COUNT (AUTO) 200 K/uL (150-450); RED BLOOD CELL COUNT(AUTO) 3.18 MIL/uL (4.5-6.0); WHITE BLOOD COUNT (AUTO) 3.2 K/uL (4.3-11.0)
[2021-08-02 15:15] LABS: CALCIUM, SERUM 8.6 mg/dL (8.5-10.1); CREATININE 6.8 mg/dL (0.6-1.3); MAGNESIUM 2.1 mg/dL (1.8-2.4); PHOSPHORUS 4.3 mg/dL (2.5-4.9); POTASSIUM 5.2 mmol/L (3.5-5.1)
[2021-08-02 16:06] LABS: EOSINOPHILS % (MANUAL) 18 % (0-4); LYMPHOCYTES % (MANUAL) 9 % (16-48); MONOCYTES % (MANUAL) 17 % (0-11.0); NEUTROPHILS % (MANUAL) 56 (42-76)
--- NOTE | 2021-08-02 18:56 | NUR ---
RN NOTES PATIENT SITTING AT BEDSIDE FINISHED EATING DINNER. REFUSED TO BE REPOSITIONED IN BED, STATING HE'S COMFORTABLE ALREADY. IV LINE AND FISTULA INTACT, DRESSING C/D/I. ASSISTED W/ MEALS/FEEDING APPLICABLE. SAFETY MEASURES MAINTAINED. WILL ENDORSE TO DIRECTOR NETWORK DEVELOPMENT RN FOR MARCELO.
--- NOTE | 2021-08-02 19:30 | NUR ---
RN OPENING NOTE PATIENT SITTING AT THE EDGE OF THE BED, PATIENT IS A/O X 2-3 AT THIS TIME. PATIENT DOES NOT WANT TO BE REPOSITIONED RIGHT NOW, WILL TRY AGAIN AT A LATER TIME. CHEST TUBE PLACED. RFA 20 G PATENT AND INTACT. DRESSING ON ELVER AV FISTULA DRESSING C/D/I. SAFETY MEASURES IMPLEMENTED: BED LOCKED AND IN LOWEST POSITION, CALL LIGHT WITHIN REACH, SIDE RAILS UP. WILL MONITOR PATIENT CLOSELY.
[2021-08-02] MEDS: ATORVASTATIN 10 MG TABLET PO SCH (21:28)
[2021-08-02] MEDS: LORAZEPAM 1 MG TABLET PO SCH (21:29)
--- NOTE | 2021-08-02 21:31 | NUR ---
RN NOTE BS 137 MG/DL, REFUSES INSULIN. PATIENT EATING HIS DINNER AT THIS MOMENT.
[2021-08-03] VITALS (16 sets, daily range): BP systolic 90–121; BP diastolic 48–82
[2021-08-03] MEDS: TRAMADOL HCL 50 MG TABLET PO SCH ×2 (01:21→16:42)
--- NOTE | 2021-08-03 02:55 | NUR ---
RN NOTE PATIENT FOUND ON THE FLOOR SITTING UP RIGHT NEXT TO THE BED. PATIENT DID NOT OBTAIN ANY INJURIES FROM THE INCIDENT. PATIENT STATES HE SLID OFF THE BED WANTING TO GET A BLANKET. VSS. BP 117/69, HR 71, TEMP 98.0, 96% O2 SAT. CHEST TUBE STILL INTACT AND IN PLACE. BODY ASSESSED, NO BRUISES OR REDNESS BESIDES CURRENT SKIN ISSUES.
--- NOTE | 2021-08-03 06:40 | NUR ---
RAPID RESPONSE STARTED. NURSING VP EMERGING MEDIA PRESENT, RT AND MD. BACTERIOLOGIST PHARMACEUTICAL. RAPID RESPONSE TEAM.
--- NOTE | 2021-08-03 06:44 | NUR ---
STAT CBC, ABG 15L NRB, 111/63 94 HR, 87% O2 SAT
--- NOTE | 2021-08-03 06:50 | NUR ---
[employer] CREDIT ADMINISTRATION OFFICER CALLED AND NOTIFIED REGARDING IT BUSINESS SYSTEMS ANALYST AND PTIENT TO TRANSFER TO ICU
--- NOTE | 2021-08-03 06:53 | NUR ---
TRANSFERRED TO ICU RAPID RESPONSE ENDED. RM 259 ENDORSED TO TELEVISION ANNOUNCER.
--- NOTE | 2021-08-03 07:10 | NUR ---
REPORT GIVEN TO ENTERTAINMENT PRODUCTION PROFESSIONAL
[2021-08-03] MEDS: PANTOPRAZOLE 40 MG TABLET.DR PO SCH (07:30)
--- NOTE | 2021-08-03 07:30 | NUR ---
RN NOTES PT FOUND SEMI FOWLERS DISPLAYING MILD DISTRESS, FLACC = 3 AND PT STRUGGLING AGAINST BI-PAP. PT HAS GOOD SPO2 AND IS NOT BREATHING WITH EXAGGERATED LABOR. R FA 20G IS PATIENT AND INTACT. CHEST TUBE INTACT, NO TIDLING OBSERVED IN DRAIN, RN WILL INVESTIGATE. VSS, RN WILL MONITOR AND TREAT THROUGHOUT SHIFT. SAFETY MEASURES IN PLACE, BED LOCKED AND IN LOWEST POSITION, SIDE RAILS UPX2, CALL LIGHT WITHIN REACH, BED ALARM ARMED.
[2021-08-03] MEDS: BLOOD SUGAR DIAGNOSTIC 1 EACH STRIP IN SCH ×4 (07:54→22:12)
--- NOTE | 2021-08-03 08:00 | NUR ---
NURSES NOTES PROTONIX PO NOT GIVEN. PT JUST PLACED ON BI-PAP WITH NOW KNOWLEDGE OF RESPIRATORY STATUS OUTSIDE OF SPO2. BEST TO LEAVE BI-PAP UNTIL MORE IS KNOWN.
--- NOTE | 2021-08-03 08:30 | NUR ---
PATIENT TRANSFER RN CALLED AND GAVE REPORT TO 3W RN. ALL QUESTIONS ANSWERED. PT IS CURRENTLY BREATHING EVEN AND UNLABORED ON RA, NO C/O PAIN. PT A&O STATUS IS DIFFICULT TO DETERMINE BECAUSE PT IS RESPONSIVE TO COMMANDS BUT ONLY GRUNTS IN RESPONSE. PT TRANSPORTED VIA HOSPITAL BED ON BED SIDE MONITOR. R FA 20G IS PATIENT AND INTACT. RETEST OF ACCU CHECK IS 147. PT ENDORSED IN STABLE CONDITION FOR MARCELO.
[2021-08-03] MEDS: HALOPERIDOL 5 MG TABLET PO SCH ×3 (08:45→17:00)
[2021-08-03] MEDS: VIT B CMPLX 3/FA/VIT C/BIOTIN 1 TAB TABLET PO SCH (08:46)
[2021-08-03] MEDS: CHOLECALCIFEROL 1,000 UNIT TABLET (VIT D3) PO SCH (08:46)
[2021-08-03] MEDS: CARVEDILOL 12.5 MG TABLET PO SCH ×2 (08:46→16:44)
[2021-08-03] MEDS: BENZTROPINE MESYLATE (1 MG) 1 MG TABLET PO SCH ×3 (08:46→17:00)
[2021-08-03] MEDS: SEVELAMER CARBONATE 800 MG TABLET PO SCH ×3 (08:46→17:00)
[2021-08-03] MEDS: DILTIAZEM HCL CD 120 MG PO SCH (08:47)
[2021-08-03 09:08] LABS: BASOPHILS % (AUTO) 0.2 % (0.0-2.0); EOSINOPHILS % (AUTO) 7.1 % (0.0-6.0); HEMATOCRIT 31 % (39-51); HEMOGLOBIN 9.7 g/dL (13.5-17.5); LYMPHOCYTES # (AUTO) 0.5 K/uL (0.8-4.8); LYMPHOCYTES % (AUTO) 7.2 % (20.0-44.0); MEAN CORPUSCULAR HGB CONC 32 g/dl (31.0-36.0); MEAN CORPUSCULAR VOLUME 93 fL (80-96); MONOCYTES # (AUTO) 0.5 K/uL (0.1-1.30); MONOCYTES % (AUTO) 7.5 % (2.0-12.0); NEUTROPHILS # (AUTO) 4.9 K/uL (1.8-8.9); PLATELET COUNT (AUTO) 216 K/uL (150-450); RED BLOOD CELL COUNT(AUTO) 3.28 MIL/uL (4.5-6.0); WHITE BLOOD COUNT (AUTO) 6.3 K/uL (4.3-11.0)
[2021-08-03] MEDS: INSULIN REGULAR, HUMAN 100 UNIT/ML 3 ML VIAL SQ PRN (09:38)
[2021-08-03 10:10] LABS: CALCIUM, SERUM 8.8 mg/dL (8.5-10.1); MAGNESIUM 2.1 mg/dL (1.8-2.4); PHOSPHORUS 5.9 mg/dL (2.5-4.9)
[2021-08-03 10:12] LABS: CREATININE 8.1 mg/dL (0.6-1.3)
--- NOTE | 2021-08-03 13:00 | NUR ---
RN NOTE PIG TAIL REMOVED FROM PT. HD WILL START SHORTLY.
--- NOTE | 2021-08-03 16:30 | NUR ---
HD DONE 1L OUT
--- NOTE | 2021-08-03 17:00 | NUR ---
NURSING NOTES TORSTNE BROWN RENVELA JUST GIVEN LATE BECAUSE PT WAS IN HD
[2021-08-03] MEDS: DEXTROSE 50%-WATER 50 ML DISP.SYRIN IV PRN (17:48)
--- NOTE | 2021-08-03 18:45 | NUR ---
RN NOTES PATIENT TRANSFERRED TO UNIT AT ROOM 315-1 VIA [facility], ACCOMPANIED BY 2 ICU NURSES. PATIENT ATTACHED TO EXTERNAL PEST TECHNICIAN W/ READING OF SR, HR IN THE LOW 60'S, NO CARDIAC DISTRESS NOTED.
[2021-08-03 19:02] LABS: ABG BASE EXCESS -5.3 mmol/L; ABG OXYGEN SATURATION 99.5 % (92.0-98.5); ABG PCO2 42.9 mmHg (35.0-45.0); ABG PH 7.304 (7.350-7.450); ABG PO2 305.4 mmHg (75.0-100.0); AaDO2 364.7 mmHg; COHb 0.3 % (0.5-1.5); MetHb 0.1 % (0.0-1.5); O2Hb 99.1 % (94.0-97.0); SITE, ABG Right Radial; VENT MODE, BG 15 LPM NRB
[2021-08-03] MEDS: ATORVASTATIN 10 MG TABLET PO SCH (21:58)
[2021-08-03] MEDS: LORAZEPAM 1 MG TABLET PO SCH (21:58)
[2021-08-04] VITALS (7 sets, daily range): BP systolic 93–139; BP diastolic 50–74
[2021-08-04] MEDS: TRAMADOL HCL 50 MG TABLET PO SCH ×2 (02:00→13:44)
--- NOTE | 2021-08-04 05:39 | NUR ---
Ending Notes: on coming report I was told earlier his Blood sugar allen t to 40 in ICU yesterday At 2200 blood sugar was 90 Being concerned about his blood sugar took it again at 0000 and now the sugar 87 patient is alert and awake X2 juice and 1/4 vup jellow given fed to patient , he is on and off cooperative. He can become verbally "angry" noted his sight is poor . needs much assiste to get about and comfortable in the bed .bed alarm in use thru the night for safety. Drasg on his right lower back s/p pigtail CDI
[2021-08-04] MEDS: BLOOD SUGAR DIAGNOSTIC 1 EACH STRIP IN SCH ×4 (06:06→22:09)
[2021-08-04 07:15] LABS: CALCIUM, SERUM 9.2 mg/dL (8.5-10.1); CREATININE 5.7 mg/dL (0.6-1.3); MAGNESIUM 2.6 mg/dL (1.8-2.4); PHOSPHORUS 4.9 mg/dL (2.5-4.9); POTASSIUM 6.1 mmol/L (3.5-5.1)
--- NOTE | 2021-08-04 07:15 | NUR ---
INSPECTING AND TESTING LEAD HAND OPENING NOTE PATIENT ON BED ASLEEP BUT RESPONSIVE TO CALL, HE IS ALERT AND ORIENTED X 2-3. 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 PATIENT IS ON ROOM AIR WITH NO SIGNS OF DISTRESS. PATIENT WITH LEFT UPPER ARM AV FISTULA WITH POSITIVE BRUIT/ THRILL. WITH RIGHT FOREARM IV ACCESS G20 ON SALINE LOCK. 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 NO SIGNS OF BLEEDING NOTED. NO COMPLAINTS OF PAIN OR DISTRESS AT THIS TIME. SAFETY MEASURES IN PLACED. CALL LIGHT WITHIN REACH. BED ON LOWEST LOCKED POSITION, SIDE RAILS UP X2. WILL CONTINUE TO MONITOR PATIENT.
[2021-08-04 07:45] LABS: BASOPHILS % (AUTO) 0.4 % (0.0-2.0); EOSINOPHILS % (AUTO) 11.7 % (0.0-6.0); HEMATOCRIT 30 % (39-51); HEMOGLOBIN 9.5 g/dL (13.5-17.5); LYMPHOCYTES # (AUTO) 0.5 K/uL (0.8-4.8); LYMPHOCYTES % (AUTO) 9.6 % (20.0-44.0); MEAN CORPUSCULAR HGB CONC 32 g/dl (31.0-36.0); MEAN CORPUSCULAR VOLUME 92 fL (80-96); MONOCYTES # (AUTO) 0.7 K/uL (0.1-1.30); MONOCYTES % (AUTO) 12.6 % (2.0-12.0); NEUTROPHILS # (AUTO) 3.7 K/uL (1.8-8.9); NEUTROPHILS % (AUTO) 65.7 % (43.0-81.0); PLATELET COUNT (AUTO) 193 K/uL (150-450); WHITE BLOOD COUNT (AUTO) 5.6 K/uL (4.3-11.0)
[2021-08-04] MEDS: PANTOPRAZOLE 40 MG TABLET.DR PO SCH (08:58)
[2021-08-04] MEDS: DILTIAZEM HCL CD 120 MG PO SCH (08:59)
[2021-08-04] MEDS: BENZTROPINE MESYLATE (1 MG) 1 MG TABLET PO SCH ×3 (08:59→18:23)
[2021-08-04] MEDS: CARVEDILOL 12.5 MG TABLET PO SCH ×2 (09:00→17:00)
[2021-08-04] MEDS: SEVELAMER CARBONATE 800 MG TABLET PO SCH ×3 (09:00→18:23)
[2021-08-04] MEDS: CHOLECALCIFEROL 1,000 UNIT TABLET (VIT D3) PO SCH (09:00)
[2021-08-04] MEDS: HALOPERIDOL 5 MG TABLET PO SCH ×3 (09:00→18:23)
[2021-08-04] MEDS: VIT B CMPLX 3/FA/VIT C/BIOTIN 1 TAB TABLET PO SCH (09:01)
--- NOTE | 2021-08-04 11:30 | NUR ---
COLLATOR NOTE PATIENT FOR HEMODIALYSIS. UNCOOPERATIVE INITIALLY, BUT AFTER SOMETIME. PATIENT STARTED TO CALM DOWN. WILL CONTINUE TO MONITOR PATIENT.
[2021-08-04] MEDS: ALBUMIN 25% 25 GM in PREMIX 1 EA IV PRN (12:03)
--- NOTE | 2021-08-04 13:44 | NUR ---
IRIDOLOGIST NOTE STILL ON HD, TOLERATED WELL. WILL CONTINUE TO MONITOR.
--- NOTE | 2021-08-04 18:57 | NUR ---
WOMEN DESIGNER CLOSING NOTE PATIENT ON BED ASLEEP BUT RESPONSIVE TO CALL, HE IS ALERT AND ORIENTED X 2-3. 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 PATIENT IS ON ROOM AIR WITH NO SIGNS OF DISTRESS. PATIENT WITH LEFT UPPER ARM AV FISTULA WITH POSITIVE BRUIT/ THRILL. WITH RIGHT FOREARM IV ACCESS G20 ON SALINE LOCK. 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 NO SIGNS OF BLEEDING NOTED. NO COMPLAINTS OF PAIN OR DISTRESS AT THIS TIME. SAFETY MEASURES IN PLACED. CALL LIGHT WITHIN REACH. BED ON LOWEST LOCKED POSITION, SIDE RAILS UP X2. WILL ENDORSE TO NEXT SHIFT FOR CONTINUITY OF CARE.
--- NOTE | 2021-08-04 19:39 | NUR ---
CELLOPHANE WORKER OPENING NOTE RECEIVED REPORT AT PATIENT'S BEDSIDE. PATIENT IS ALERT AND ORIENTED X 2-3. PATIENT IS [place] AND LEGALLY BLIND IN R EYE AND TOTALLY BLIND ON THE LEFT.NO DYSPNEA OBSERVED. RR EVEN AND UNLABORED. PATIENT WITH LEFT UPPER ARM AV FISTULA, POSITIVE BRUIT AND THRILL. R FA IV ACCESS G20 SL -- FLUSHED AND PATENT. NO S/SX OF INFILTRATION. DRESSING C/D/I. PMH OF R BKA STUMP -- INTACT, NO BREAKDOWN OBSERVED. DENIES PAIN. NAD AT THIS TIME. SAFETY MEASURES IN PLACE -- BED LOW AND LOCKED, SIDE RAILS UP X2, HOB ELEVATED TO SEMI-LORA'S POSITION. CALL LIGHT AND FREQUENTLY USED ITEMS WITHIN REACH.
[2021-08-04] MEDS: LORAZEPAM 1 MG TABLET PO SCH (22:09)
[2021-08-04] MEDS: ATORVASTATIN 10 MG TABLET PO SCH (22:09)
[2021-08-04] MEDS: INSULIN REGULAR, HUMAN 100 UNIT/ML 3 ML VIAL SQ PRN (22:10)
[2021-08-05] VITALS (7 sets, daily range): BP systolic 118–141; BP diastolic 65–79
--- NOTE | 2021-08-05 01:30 | NUR ---
PATIENT C/O ITCH AND COUGH. ADMINISTERED BENADRYL AND GUAIFENESIN PER PRN ORDER.
[2021-08-05] MEDS: diphenhydrAMINE HCL 25 MG CAPSULE PO PRN (01:47)
[2021-08-05] MEDS: GUAIFENESIN/D-METHORPHAN HB 5 ML UDC PO PRN (01:47)
[2021-08-05] MEDS: TRAMADOL HCL 50 MG TABLET PO SCH ×2 (01:47→13:25)
--- NOTE | 2021-08-05 02:30 | NUR ---
PATIENT DENIES ITCHING AND NO COUGH OBSERVED/REPORTED.
--- NOTE | 2021-08-05 05:51 | NUR ---
COMMUNICATIONS INSTRUCTOR CLOSING NOTE PATIENT IN BED DOZING INTERMITTENTLY. ALERT AND ORIENTED TO PERSON AND PLACE. TELEMETRY READING SR WITH FIRST DEGREE AV BLOCK. PATIENT SLEPT APPROXIMATELY 3 HOURS THROUGHOUT SHIFT. RESTLESS AND IRRITABLE. PATIENT ATTEMPTED TO GET OUT OF BED SEVERAL TIMES THROUGHOUT THE SHIFT, UNABLE TO REDIRECT, ATTEMPTS TO HIT AND SPIT AT STAFF. PATIENT IS [place] AND LEGALLY BLIND IN R EYE AND TOTAL BLINDNESS IN LEFT EYE. NO DYSPNEA OBSERVED. RR EVEN AND UNLABORED. PATIENT WITH LEFT UPPER ARM AV FISTULA, POSITIVE BRUIT AND THRILL. R FA IV ACCESS G20 SL. DRESSING CDI. PMH OF R BKA STUMP -- INTACT, NO BREAKDOWN OBSERVED. DENIES PAIN. NAD AT THIS TIME. SAFETY MEASURES IN PLACE -- BED LOW AND LOCKED, SIDE RAILS UP X2, HOB ELEVATED TO SEMI-LORA'S POSITION. CALL LIGHT AND FREQUENTLY USED ITEMS WITHIN REACH.
[2021-08-05] MEDS: INSULIN REGULAR, HUMAN 100 UNIT/ML 3 ML VIAL SQ PRN (06:31)
[2021-08-05] MEDS: BLOOD SUGAR DIAGNOSTIC 1 EACH STRIP IN SCH ×4 (06:31→21:59)
[2021-08-05] MEDS: PANTOPRAZOLE 40 MG TABLET.DR PO SCH (06:31)
[2021-08-05 07:11] LABS: CALCIUM, SERUM 8.6 mg/dL (8.5-10.1); CREATININE 5.1 mg/dL (0.6-1.3); MAGNESIUM 2.1 mg/dL (1.8-2.4); PHOSPHORUS 4.2 mg/dL (2.5-4.9); POTASSIUM 4.7 mmol/L (3.5-5.1)
[2021-08-05 07:15] LABS: BASOPHILS # (AUTO) 0.1 K/uL (0.0-0.2); EOSINOPHILS % (AUTO) 20.5 % (0.0-6.0); HEMATOCRIT 31 % (39-51); HEMOGLOBIN 9.7 g/dL (13.5-17.5); LYMPHOCYTES # (AUTO) 0.6 K/uL (0.8-4.8); LYMPHOCYTES % (AUTO) 10.2 % (20.0-44.0); MEAN CORPUSCULAR HGB CONC 32 g/dl (31.0-36.0); MEAN CORPUSCULAR VOLUME 94 fL (80-96); MONOCYTES # (AUTO) 0.6 K/uL (0.1-1.30); MONOCYTES % (AUTO) 11.2 % (2.0-12.0); NEUTROPHILS # (AUTO) 3.2 K/uL (1.8-8.9); NEUTROPHILS % (AUTO) 57.1 % (43.0-81.0); PLATELET COUNT (AUTO) 216 K/uL (150-450); RED BLOOD CELL COUNT(AUTO) 3.27 MIL/uL (4.5-6.0); WHITE BLOOD COUNT (AUTO) 5.6 K/uL (4.3-11.0)
--- NOTE | 2021-08-05 07:18 | NUR ---
MARBLE CUTTER OPERATOR OPENING NOTE PATIENT ON BED ASLEEP BUT RESPONSIVE TO CALL, HE IS ALERT AND ORIENTED X 2. 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 PATIENT IS ON ROOM AIR WITH NO SIGNS OF DISTRESS. PATIENT WITH LEFT UPPER ARM AV FISTULA WITH POSITIVE BRUIT/ THRILL. WITH RIGHT FOREARM IV ACCESS G20 ON SALINE LOCK. WITH STUMP ON THE RIGHT LEG POST HX OF BKA WITH NO SKIN BREAKDOWN. NO SIGNS OF BLEEDING NOTED. NO COMPLAINTS OF PAIN OR DISTRESS AT THIS TIME. SAFETY MEASURES IN PLACED. CALL LIGHT WITHIN REACH. BED ON LOWEST LOCKED POSITION, SIDE RAILS UP X2. HE DOES NOT WANT TO COOPERATE DURING ASSESSMENT BECAUSE HE WANTS TO SIT AT THE EDGE OF THE BED BUT PATIENT IS UNSAFE TO DO SO. HEALTH TEACHING DONE REGARDING SAFETY AND FALL PREVENTION. WILL CONTINUE TO MONITOR PATIENT.
[2021-08-05] MEDS: HALOPERIDOL 5 MG TABLET PO SCH ×3 (08:36→17:57)
[2021-08-05] MEDS: CHOLECALCIFEROL 1,000 UNIT TABLET (VIT D3) PO SCH (08:36)
[2021-08-05] MEDS: SEVELAMER CARBONATE 800 MG TABLET PO SCH ×3 (08:36→17:57)
[2021-08-05] MEDS: VIT B CMPLX 3/FA/VIT C/BIOTIN 1 TAB TABLET PO SCH (08:36)
[2021-08-05] MEDS: DILTIAZEM HCL CD 120 MG PO SCH (08:37)
[2021-08-05] MEDS: CARVEDILOL 12.5 MG TABLET PO SCH ×2 (08:38→17:00)
[2021-08-05] MEDS: BENZTROPINE MESYLATE (1 MG) 1 MG TABLET PO SCH ×3 (08:38→17:57)
--- NOTE | 2021-08-05 09:18 | NUR ---
ZOOLOGY TECHNICAL OFFICER NOTE PATIENT INSISTENT ON SITTING ON THE EDGE OF THE BED. PATIENT DISCOURAGED TO PREVENT FALL. PATIENT HEALTH TEACHING DONE REGARDING SAFETY AND FALL PREVENTION. VERBALIZED UNDERSTANDING. PATIENT NOTED TO BE IRRITATED/ UNHAPPY WITH NOT BEING ABLE TO SIT ON THE BED. SAFETY MEASURES ENSURED WITH SIDERAILS UP AND BED LOCKED AND ON LOWEST POSITION. BED ALARM ON AT ALL TIMES. CALL LIGHT WITHIN REACH. WILL CONTINUE TO MONITOR PATIENT.
[2021-08-05 12:34] LABS: BASOPHILS % (MANUAL) 1 % (0.0-2.0); EOSINOPHILS % (MANUAL) 12 % (0-4); LYMPHOCYTES % (MANUAL) 11 % (16-48); MONOCYTES % (MANUAL) 14 % (0-11.0); NEUTROPHILS % (MANUAL) 62 (42-76)
--- NOTE | 2021-08-05 19:11 | NUR ---
WOOD AND HARDWARE OUTFITTER CLOSING NOTE PATIENT ON BED ASLEEP BUT RESPONSIVE TO CALL, HE IS ALERT AND ORIENTED X 1. 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 PATIENT IS ON ROOM AIR WITH NO SIGNS OF DISTRESS. PATIENT WITH LEFT UPPER ARM AV FISTULA WITH POSITIVE BRUIT/ THRILL. WITH RIGHT FOREARM IV ACCESS G20 ON SALINE LOCK. WITH STUMP ON THE RIGHT LEG POST HX OF BKA WITH NO SKIN BREAKDOWN. NO SIGNS OF BLEEDING NOTED. NO COMPLAINTS OF PAIN OR DISTRESS AT THIS TIME. SAFETY MEASURES IN PLACED. CALL LIGHT WITHIN REACH. BED ON LOWEST LOCKED POSITION, SIDE RAILS UP X2. HE DOES NOT WANT TO COOPERATE DURING ASSESSMENT BECAUSE HE WANTS TO SIT AT THE EDGE OF THE BED BUT PATIENT IS UNSAFE TO DO SO. HEALTH TEACHING DONE REGARDING SAFETY AND FALL PREVENTION. WILL ENDORSE PATIENT FOR CONTINUITY OF CARE.
[2021-08-05] MEDS: ATORVASTATIN 10 MG TABLET PO SCH (21:44)
[2021-08-05] MEDS: LORAZEPAM 1 MG TABLET PO SCH (21:44)
[2021-08-06] VITALS: BP 122/71
--- NOTE | 2021-08-06 00:40 | NUR ---
Patient currently sleeping, irritable when woken up. Refused midnight vital signs. Addendum: 08/06/21 at 0139 by ARTEMIO LAKE RN wrong patient
[2021-08-06] MEDS: TRAMADOL HCL 50 MG TABLET PO SCH ×3 (02:00→13:54)
[2021-08-06 04:00] VITALS: BP 105/50
--- NOTE | 2021-08-06 06:24 | NUR ---
Patient has been A&Ox2. VSS. Has been short-tempered/irritable with staff, but able to sleep well once he became comfortable. Sr 60s on tele monitor. RFA #20G flushed and patent. Saturating 97-98% on RA. +bruit/thrill to ELVER AVF. dressing to R back c/d/i. Patient currently sleeping but easy to wake.
[2021-08-06 06:44] LABS: BASOPHILS % (AUTO) 0.4 % (0.0-2.0); EOSINOPHILS % (AUTO) 20.5 % (0.0-6.0); HEMATOCRIT 30 % (39-51); HEMOGLOBIN 9.7 g/dL (13.5-17.5); LYMPHOCYTES # (AUTO) 0.6 K/uL (0.8-4.8); LYMPHOCYTES % (AUTO) 10.8 % (20.0-44.0); MEAN CORPUSCULAR HGB CONC 32 g/dl (31.0-36.0); MEAN CORPUSCULAR VOLUME 92 fL (80-96); MONOCYTES # (AUTO) 0.5 K/uL (0.1-1.30); MONOCYTES % (AUTO) 8.4 % (2.0-12.0); NEUTROPHILS # (AUTO) 3.3 K/uL (1.8-8.9); NEUTROPHILS % (AUTO) 59.9 % (43.0-81.0); PLATELET COUNT (AUTO) 238 K/uL (150-450); RED BLOOD CELL COUNT(AUTO) 3.25 MIL/uL (4.5-6.0); WHITE BLOOD COUNT (AUTO) 5.5 K/uL (4.3-11.0)
[2021-08-06] MEDS: BLOOD SUGAR DIAGNOSTIC 1 EACH STRIP IN SCH ×4 (06:55→22:29)
[2021-08-06 07:02] LABS: CALCIUM, SERUM 8.7 mg/dL (8.5-10.1); PHOSPHORUS 4.9 mg/dL (2.5-4.9); POTASSIUM 4.6 mmol/L (3.5-5.1)
--- NOTE | 2021-08-06 07:14 | NUR ---
LABORER GOLD LEAF OPENING NOTES RECEIVED PATIENT IN BED ASLEEP, AROUSABLE BY NAME TO A/O X 2. EXTERNAL HEART MONITOR READING NSR 67. PATIENT ON ROOM AIR WITH BREATHING SYMMETRICAL AND NO S/S OF RESPIRATORY DISTRESS AT THIS TIME. R FA 20 G SALINE LOCK PATENT AND FLUSHING WELL. PATIENT WITH LEFT UPPER ARM AV FISTULA WITH POSITIVE BRUIT/ THRILL. STUMP ON THE RIGHT LEG POST HX OF BKA WITH NO SKIN BREAKDOWN. NO SIGNS OF BLEEDING NOTED. NO COMPLAINTS OF PAIN OR DISTRESS AT THIS TIME. SAFETY MEASURES IN PLACED. CALL LIGHT WITHIN REACH. BED ON LOWEST LOCKED POSITION, SIDE RAILS UP X2. WILL CONTINUE TO MONITOR.
[2021-08-06] MEDS: PANTOPRAZOLE 40 MG TABLET.DR PO SCH (07:45)
[2021-08-06 08:00] VITALS: BP 108/56
[2021-08-06] MEDS: CHOLECALCIFEROL 1,000 UNIT TABLET (VIT D3) PO SCH (08:17)
[2021-08-06] MEDS: HALOPERIDOL 5 MG TABLET PO SCH ×3 (08:17→16:43)
[2021-08-06] MEDS: VIT B CMPLX 3/FA/VIT C/BIOTIN 1 TAB TABLET PO SCH (08:17)
[2021-08-06] MEDS: SEVELAMER CARBONATE 800 MG TABLET PO SCH ×3 (08:50→16:43)
[2021-08-06] MEDS: DILTIAZEM HCL CD 120 MG PO SCH (08:52)
[2021-08-06] MEDS: CARVEDILOL 12.5 MG TABLET PO SCH ×2 (08:53→17:00)
[2021-08-06] MEDS: BENZTROPINE MESYLATE (1 MG) 1 MG TABLET PO SCH ×3 (10:01→16:43)
[2021-08-06] MEDS: INSULIN REGULAR, HUMAN 100 UNIT/ML 3 ML VIAL SQ PRN ×2 (11:46→17:09)
[2021-08-06 12:00] VITALS: BP 102/60
--- NOTE | 2021-08-06 12:30 | NUR ---
WELL DRILL OPERATOR ROTARY DRILL NOTE PATIENT RECEIVED HEMODIALYSIS TODAY WITH NO OUTPUT (CLEANSING ONLY). DRY DRESSING PLACED ON L UA BY DIALYSIS NURSE. NO ACTIVE BLEEDING NOTED. PATIENT RESTING IN BED AT THIS TIME.
[2021-08-06 16:00] VITALS: BP 107/59
--- NOTE | 2021-08-06 18:16 | NUR ---
SALES REPRESENTATIVE CHURCH FURNITURE CLOSING NOTES PATIENT IN BED AROUSABLE BY NAME TO A/O X 2, ABLE TO MAKE NEEDS KNOWN. EXTERNAL HEART MONITOR READING NSR 70. PATIENT ON ROOM AIR WITH BREATHING SYMMETRICAL AND NO S/S OF RESPIRATORY DISTRESS AT THIS TIME. R FA 20 G SALINE LOCK PATENT AND FLUSHING WELL. PATIENT WITH LEFT UPPER ARM AV FISTULA WITH POSITIVE BRUIT/ THRILL. NO COMPLAINTS OF PAIN OR DISTRESS AT THIS TIME. SAFETY MEASURES IN PLACED. CALL LIGHT WITHIN REACH. BED ON LOWEST LOCKED POSITION, SIDE RAILS UP X2. WILL ENDORSE TO HOME CARE ASSISTANT FOR MARCELO.
--- NOTE | 2021-08-06 18:32 | NUR ---
RN NOTES CHEST X-RAY DONE AT BEDSIDE THIS AFTERNOON, RESULTS STILL PENDING AT THIS TIME.
[2021-08-06 20:00] VITALS: BP 148/63
[2021-08-06] MEDS: LORAZEPAM 1 MG TABLET PO SCH (21:54)
[2021-08-06] MEDS: ATORVASTATIN 10 MG TABLET PO SCH (21:55)
[2021-08-07] VITALS: BP 125/77
[2021-08-07] MEDS: TRAMADOL HCL 50 MG TABLET PO SCH ×2 (01:02→13:29)
[2021-08-07 04:00] VITALS: BP 138/77
[2021-08-07 06:42] LABS: BASOPHILS % (AUTO) 0.6 % (0.0-2.0); CALCIUM, SERUM 8.7 mg/dL (8.5-10.1); CREATININE 5.7 mg/dL (0.6-1.3); EOSINOPHILS % (AUTO) 19.8 % (0.0-6.0); HEMATOCRIT 31 % (39-51); HEMOGLOBIN 9.9 g/dL (13.5-17.5); LYMPHOCYTES # (AUTO) 0.7 K/uL (0.8-4.8); MAGNESIUM 2.1 mg/dL (1.8-2.4); MEAN CORPUSCULAR HGB CONC 32 g/dl (31.0-36.0); MEAN CORPUSCULAR VOLUME 92 fL (80-96); MONOCYTES # (AUTO) 0.6 K/uL (0.1-1.30); MONOCYTES % (AUTO) 10.7 % (2.0-12.0); NEUTROPHILS # (AUTO) 3.4 K/uL (1.8-8.9); NEUTROPHILS % (AUTO) 57.9 % (43.0-81.0); PHOSPHORUS 3.8 mg/dL (2.5-4.9); PLATELET COUNT (AUTO) 234 K/uL (150-450); POTASSIUM 4.6 mmol/L (3.5-5.1); RED BLOOD CELL COUNT(AUTO) 3.35 MIL/uL (4.5-6.0); WHITE BLOOD COUNT (AUTO) 5.9 K/uL (4.3-11.0)
--- NOTE | 2021-08-07 06:52 | NUR ---
COFFEE ROASTER CLOSING NOTES PATIENT STILL LAYING AWAKE IN BED. A/O X 2-3. PATIENT WITH REGULAR AND UNLABORED BREATHING ON ROOM AIR. NO SIGNS AND SYMPTOMS OF DISTRESS NOTED AT THIS TIME. NO COMPLAINS OF PAIN OR DISCOMFORT AT THIS TIME. PATIENT ON TELE MONITOR READING SR @ 79 BPM. IV ACCESS RFA G #20 SL. IV ACCESS PATENT AND INTACT. SAFETY PRECAUTIONS ENFORCED WITH BED LOCKED AND AT LOWEST POSITION. SIDERAILS UP X2. CALL LIGHT WITHIN REACH AT ALL TIMES. WILL ENDORSE CONTINUITY OF CARE TO DAY SHIFT NURSE.
--- NOTE | 2021-08-07 07:15 | NUR ---
WEB MERCHANDISER OPENING NOTES RECEIVED PATIENT LAYING AWAKE IN BED. A/O X 2-3. PATIENT WITH REGULAR AND UNLABORED BREATHING ON ROOM AIR. NO SIGNS AND SYMPTOMS OF DISTRESS NOTED AT THIS TIME. NO COMPLAINS OF PAIN OR DISCOMFORT AT THIS TIME. PATIENT ON TELE MONITOR. IV ACCESS RFA G #20 SL. IV ACCESS PATENT AND INTACT. SAFETY PRECAUTIONS ENFORCED WITH BED LOCKED AND AT LOWEST POSITION. SIDERAILS UP X2. CALL LIGHT WITHIN REACH AT ALL TIMES. WILL CONTINUE TO MONITOR
[2021-08-07 08:00] VITALS: BP 110/81
[2021-08-07] MEDS: SEVELAMER CARBONATE 800 MG TABLET PO SCH ×3 (08:16→16:30)
[2021-08-07] MEDS: BLOOD SUGAR DIAGNOSTIC 1 EACH STRIP IN SCH ×4 (08:16→22:54)
[2021-08-07] MEDS: BENZTROPINE MESYLATE (1 MG) 1 MG TABLET PO SCH ×3 (08:17→16:30)
[2021-08-07] MEDS: PANTOPRAZOLE 40 MG TABLET.DR PO SCH (08:17)
[2021-08-07] MEDS: CHOLECALCIFEROL 1,000 UNIT TABLET (VIT D3) PO SCH (08:17)
[2021-08-07] MEDS: VIT B CMPLX 3/FA/VIT C/BIOTIN 1 TAB TABLET PO SCH (08:17)
[2021-08-07] MEDS: DILTIAZEM HCL CD 120 MG PO SCH (08:18)
[2021-08-07] MEDS: CARVEDILOL 12.5 MG TABLET PO SCH ×2 (08:18→16:31)
[2021-08-07] MEDS: HALOPERIDOL 5 MG TABLET PO SCH ×3 (08:22→16:30)
[2021-08-07] MEDS: INSULIN REGULAR, HUMAN 100 UNIT/ML 3 ML VIAL SQ PRN ×2 (11:18→16:56)
--- NOTE | 2021-08-07 12:02 | NUR ---
RN NOTE PATIENT REFUSED MEDICATION, EXPLAINED RISK AND BENEFITS X2, PATIENT STATED HE JUST WANTS TO REST AND WILL TAKE MEDICATION LATER TODAY. WILL CONTINUE TO MONITOR
[2021-08-07 16:00] VITALS: BP 139/78
--- NOTE | 2021-08-07 18:17 | NUR ---
TIN CONTAINER STRAIGHTENER CLOSING NOTES PATIENT LAYING AWAKE IN BED. A/O X 2-3. PATIENT WITH REGULAR AND UNLABORED BREATHING ON ROOM AIR. NO SIGNS AND SYMPTOMS OF DISTRESS NOTED AT THIS TIME. NO COMPLAINS OF PAIN OR DISCOMFORT AT THIS TIME. PATIENT ON TELE MONITOR. IV ACCESS RFA G #20 SL. IV ACCESS PATENT AND INTACT. PATIENT KEPT CLEAN AND DRY. MEDICATIONS GIVEN ORDERED. SAFETY PRECAUTIONS ENFORCED WITH BED LOCKED AND AT LOWEST POSITION. SIDERAILS UP X2. CALL LIGHT WITHIN REACH AT ALL TIMES. WILL ENDORSE TO ONCOMING SHIFT
--- NOTE | 2021-08-07 19:15 | NUR ---
COMMERCIAL ENERGY AUDITOR OPENING NOTES RECEIVED PATIENT LAYING AWAKE IN BED. A/O X 2-3. PATIENT WITH REGULAR AND UNLABORED BREATHING ON ROOM AIR. NO SIGNS AND SYMPTOMS OF DISTRESS NOTED AT THIS TIME. NO COMPLAINS OF PAIN OR DISCOMFORT AT THIS TIME. PATIENT ON TELE MONITOR READING SR @ 90 BPM. IV ACCESS RFA G #20 SL. IV ACCESS PATENT AND INTACT. SAFETY PRECAUTIONS ENFORCED WITH BED LOCKED AND AT LOWEST POSITION. SIDERAILS UP X2. CALL LIGHT WITHIN REACH AT ALL TIMES. WILL CONTINUE TO MONITOR PATIENT.
[2021-08-07] MEDS: LORAZEPAM 1 MG TABLET PO SCH (22:32)
[2021-08-07] MEDS: ATORVASTATIN 10 MG TABLET PO SCH (22:33)
[2021-08-07] MEDS: diphenhydrAMINE HCL 25 MG CAPSULE PO PRN (22:57)
[2021-08-08] VITALS: BP 122/69
[2021-08-08] MEDS: TRAMADOL HCL 50 MG TABLET PO SCH ×2 (01:21→13:51)
[2021-08-08 04:00] VITALS: BP 128/69
[2021-08-08 06:20] LABS: BASOPHILS % (AUTO) 0.7 % (0.0-2.0); EOSINOPHILS % (AUTO) 22.5 % (0.0-6.0); HEMATOCRIT 30 % (39-51); HEMOGLOBIN 9.7 g/dL (13.5-17.5); LYMPHOCYTES # (AUTO) 0.8 K/uL (0.8-4.8); LYMPHOCYTES % (AUTO) 13.8 % (20.0-44.0); MEAN CORPUSCULAR HGB CONC 32 g/dl (31.0-36.0); MEAN CORPUSCULAR VOLUME 92 fL (80-96); MONOCYTES # (AUTO) 0.5 K/uL (0.1-1.30); NEUTROPHILS # (AUTO) 3.1 K/uL (1.8-8.9); PLATELET COUNT (AUTO) 259 K/uL (150-450); RED BLOOD CELL COUNT(AUTO) 3.25 MIL/uL (4.5-6.0); WHITE BLOOD COUNT (AUTO) 5.8 K/uL (4.3-11.0)
[2021-08-08] MEDS: BLOOD SUGAR DIAGNOSTIC 1 EACH STRIP IN SCH ×4 (06:33→22:26)
--- NOTE | 2021-08-08 06:47 | NUR ---
TREE CHIPPER CLOSING NOTES PATIENT STILL LAYING AWAKE IN BED. A/O X 2-3. PATIENT WITH REGULAR AND UNLABORED BREATHING ON ROOM AIR. NO SIGNS AND SYMPTOMS OF DISTRESS NOTED AT THIS TIME. NO COMPLAINS OF PAIN OR DISCOMFORT AT THIS TIME. PATIENT ON TELE MONITOR READING SR WITH ST DEPRESSION @ 79 BPM. IV ACCESS RFA G #20 SL. IV ACCESS PATENT AND INTACT. SAFETY PRECAUTIONS ENFORCED WITH BED LOCKED AND AT LOWEST POSITION. SIDERAILS UP X2. CALL LIGHT WITHIN REACH AT ALL TIMES. WILL ENDORSE CONTINUITY OF CARE TO DAY SHIFT NURSE.
[2021-08-08 07:10] LABS: CALCIUM, SERUM 8.7 mg/dL (8.5-10.1); MAGNESIUM 2.1 mg/dL (1.8-2.4); PHOSPHORUS 4.2 mg/dL (2.5-4.9); POTASSIUM 4.6 mmol/L (3.5-5.1)
[2021-08-08 07:19] LABS: CREATININE 7.7 mg/dL (0.6-1.3)
[2021-08-08 08:00] VITALS: BP 105/71
[2021-08-08] MEDS: CARVEDILOL 12.5 MG TABLET PO SCH ×2 (09:00→17:26)
[2021-08-08] MEDS: DILTIAZEM HCL CD 120 MG PO SCH (09:00)
[2021-08-08] MEDS: VIT B CMPLX 3/FA/VIT C/BIOTIN 1 TAB TABLET PO SCH (09:26)
[2021-08-08] MEDS: PANTOPRAZOLE 40 MG TABLET.DR PO SCH (09:26)
[2021-08-08] MEDS: HALOPERIDOL 5 MG TABLET PO SCH ×3 (09:26→17:26)
[2021-08-08] MEDS: BENZTROPINE MESYLATE (1 MG) 1 MG TABLET PO SCH ×3 (09:26→17:26)
[2021-08-08] MEDS: CHOLECALCIFEROL 1,000 UNIT TABLET (VIT D3) PO SCH (09:26)
[2021-08-08] MEDS: SEVELAMER CARBONATE 800 MG TABLET PO SCH ×3 (09:26→17:25)
[2021-08-08 10:34] LABS: EOSINOPHILS % (MANUAL) 18 % (0-4); LYMPHOCYTES % (MANUAL) 18 % (16-48); MONOCYTES % (MANUAL) 4 % (0-11.0); NEUTROPHILS % (MANUAL) 60 (42-76)
[2021-08-08 12:00] VITALS: BP 131/76
[2021-08-08 16:00] VITALS: BP 130/82
[2021-08-08 20:00] VITALS: BP 145/71
--- NOTE | 2021-08-08 20:00 | NUR ---
MS/TELE/RN RECEIVED PATIENT AWAKE, ALERT, ORIENTED, COMFORTABLE, NO C/O PAIN, NO DISTRESS NOTED, CALL LIGHT IN REACH, FALL PRECAUTIONS INSTITUTED, WILL MONITOR.
[2021-08-08] MEDS: ATORVASTATIN 10 MG TABLET PO SCH (22:25)
[2021-08-08] MEDS: LORAZEPAM 1 MG TABLET PO SCH (22:25)
[2021-08-09] VITALS: BP 127/71
--- NOTE | 2021-08-09 00:43 | NUR ---
MS/TELE/RN PATIENT IS SLEEPING AT THIS TIME, APPEAR COMFORTABLE, NO SIGNS OF DISTRESS NOTED, CALL LIGHT IN REACH. WILL MONITOR.
[2021-08-09] MEDS: TRAMADOL HCL 50 MG TABLET PO SCH ×2 (02:00→13:28)
[2021-08-09 04:00] VITALS: BP 116/49
--- NOTE | 2021-08-09 05:00 | NUR ---
MS/TELE/RN MORNING CARE WAS DONE, TOTAL LINEN CARE RENDERED, GOOD SKIN CARE DONE, REPOSITIONED TO COMFORT. WILL MONITOR.
--- NOTE | 2021-08-09 06:42 | NUR ---
MS/TELE/RN PATIENT IS AWAKE, ALERT, ORIENTED, NO CHANGE IN CONDITION. WILL CONTINUE TO MONITOR.
[2021-08-09 06:44] LABS: BASOPHILS % (AUTO) 0.4 % (0.0-2.0); EOSINOPHILS % (AUTO) 20.1 % (0.0-6.0); HEMATOCRIT 31 % (39-51); HEMOGLOBIN 10.2 g/dL (13.5-17.5); LYMPHOCYTES # (AUTO) 0.7 K/uL (0.8-4.8); LYMPHOCYTES % (AUTO) 10.3 % (20.0-44.0); MEAN CORPUSCULAR HGB CONC 33 g/dl (31.0-36.0); MEAN CORPUSCULAR VOLUME 91 fL (80-96); MONOCYTES # (AUTO) 0.5 K/uL (0.1-1.30); MONOCYTES % (AUTO) 7.6 % (2.0-12.0); NEUTROPHILS # (AUTO) 4.4 K/uL (1.8-8.9); NEUTROPHILS % (AUTO) 61.6 % (43.0-81.0); PLATELET COUNT (AUTO) 290 K/uL (150-450); RED BLOOD CELL COUNT(AUTO) 3.38 MIL/uL (4.5-6.0); WHITE BLOOD COUNT (AUTO) 7.2 K/uL (4.3-11.0)
[2021-08-09 07:21] LABS: CALCIUM, SERUM 9.1 mg/dL (8.5-10.1); POTASSIUM 5.3 mmol/L (3.5-5.1)
--- NOTE | 2021-08-09 07:38 | NUR ---
RN OPENING NOTES PATIENT AWAKE IN BED RESTING, A/O X2. NO S/S OF PAIN NOTED AT THIS TIME. PATIENT ON ROOM AIR, NO DISTRESS OR SHORTNESS OF BREATH. IV ACCESS RFA #20G INTACT, PATENT AND FLUSHING WELL. PATIENT HAS AN EXTERNAL SENIOR SOFTWARE ENGINEER ANALYTICS CURRENT READING OF S.R. FALL AND SAFETY MEASURES IN PLACE, BED ALARM ON, BED IN LOW AND LOCK POSITION, CALL LIGHT AND TABLE WITHIN EASY REACH, SIDE RAILS UP X2. WILL CONTINUE TO MONITOR.
[2021-08-09 08:36] VITALS: BP 130/79
[2021-08-09] MEDS: SEVELAMER CARBONATE 800 MG TABLET PO SCH ×3 (09:31→17:44)
[2021-08-09] MEDS: CHOLECALCIFEROL 1,000 UNIT TABLET (VIT D3) PO SCH (09:31)
[2021-08-09] MEDS: VIT B CMPLX 3/FA/VIT C/BIOTIN 1 TAB TABLET PO SCH (09:31)
[2021-08-09] MEDS: BLOOD SUGAR DIAGNOSTIC 1 EACH STRIP IN SCH ×3 (09:31→17:42)
[2021-08-09] MEDS: BENZTROPINE MESYLATE (1 MG) 1 MG TABLET PO SCH ×3 (09:31→17:44)
[2021-08-09] MEDS: CARVEDILOL 12.5 MG TABLET PO SCH ×2 (09:32→17:44)
[2021-08-09] MEDS: DILTIAZEM HCL CD 120 MG PO SCH (09:32)
[2021-08-09] MEDS: PANTOPRAZOLE 40 MG TABLET.DR PO SCH (09:33)
[2021-08-09] MEDS: HALOPERIDOL 5 MG TABLET PO SCH ×3 (09:33→17:44)
--- NOTE | 2021-08-09 10:00 | NUR ---
RN NOTE LAB CALLED PATIENT HAVE A LAB VALUE OF CREATININE OF 9.4. PATIENT IS GOING TO HAVE DIALYSIS TODAY. CHARGE NURSE AWARE.
[2021-08-09 10:09] LABS: CREATININE 9.4 mg/dL (0.6-1.3)
[2021-08-09 12:48] VITALS: BP 112/71
[2021-08-09 16:11] VITALS: BP 100/70
[2021-08-09 18:12] LABS: LYMPHOCYTES % (MANUAL) 12 % (16-48); NEUTROPHILS % (MANUAL) 66 (42-76)
[2021-08-09 18:13] LABS: EOSINOPHILS % (MANUAL) 15 % (0-4); MONOCYTES % (MANUAL) 7 % (0-11.0)
--- NOTE | 2021-08-09 18:50 | NUR ---
RN CLOSING NOTES PATIENT AWAKE IN BED RESTING, A/O X2. NO S/S OF PAIN NOTED AT THIS TIME. PATIENT ON ROOM AIR, NO DISTRESS OR SHORTNESS OF BREATH. IV ACCESS RFA #20G INTACT, PATENT AND FLUSHING WELL. PATIENT HAS AN EXTERNAL LITIGATION ATTORNEY CURRENT READING OF S.R. AND HR OF 73. PATIENT HAD DIALYSIS TODAY AT 13:15 AND OUTPUT OF 1400ML. FALL AND SAFETY MEASURES IN PLACE, BED ALARM ON, BED IN LOW AND LOCK POSITION, CALL LIGHT AND TABLE WITHIN EASY REACH, SIDE RAILS UP X2. WILL ENDORSE TO NATIONAL SALES.
[2021-08-09 20:00] VITALS: BP 128/70
[2021-08-09] MEDS: ATORVASTATIN 10 MG TABLET PO SCH (22:00)
[2021-08-09] MEDS: LORAZEPAM 1 MG TABLET PO SCH (22:00)
[2021-08-10] VITALS: BP 131/72
[2021-08-10] MEDS: TRAMADOL HCL 50 MG TABLET PO SCH ×2 (02:00→16:26)
[2021-08-10] MEDS: BLOOD SUGAR DIAGNOSTIC 1 EACH STRIP IN SCH ×5 (02:07→22:30)
[2021-08-10 04:00] VITALS: BP 106/69
--- NOTE | 2021-08-10 07:11 | NUR ---
MS/TELE/RN I HAVE BEEN MONITORING THIS PATIENT SINCE 02:00 WHEN HIS RHYTHM CONVERTED TO AFIB WITH HR GOING UP AND DOWN AND THE HIGHEST WAS 145 AT 0630, HR 115, BP 130/72, ASYMPTOMATIC. NOTIFIED ANITHA PIERSON NP, PER ANITHA, MONITOR FOR NOW AND GIVE THE CARDIZEM AND COREG TODAY. CURRENTLY, PATIENT IS AWAKE, COMFORTABLE, NO DISTRESS NOTED, ALL NEEDS ATTENDED, WILL ENDORSE.
[2021-08-10 08:00] VITALS: BP 116/68
--- NOTE | 2021-08-10 08:04 | NUR ---
RN OPENING NOTE RECEIVED PATIENT IN BED, AO X 1-2, IN NO ACUTE DISTRESS AT THIS TIME. SATURATION AT 98% ON ROOM AIR. SKIN IS WARM TO TOUCH, KEEP CLEAN/DRY, INTACT IV AND FLUSHING WELL. NOTED PATIENT RECURRENCE AFIB REPORTED DOOR FITTER. INFORMED DR. DENSON. SAFETY MEASURES IMPLEMENTED. PATIENT BED ALARM IS ON. HEAD OF BED ELEVATED. BED IS LOCKED, IN LOWEST POSITION AND SIDE RAILS UP. CALL LIGHT WITHIN REACH OF THE PATIENT. WILL CONTINUE TO MONITOR AND REASSESS FOR ANY CHANGES.
[2021-08-10] MEDS: PANTOPRAZOLE 40 MG TABLET.DR PO SCH (08:21)
[2021-08-10] MEDS: HALOPERIDOL 5 MG TABLET PO SCH ×3 (08:21→16:24)
[2021-08-10] MEDS: BENZTROPINE MESYLATE (1 MG) 1 MG TABLET PO SCH ×3 (08:21→16:25)
[2021-08-10] MEDS: VIT B CMPLX 3/FA/VIT C/BIOTIN 1 TAB TABLET PO SCH (08:21)
[2021-08-10] MEDS: SEVELAMER CARBONATE 800 MG TABLET PO SCH ×3 (08:21→16:24)
[2021-08-10] MEDS: CARVEDILOL 12.5 MG TABLET PO SCH ×2 (08:22→16:25)
[2021-08-10] MEDS: CHOLECALCIFEROL 1,000 UNIT TABLET (VIT D3) PO SCH (08:22)
[2021-08-10] MEDS: DILTIAZEM HCL CD 120 MG PO SCH (08:22)
[2021-08-10] MEDS: INSULIN REGULAR, HUMAN 100 UNIT/ML 3 ML VIAL SQ PRN (12:05)
[2021-08-10 16:00] VITALS: BP 121/72
--- NOTE | 2021-08-10 17:02 | NUR ---
PATIENT BACK TO [facility], GIVEN DISCHARGE INSTRUCTION TO PATIENT. RETURNED ALL HOME MEDS. PATIENT DENIES ALL DISTRESS, IN STABLE CONDITION AND LEFT FACILITY ACCOMPANIED BY STAFF TO THE [facility]. PICTURES TAKEN. Addendum: 08/10/21 at 1746 by ENRIQUE FRANCOIS RN Error
--- NOTE | 2021-08-10 17:44 | NUR ---
RN CLOSING NOTE PATIENT IN BED, ABLE TO RESPONDS ALL STIMULI. NO ACUTE DISTRESS OBSERVED. RESPIRATORY AKIN AND UNLABORED ON ROOM AIR, NO SOB. SKIN IS WARM TO TOUCH, KEEP CLEAN/DRY, INTACT IV SITE. KEPT REMAINS ELEVATED HOB FOR ENSURE AIRWAY AND ASPIRATION PRECAUTION, ALSO LOWER POSITION OF THE BED FOR SAFETY. CALL LIGHT WITHIN REACH, ALL NEED MET. WILL ENDORSE HEAVY MOBILE EQUIPMENT REPAIRER.
[2021-08-10 20:00] VITALS: BP 127/66
--- NOTE | 2021-08-10 20:00 | NUR ---
MS/TELE/RN PATIENT IS AWAKE, ALERT, ORIENTED, COMFORTABLE, NO C/O PAIN, NO DISTRESS NOTED, CALL LIGHT IN REACH. WILL MONITOR.
[2021-08-10] MEDS: ATORVASTATIN 10 MG TABLET PO SCH (22:29)
[2021-08-10] MEDS: LORAZEPAM 1 MG TABLET PO SCH (22:30)
[2021-08-11] VITALS: BP 99/45
[2021-08-11] MEDS: TRAMADOL HCL 50 MG TABLET PO SCH ×2 (02:00→13:01)
[2021-08-11 04:00] VITALS: BP 130/71
--- NOTE | 2021-08-11 06:02 | NUR ---
MS/TELE/RN MORNING CARE WAS DONE, TOTAL LINEN CHANGE WAS RENDERED, REPOSITIONED TO COMFORT, PATIENT HAS NO CHANGE IN CONDITION AT THIS TIME, ALL NEEDS ATTENDED AT THIS TIME, WILL CONTINUE TO MONITOR.
[2021-08-11] MEDS: BLOOD SUGAR DIAGNOSTIC 1 EACH STRIP IN SCH ×4 (06:14→21:14)
[2021-08-11 06:44] LABS: BASOPHILS # (AUTO) 0.1 K/uL (0.0-0.2); BASOPHILS % (AUTO) 0.9 % (0.0-2.0); EOSINOPHILS % (AUTO) 23.7 % (0.0-6.0); HEMATOCRIT 32 % (39-51); HEMOGLOBIN 10.4 g/dL (13.5-17.5); LYMPHOCYTES # (AUTO) 0.9 K/uL (0.8-4.8); MEAN CORPUSCULAR HGB CONC 32 g/dl (31.0-36.0); MEAN CORPUSCULAR VOLUME 92 fL (80-96); MONOCYTES # (AUTO) 0.6 K/uL (0.1-1.30); MONOCYTES % (AUTO) 9.3 % (2.0-12.0); NEUTROPHILS # (AUTO) 3.5 K/uL (1.8-8.9); NEUTROPHILS % (AUTO) 53.1 % (43.0-81.0); PLATELET COUNT (AUTO) 269 K/uL (150-450); RED BLOOD CELL COUNT(AUTO) 3.49 MIL/uL (4.5-6.0); WHITE BLOOD COUNT (AUTO) 6.6 K/uL (4.3-11.0)
[2021-08-11 06:57] LABS: CALCIUM, SERUM 9.3 mg/dL (8.5-10.1); POTASSIUM 5.2 mmol/L (3.5-5.1)
[2021-08-11 07:43] LABS: CREATININE 8.8 mg/dL (0.6-1.3)
--- NOTE | 2021-08-11 07:53 | NUR ---
RN OPENING NOTE RECEIVED PATIENT IN BED, AO X 1-2, IN NO ACUTE DISTRESS AT THIS TIME. RESPIRATORY EVEN AND UNLABORED SATURATION AT 97% ON ROOM AIR. SKIN IS WARM TO TOUCH, KEEP CLEAN/DRY, INTACT IV AND FLUSHING WELL. SAFETY MEASURES IMPLEMENTED. PATIENT BED ALARM IS ON. HEAD OF BED ELEVATED. BED IS LOCKED, IN LOWEST POSITION AND SIDE RAILS UP. CALL LIGHT WITHIN REACH OF THE PATIENT. WILL CONTINUE TO MONITOR AND REASSESS FOR ANY CHANGES.
[2021-08-11 08:00] VITALS: BP 118/61
[2021-08-11] MEDS: VIT B CMPLX 3/FA/VIT C/BIOTIN 1 TAB TABLET PO SCH (08:25)
[2021-08-11] MEDS: PANTOPRAZOLE 40 MG TABLET.DR PO SCH (08:26)
[2021-08-11] MEDS: CHOLECALCIFEROL 1,000 UNIT TABLET (VIT D3) PO SCH (08:26)
[2021-08-11] MEDS: SEVELAMER CARBONATE 800 MG TABLET PO SCH ×3 (08:26→17:00)
[2021-08-11] MEDS: HALOPERIDOL 5 MG TABLET PO SCH ×3 (08:26→17:00)
[2021-08-11] MEDS: CARVEDILOL 12.5 MG TABLET PO SCH ×2 (08:26→17:00)
[2021-08-11] MEDS: BENZTROPINE MESYLATE (1 MG) 1 MG TABLET PO SCH ×3 (08:26→17:01)
[2021-08-11] MEDS: DILTIAZEM HCL CD 120 MG PO SCH (08:27)
[2021-08-11 12:00] VITALS: BP 133/66
--- NOTE | 2021-08-11 12:21 | NUR ---
PATIENT BS 152 MG/DL AT 1200 BUT POOR APPETITE, WILL HOLD INSULIN AT THIS TIME.
[2021-08-11 16:28] LABS: EOSINOPHILS % (MANUAL) 28 % (0-4); LYMPHOCYTES % (MANUAL) 14 % (16-48); MONOCYTES % (MANUAL) 5 % (0-11.0); NEUTROPHILS % (MANUAL) 53 (42-76)
--- NOTE | 2021-08-11 18:54 | NUR ---
RN CLOSING NOTE PATIENT IN BED, ABLE TO RESPONDS ALL STIMULI. IN NO ACUTE DISTRESS OBSERVED. RESPIRATORY AKIN AND UNLABORED ON ROOM AIR, NO SOB. SKIN IS WARM TO TOUCH, KEEP CLEAN/DRY, INTACT IV SITE. KEPT REMAINS ELEVATED HOB FOR ENSURE AIRWAY AND ASPIRATION PRECAUTION, ALSO LOWER POSITION OF THE BED FOR SAFETY. CALL LIGHT WITHIN REACH, ALL NEED MET. WILL ENDORSE CONCRETE MIXER TRUCK DRIVER.
[2021-08-11 20:00] VITALS: BP 135/71
[2021-08-11] MEDS: LORAZEPAM 1 MG TABLET PO SCH (21:14)
[2021-08-11] MEDS: ATORVASTATIN 10 MG TABLET PO SCH (21:14)
[2021-08-12] VITALS: BP 111/72
[2021-08-12] MEDS: TRAMADOL HCL 50 MG TABLET PO SCH ×2 (01:48→13:12)
[2021-08-12 04:00] VITALS: BP 123/60
[2021-08-12] MEDS: BLOOD SUGAR DIAGNOSTIC 1 EACH STRIP IN SCH ×4 (06:33→21:08)
--- NOTE | 2021-08-12 06:41 | NUR ---
DOCK CLERK NOTES AWAKE & RESPONSIVE. NOT IN ANY DISTRESS. NO SOB NOTED. DENIES ANY PAIN OR DISCOMFORT AT THIS TIME. ON TELE AFIB @ 90S WITH IV-HL PATENT & INTACT. AM CARE DONE. MONITORED ACCORDINGLY. CALL LIGHT WITHIN REACH. BED IN LOWEST POSITION. SR UP X 3 WITH BED ALARM ON FOR SAFETY. WILL ENDORSE TO NEXT SHIFT.
--- NOTE | 2021-08-12 07:55 | NUR ---
RN NOTES PATIENT SEEN BY DR. GALDAMEZ TODAY AND INFORMED ABOUT PATIENT'S COMPLAIN OF L HIP PAIN W/ ORDER FOR XRAY NOTED.
[2021-08-12 08:21] VITALS: BP 116/81
[2021-08-12] MEDS: CHOLECALCIFEROL 1,000 UNIT TABLET (VIT D3) PO SCH (08:31)
[2021-08-12] MEDS: DILTIAZEM HCL CD 120 MG PO SCH (08:31)
[2021-08-12] MEDS: HALOPERIDOL 5 MG TABLET PO SCH ×3 (08:31→16:40)
[2021-08-12] MEDS: SEVELAMER CARBONATE 800 MG TABLET PO SCH ×3 (08:31→16:40)
[2021-08-12] MEDS: ACETAMINOPHEN 325 MG TABLET PO PRN (08:32)
[2021-08-12] MEDS: BENZTROPINE MESYLATE (1 MG) 1 MG TABLET PO SCH ×3 (08:32→16:40)
[2021-08-12] MEDS: PANTOPRAZOLE 40 MG TABLET.DR PO SCH (08:32)
[2021-08-12] MEDS: CARVEDILOL 12.5 MG TABLET PO SCH ×2 (08:32→16:39)
[2021-08-12] MEDS: VIT B CMPLX 3/FA/VIT C/BIOTIN 1 TAB TABLET PO SCH (08:33)
--- NOTE | 2021-08-12 10:33 | NUR ---
RN NOTES TWISTING FRAME CHANGER AT BEDSIDE FOR L HIP X-RAY. PER TWISTING FRAME CHANGER, PATIENT WAS UNCOOPERATIVE AND WON'T STAY STILL DURING THE SCAN, UNABLE TO OBTAIN DECENT PICTURES.
[2021-08-12 16:13] VITALS: BP 95/56
[2021-08-12] MEDS: INSULIN REGULAR, HUMAN 100 UNIT/ML 3 ML VIAL SQ PRN ×2 (16:51→21:11)
--- NOTE | 2021-08-12 18:36 | NUR ---
RN NOTES PROSPECTING OBSERVER AT BEDSIDE, ABLE TO DO X-RAY OF LEFT HIP.
--- NOTE | 2021-08-12 19:31 | NUR ---
RN OPENING NOTES RECEIVED PT IN BED, ASLEEP. AOx2, ABLE TO MAKE NEEDS KNOWN. ON RA AND TOLERATING WELL. NO SOB NOTED. NO S/SX OF RESPIRATORY DISTRESS NOTED. IV ACCESS IN R WRIST #22. IV IS INTACT, PATENT, AND FLUSHING WELL. SAFETY PRECAUTIONS IN PLACE: BED IN LOWEST, LOCKED POSITION, SIDERAILS UPx2, AND BRAKES ON. CALL LIGHT AND TABLE WITHIN REACH. WILL CONTINUE TO MONITOR.
[2021-08-12 20:00] VITALS: BP 101/70
[2021-08-12] MEDS: LORAZEPAM 1 MG TABLET PO SCH (21:08)
[2021-08-12] MEDS: ATORVASTATIN 10 MG TABLET PO SCH (21:08)
[2021-08-13] MEDS: TRAMADOL HCL 50 MG TABLET PO SCH ×2 (02:00→14:46)
[2021-08-13 03:31] LABS: BASOPHILS # (AUTO) 0.1 K/uL (0.0-0.2); BASOPHILS % (AUTO) 0.9 % (0.0-2.0); CALCIUM, SERUM 9.1 mg/dL (8.5-10.1); EOSINOPHILS % (AUTO) 24.3 % (0.0-6.0); HEMATOCRIT 33 % (39-51); HEMOGLOBIN 10.7 g/dL (13.5-17.5); LYMPHOCYTES # (AUTO) 0.9 K/uL (0.8-4.8); LYMPHOCYTES % (AUTO) 12.8 % (20.0-44.0); MAGNESIUM 2.2 mg/dL (1.8-2.4); MEAN CORPUSCULAR HGB CONC 32 g/dl (31.0-36.0); MEAN CORPUSCULAR VOLUME 92 fL (80-96); MONOCYTES # (AUTO) 0.6 K/uL (0.1-1.30); MONOCYTES % (AUTO) 7.8 % (2.0-12.0); NEUTROPHILS # (AUTO) 3.9 K/uL (1.8-8.9); NEUTROPHILS % (AUTO) 54.2 % (43.0-81.0); PHOSPHORUS 4.3 mg/dL (2.5-4.9); PLATELET COUNT (AUTO) 210 K/uL (150-450); POTASSIUM 4.8 mmol/L (3.5-5.1); RED BLOOD CELL COUNT(AUTO) 3.64 MIL/uL (4.5-6.0); WHITE BLOOD COUNT (AUTO) 7.2 K/uL (4.3-11.0)
[2021-08-13 03:32] LABS: CREATININE 8.2 mg/dL (0.6-1.3)
[2021-08-13 05:30] LABS: EOSINOPHILS % (MANUAL) 27 % (0-4); LYMPHOCYTES % (MANUAL) 15 % (16-48); MONOCYTES % (MANUAL) 3 % (0-11.0); NEUTROPHILS % (MANUAL) 55 (42-76)
[2021-08-13] MEDS: BLOOD SUGAR DIAGNOSTIC 1 EACH STRIP IN SCH ×4 (06:36→21:18)
--- NOTE | 2021-08-13 06:44 | NUR ---
RN CLOSING NOTES PT IN BED, AWAKE. AOx2, ABLE TO MAKE NEEDS KNOWN. ON RA AND TOLERATING WELL. NO SOB NOTED. NO S/SX OF RESPIRATORY DISTRESS NOTED. IV ACCESS IN R WRIST #22. IV IS INTACT, PATENT, AND FLUSHING WELL. ALL NEEDS MET. PT KEPT CLEAN AND DRY. SAFETY PRECAUTIONS IN PLACE: BED IN LOWEST, LOCKED POSITION, SIDERAILS UPx2, AND BRAKES ON. CALL LIGHT AND TABLE WITHIN REACH. WILL ENDORSE TO ONCOMING SHIFT FOR MARCELO.
[2021-08-13 08:00] VITALS: BP 103/65
[2021-08-13] MEDS: CARVEDILOL 12.5 MG TABLET PO SCH ×2 (09:00→17:00)
[2021-08-13] MEDS: DILTIAZEM HCL CD 120 MG PO SCH (09:00)
[2021-08-13] MEDS ORDERED: BENZ1TAB7 PO (09:34)
[2021-08-13] MEDS ORDERED: HALO5TAB8 PO (09:34)
[2021-08-13] MEDS ORDERED: DILT120C87 PO (09:34)
[2021-08-13] MEDS: HALOPERIDOL 5 MG TABLET PO SCH ×3 (09:58→18:01)
[2021-08-13] MEDS: BENZTROPINE MESYLATE (1 MG) 1 MG TABLET PO SCH ×3 (09:58→18:01)
[2021-08-13] MEDS: VIT B CMPLX 3/FA/VIT C/BIOTIN 1 TAB TABLET PO SCH (09:58)
[2021-08-13] MEDS: SEVELAMER CARBONATE 800 MG TABLET PO SCH ×3 (09:58→18:01)
[2021-08-13] MEDS: CHOLECALCIFEROL 1,000 UNIT TABLET (VIT D3) PO SCH (09:58)
[2021-08-13] MEDS: PANTOPRAZOLE 40 MG TABLET.DR PO SCH (10:01)
[2021-08-13] MEDS: ACETAMINOPHEN 325 MG TABLET PO PRN (10:11)
[2021-08-13] MEDS: INSULIN REGULAR, HUMAN 100 UNIT/ML 3 ML VIAL SQ PRN (13:58)
[2021-08-13 16:00] VITALS: BP 103/65
--- NOTE | 2021-08-13 18:31 | NUR ---
received pt. in am alert and oriented x2.skin warm and dry.for dialysis today,so heart meds not given.dyed yarn operator here and beginning dialysis.pt.initially refusing.agressive physically at times.poor appetite @ dinner and bgl low ,refusing oj,so apple juice given with sugar pkt.
--- NOTE | 2021-08-13 19:30 | NUR ---
MS RN NOTES RECEIVED ON BED,HD TREATMENT IN PROGRESS,HD NURSE AT BEDSIDE.A/O X2,LEGALLY BLIND,LEFT BKA,ASSIST WITH ADL'S,FALL RISK,BED ON LOWEST POSITION AND LOCKED,CALL LIGHT IN REACH,NEEDS ANTICIPATED.
[2021-08-13 20:00] VITALS: BP 92/48
--- NOTE | 2021-08-13 21:00 | NUR ---
MS RN NOTES HEMODIALYSIS TREATMENT COMPLETED 3 HOURS TOLERATED WELL.TAKEN OUT 1.5 LITERS.
--- NOTE | 2021-08-13 21:15 | NUR ---
MS RN NOTES APPEARS RESTLESS,DUE ATIVAN 0.5 MG PO GIVEN SCHEDULED.
[2021-08-13] MEDS: LORAZEPAM 1 MG TABLET PO SCH (21:23)
[2021-08-13] MEDS: ATORVASTATIN 10 MG TABLET PO SCH (21:23)
--- NOTE | 2021-08-13 21:30 | NUR ---
MS RN NOTES ACCU-CHECK BLOOD SUGAR CHECK 94,NO INSULIN COVERAGE.
--- NOTE | 2021-08-14 02:00 | NUR ---
MS RN NOTES DUE ULTRAM 50MG PO GIVEN SCHEDULED.
[2021-08-14] MEDS: TRAMADOL HCL 50 MG TABLET PO SCH ×2 (02:21→14:00)
--- NOTE | 2021-08-14 05:00 | NUR ---
MS RN NOTES SLEEPING THIS TIME.
--- NOTE | 2021-08-14 05:30 | NUR ---
MS RN NOTES MORNING CARE RENDERED BY SEB MCLAUGHLIN,NO DISTRESS.
--- NOTE | 2021-08-14 06:00 | NUR ---
MS RN NOTES ACCU-CHECK BLOOD SUGAR CHECK 123,NO INSULIN COVERAGE
[2021-08-14] MEDS: BLOOD SUGAR DIAGNOSTIC 1 EACH STRIP IN SCH ×4 (06:13→23:00)
--- NOTE | 2021-08-14 06:34 | NUR ---
MS RN NOTES ON BED SLEEPING AROUSABLE TO VERBAL STIMULI,NO SOB,HD TOLERATED WELL.D/C PLANNING TO [facility],AWAITING FOR ACCEPTANCE,BEDHOLD .WILL ENDORSE TO DAY NURSE FOR MARCELO.
[2021-08-14] MEDS: PANTOPRAZOLE 40 MG TABLET.DR PO SCH (07:33)
--- NOTE | 2021-08-14 07:46 | NUR ---
MS RN OPENING NOTES PT IN BED, AWAKE. AOx2, ABLE TO MAKE NEEDS KNOWN. ON RA AND TOLERATING WELL. NO SOB NOTED. NO S/SX OF RESPIRATORY DISTRESS NOTED. IV ACCESS IN R WRIST #22. IV IS INTACT, PATENT, AND FLUSHING WELL. SAFETY PRECAUTIONS IN PLACE: BED IN LOWEST, LOCKED POSITION, SIDERAILS UP x2, AND BRAKES ON. CALL LIGHT AND TABLE WITHIN REACH. WILL CONTINUE TO MONITOR.
[2021-08-14] MEDS: DILTIAZEM HCL CD 120 MG PO SCH (08:45)
[2021-08-14] MEDS: CARVEDILOL 12.5 MG TABLET PO SCH ×2 (08:45→17:00)
[2021-08-14] MEDS: HALOPERIDOL 5 MG TABLET PO SCH ×3 (08:47→16:22)
[2021-08-14] MEDS: BENZTROPINE MESYLATE (1 MG) 1 MG TABLET PO SCH ×3 (08:47→16:22)
[2021-08-14] MEDS: SEVELAMER CARBONATE 800 MG TABLET PO SCH ×3 (08:47→16:22)
[2021-08-14] MEDS: CHOLECALCIFEROL 1,000 UNIT TABLET (VIT D3) PO SCH (08:47)
[2021-08-14] MEDS: VIT B CMPLX 3/FA/VIT C/BIOTIN 1 TAB TABLET PO SCH (08:47)
[2021-08-14 09:26] VITALS: BP 92/52
[2021-08-14] MEDS: INSULIN REGULAR, HUMAN 100 UNIT/ML 3 ML VIAL SQ PRN (17:32)
[2021-08-14] MEDS: ACETAMINOPHEN 325 MG TABLET PO PRN (18:15)
--- NOTE | 2021-08-14 18:16 | NUR ---
MS RN NOTES PATIENT COMPLAINT OF 3/10 LLQ ABDOMINAL PAIN AND REQUESTING MEDICATION. 650 MG ACETAMINOPHEN ADMINISTERED ORDERED. WILL CONTINUE TO MONITOR FOR S/S OF PAIN.
--- NOTE | 2021-08-14 18:30 | NUR ---
MS RN CLOSING NOTES PT IN BED, AROUSABLE VIA NAME TO A/O X 2. ABLE TO MAKE NEEDS KNOWN. ON RA AND TOLERATING WELL. NO SOB NOTED. NO S/SX OF RESPIRATORY DISTRESS NOTED. IV ACCESS IN R WRIST #22 INTACT, PATENT, AND FLUSHING WELL. SAFETY PRECAUTIONS IN PLACE: BED IN LOWEST, LOCKED POSITION, SIDERAILS UP x2, AND BRAKES ON. CALL LIGHT AND TABLE WITHIN REACH. WILL ENDORSE TO PROFESSIONAL ATHLETES COACH FOR MARCELO.
--- NOTE | 2021-08-14 19:00 | NUR ---
MS RN NOTES RECEIVED LAYING COMFORTABLY ON BED,A/O X 2-3,APPEARS SLEEPY,ABLE TO RESPOND TO SIMPLE QUESTION,BREATHING REGULAR,NOT IN ANY FORM OF DISTRESS,O2 SAT WNL LIMITS.SALINE LOCK RIGHT WRIST INTACT AND PATENT.NOTED MULTIPLE DRY WOUND WITH SCABS ON BOTH LOWER EXTREMITIES.RIGHT BKA STUMP,LEFT EYE BLIND LEGALLY.CALL LIGHT IN REACH,NEEDS ANTICIPATED.
[2021-08-14 20:00] VITALS: BP 80/60
--- NOTE | 2021-08-14 20:00 | NUR ---
MS RN NOTES BP 79/49,HR-52,RECHECKED BP MANUALLY AND IT WAS 80/60,ASYMPTOMATIC FOR HYPOTENSION,A/O X1-2,CONFUSED,TRYING TO HI THE NURSE WITH HIS LEFT HAND.
--- NOTE | 2021-08-14 20:15 | NUR ---
MS RN NOTES HOSPITALIST ANITHA MADE AWARE OF PATIENT LOW BLOOD PRESSURE,WITH ORDER TO GIVE BOLUS OF NS 250ML,AND RE CHECK BP POST BOLUS.
[2021-08-14 20:30] VITALS: BP 79/49
[2021-08-14 20:43] VITALS: BP 80/60
--- NOTE | 2021-08-14 21:25 | NUR ---
MS RN NOTES STARTED ON NS BOLUS 250ML WIDE OPEN,COMPLETED IN AN HOUR,NO SOB NOTED,REMAINS ALERT X1-2.BLOOD PRESSURE RECHECKED WAS 108/60,HR-60. HOSPITALIST ANITHA MADE AWARE,NO FURTHER ORDER,CONTINUE TO OBSERVED PATIENT STATUS.
[2021-08-14] MEDS ORDERED: IV NS 0.9% 250 ML IV ONE (21:30)
[2021-08-14] MEDS: LORAZEPAM 1 MG TABLET PO SCH (22:00)
--- NOTE | 2021-08-14 22:00 | NUR ---
MS RN NOTES ACCU-CHECK BLOOD SUGAR CHECK 117,NO INSULIN COVERAGE.
[2021-08-14] MEDS: ATORVASTATIN 10 MG TABLET PO SCH (23:00)
[2021-08-15] MEDS: TRAMADOL HCL 50 MG TABLET PO SCH ×2 (02:17→14:18)
--- NOTE | 2021-08-15 05:30 | NUR ---
MS RN NOTES ACU-CHECK BLOOD SUGAR CHECK 138,COVERED WITH HUMULIN R 2 UNITS PER SLIDING SCALE.
[2021-08-15] MEDS: BLOOD SUGAR DIAGNOSTIC 1 EACH STRIP IN SCH ×3 (05:41→17:13)
[2021-08-15] MEDS: INSULIN REGULAR, HUMAN 100 UNIT/ML 3 ML VIAL SQ PRN (05:44)
--- NOTE | 2021-08-15 06:18 | NUR ---
MS RN NOTES LAYING ON BED AWAKE AND QUIET,NO SOB,BREATHING EVEN AND UNLABORED,,CALL LIGHT AND REACH,NEEDS ANTICIPATED.POSSIBLE D/C BACK TO [facility] IF ACCEPTED.
--- NOTE | 2021-08-15 07:33 | NUR ---
MS RN OPENING NOTES PATIENT ASLEEP IN BED. PATIENT WITH REGULAR AND UNLABORED BREATHING ON ROOM AIR TOLERATING WELL. NO SIGNS AND SYMPTOMS OF DISTRESS NOTED AT THIS TIME. IV ACCESS R W G #22 SL. ELVER AV SHUNT PRESENT AND IN PLACE. SAFETY PRECAUTIONS ENFORCED WITH BED LOCKED AND AT LOWEST POSITION. SIDE RAILS UP X2. CALL LIGHT WITHIN REACH AT ALL TIMES. WILL CONTINUE TO MONITOR PATIENT.
[2021-08-15 08:15] VITALS: BP 124/75
[2021-08-15] MEDS: VIT B CMPLX 3/FA/VIT C/BIOTIN 1 TAB TABLET PO SCH (08:45)
[2021-08-15] MEDS: CHOLECALCIFEROL 1,000 UNIT TABLET (VIT D3) PO SCH (08:45)
[2021-08-15] MEDS: HALOPERIDOL 5 MG TABLET PO SCH ×3 (08:45→17:00)
[2021-08-15] MEDS: PANTOPRAZOLE 40 MG TABLET.DR PO SCH (08:45)
[2021-08-15] MEDS: SEVELAMER CARBONATE 800 MG TABLET PO SCH ×3 (08:45→17:00)
[2021-08-15] MEDS: BENZTROPINE MESYLATE (1 MG) 1 MG TABLET PO SCH ×3 (08:46→17:00)
[2021-08-15] MEDS: DILTIAZEM HCL CD 120 MG PO SCH (08:46)
[2021-08-15] MEDS: CARVEDILOL 12.5 MG TABLET PO SCH ×2 (08:46→17:00)
[2021-08-15 10:05] LABS: CALCIUM, SERUM 8.7 mg/dL (8.5-10.1); CREATININE 8.8 mg/dL (0.6-1.3); POTASSIUM 5.5 mmol/L (3.5-5.1)
--- NOTE | 2021-08-15 15:15 | NUR ---
MS RN NOTES PATIENT ABOUT TO START HD
[2021-08-15 15:51] VITALS: BP 106/74
--- NOTE | 2021-08-15 17:21 | NUR ---
MS RN NOTES HD DONE. PAIENT TOLERATED WELL. BP 101/59
--- NOTE | 2021-08-15 18:58 | NUR ---
MS RN CLOSING NOTES. PATIENT RESTING IN BED, NO DISTRESS. AWAITING AMBULANCE FOR D/C VISCOSITY TESTER. ENDORSED TO ALLOCATION ANALYST NURSE FOR D/C ALL DOCUMENTS READY AND SIGNED. FACILITY CALLED FOR REPORT.
--- NOTE | 2021-08-15 19:00 | NUR ---
RN notes Received Pt from morning nurse. Pt is resting in bed comfortably. Pt is alert and orientedX2. On room air. no SOB. No S/S of distress noted. IV site at R wrist # 22 is clean, intact and SL. ELVER AV shunt is clean, intact. Pt is going to be DC to [facility] at 2015 pm picking supervisor time. Report was given to CARLINE Nugent per am nurse. Pt's belonging is signed. DC paperwork is signed. Safety precaution is maintained. Will continue to monitor.
[2021-08-15 21:00] VITALS: BP 107/69
--- NOTE | 2021-08-15 21:30 | NUR ---
RN DC notes [facility] two EMT's (Jarret, EMT # [id number]) just arrived to nut picker and transferred Pt to [facility]. Report is given to PONCHO Wheat. VS is stable. IV line is removed. Pt's armband is removed and face mask is on. Pt's DC paper work and belonging's is given to PONCHO Wheat. Report given to CARLINE Nugent at nursing facility.
== END 2021-08-15 21:30 | DRG 314 ==
LOC: ER 09:18 → TRANSITION 18:30 → TELE 07-14 14:43 → MED 07-21 15:43 → ICU 08-03 06:57 → TELE 08-03 18:26 → MED 08-12 08:30
PROVIDERS: ADMIT Nurse Practitioner Family; ATTEND Internal Medicine
PROC: 06HY33Z Insertion of Infusion Device into Lower Vein, Percutaneous Approach (ICD-10-PCS; principal; 2021-07-15)
PROC: 5A1D70Z Performance of Urinary Filtration, Intermittent, Less than 6 Hours Per Day (ICD-10-PCS; 2021-07-15)
PROC: 5A1D70Z Performance of Urinary Filtration, Intermittent, Less than 6 Hours Per Day (ICD-10-PCS; 2021-07-16)
PROC: 5A1D70Z Performance of Urinary Filtration, Intermittent, Less than 6 Hours Per Day (ICD-10-PCS; 2021-07-18)
PROC: 0W993ZZ Drainage of Right Pleural Cavity, Percutaneous Approach (ICD-10-PCS; 2021-07-19)
PROC: 5A1D70Z Performance of Urinary Filtration, Intermittent, Less than 6 Hours Per Day (ICD-10-PCS; 2021-07-20)
PROC: 5A1D70Z Performance of Urinary Filtration, Intermittent, Less than 6 Hours Per Day (ICD-10-PCS; 2021-07-22)
PROC: 0W993ZZ Drainage of Right Pleural Cavity, Percutaneous Approach (ICD-10-PCS; 2021-07-23)
PROC: 0W993ZZ Drainage of Right Pleural Cavity, Percutaneous Approach (ICD-10-PCS; 2021-07-26)
PROC: 0W9930Z Drainage of Right Pleural Cavity with Drainage Device, Percutaneous Approach (ICD-10-PCS; 2021-07-28)
DX: T82.868A Thrombosis due to vascular prosthetic devices, implants and grafts, initial encounter (principal); N18.6 End stage renal disease; J96.21 Acute and chronic respiratory failure with hypoxia; T82.510A Breakdown (mechanical) of surgically created arteriovenous fistula, initial encounter; I13.2 Hypertensive heart and chronic kidney disease with heart failure and with stage 5 chronic kidney disease, or end stage renal disease; T17.890A Other foreign object in other parts of respiratory tract causing asphyxiation, initial encounter; I42.9 Cardiomyopathy, unspecified; J94.2 Hemothorax; Y92.129 Unspecified place in nursing home as the place of occurrence of the external cause; Z99.2 Dependence on renal dialysis; E11.22 Type 2 diabetes mellitus with diabetic chronic kidney disease; Y71.2 Prosthetic and other implants, materials and accessory cardiovascular devices associated with adverse incidents; E87.70 Fluid overload, unspecified; E87.5 Hyperkalemia; I50.9 Heart failure, unspecified; I25.10 Atherosclerotic heart disease of native coronary artery without angina pectoris; D63.1 Anemia in chronic kidney disease; F29 Unspecified psychosis not due to a substance or known physiological condition; I34.0 Nonrheumatic mitral (valve) insufficiency; I48.91 Unspecified atrial fibrillation; Z86.73 Personal history of transient ischemic attack (TIA), and cerebral infarction without residual deficits; I70.0 Atherosclerosis of aorta; J44.9 Chronic obstructive pulmonary disease, unspecified; Y92.9 Unspecified place or not applicable; M89.8X9 Other specified disorders of bone, unspecified site; Z79.02 Long term (current) use of antithrombotics/antiplatelets; Z79.4 Long term (current) use of insulin; Z20.822 Contact with and (suspected) exposure to COVID-19; Z89.511 Acquired absence of right leg below knee; Z95.0 Presence of cardiac pacemaker; X58.XXXA Exposure to other specified factors, initial encounter; Y93.9 Activity, unspecified; Y92.239 Unspecified place in hospital as the place of occurrence of the external cause
CPT/HCPCS: 36415; 36600; 71045-TC; 71250-TC; 73020; 73502; 80048-TC; 80053-TC; 82803-TC; 82962-TC; 83735-TC; 84100-TC; 84439-TC; 84443-TC; 85025-TC; 85610-TC; 85730-TC; 86706; 87070-TC; 87075-TC; 87081-TC; 87102-TC; 87116; 87206; 87340; 88108-TC; 88305-TC; 89051-TC; 90935-TC; 93307-TC; 93930-TC; 93971-TC; A4216; A6403; C1750; C9803; G0378; J0610; J1644; J1815; J2250; J2310; J2405; J2543; J3010; J3490; J7030; J7050; J7060; P9047; Q0163; Q9966